=== PATIENT | female | born 1935 | race Caucasian/White ===

== ENCOUNTER 2019-02-05 02:23 | Inpatient (IN) | payer MEDICARE, OTHER ==
[~2019-02-05] VITALS: Ht 162.6 cm; Wt 68.2 kg
[2019-02-05] MEDS ORDERED: SOD CHLORIDE 0.9% 500 ML IV STA (02:27)
[2019-02-05 02:38] VITALS: Ht 162.6 cm; Wt 68.2 kg
[2019-02-05] MEDS: POTASSIUM CHLORIDE 100 ML IVPB SCH ×2 (04:06→06:02)
--- NOTE | 2019-02-05 04:07 | ERD ---
ER Documentation Chief Complaint Chief Complaint BIBRA fr home,vomit dark liquid,abd pain,black tarry stool,hematur X1 month HPI This is an 84-year-old female brought in from home with complaints of vomiting coffee-ground along with abdominal pain and black tarry stools on and off for the past month or tonight. She is had 2 episodes of black tarry vomiting along with 2 episodes of black tarry stool. No other current complaints. ROS All systems reviewed and are negative except as per history of present illness. Allergies Allergies: Coded Allergies: No Known Allergy (Unverified , 02/05/19) PMhx/Soc History of Surgery: Yes (lithotripsy,total cholecystectomy) Anesthesia Reaction: No Hx Neurological Disorder: No Hx Respiratory Disorders: No Hx Cardiac Disorders: Yes (HTN) Hx Psychiatric Problems: No Hx Miscellaneous Medical Probl: No Hx Alcohol Use: No Hx Substance Use: No Hx Tobacco Use: No Smoking Status: Never smoker Physical Exam Vitals Vital Signs Date Temp Pulse Resp B/P (MAP) Pulse Ox O2 O2 Flow FiO2 Time Delivery Rate 02/05/19 80 21 148/63 94 Room Air 03:30 (91) 02/05/19 78 17 144/66 98 Room Air 03:00 (92) 02/05/19 98.4 88 18 150/68 97 02:38 (95) Physical Exam Const: No acute distress Head: Atraumatic Eyes: Normal Conjunctiva ENT: Normal External Ears, Nose and Mouth. Neck: Full range of motion. No meningismus. Resp: Clear to auscultation bilaterally Cardio: Regular rate and rhythm, no murmurs Abd: Soft, non tender, non distended. Normal bowel sounds Skin: No petechiae or rashes Back: No midline or flank tenderness Ext: No cyanosis, or edema Neur: Awake and alert Psych: Normal Mood and Affect Result Diagram: 02/05/19 0244 02/05/19 0244 Results 24 hrs Laboratory Tests Test 02/05/19 02:44 White Blood Count 8.8 10^3/ul Red Blood Count 4.27 10^6/ul Hemoglobin 12.3 g/dl Hematocrit 37.8 % Mean Corpuscular Volume 88.5 fl Mean Corpuscular Hemoglobin 28.8 pg Mean Corpuscular Hemoglobin Concent 32.5 g/dl Red Cell Distribution Width 16.6 % Platelet Count 251 10^3/UL Mean Platelet Volume 10.2 fl Immature Granulocytes % 0.700 % Neutrophils % 72.7 % Lymphocytes % 18.1 % Monocytes % 8.2 % Eosinophils % 0.0 % Basophils % 0.3 % Nucleated Red Blood Cells % 0.0 /100WBC Immature Granulocytes # 0.060 10^3/ul Neutrophils # 6.4 10^3/ul Lymphocytes # 1.6 10^3/ul Monocytes # 0.7 10^3/ul Eosinophils # 0.0 10^3/ul Basophils # 0.0 10^3/ul Nucleated Red Blood Cells # 0.0 10^3/ul Prothrombin Time 13.2 Sec Prothrombin Time Ratio 1.0 INR International Normalized Ratio 0.99 Activated Partial Thromboplast Time 30.9 Sec Sodium Level 147 mmol/L Potassium Level 2.9 mmol/L Chloride Level 103 mmol/L Carbon Dioxide Level 32 mmol/L Anion Gap 12 Blood Urea Nitrogen 10 mg/dl Creatinine 0.62 mg/dl Est Glomerular Filtrat Rate mL/min mL/min Glucose Level 144 mg/dl Calcium Level 9.5 mg/dl Total Bilirubin 1.7 mg/dl Direct Bilirubin 0.70 mg/dl Indirect Bilirubin 1.0 mg/dl Aspartate Amino Transf (AST/SGOT) 117 IU/L Alanine Aminotransferase (ALT/SGPT) 75 IU/L Alkaline Phosphatase 322 IU/L Troponin I < 0.012 ng/ml Total Protein 7.1 g/dl Albumin 3.5 g/dl Globulin 3.60 g/dl Albumin/Globulin Ratio 0.97 Lipase 43 U/L Current Medications Medications Dose Sig/Gabriela Start Time Status Last (Trade) Ordered Route PRN Stop Time Admin Dose Reason Admin Sodium 500 ml @ Q1H STAT 02/05/19 DC 02/05/19 Chloride 500 mls/hr IV 02:27 02:51 02/05/19 03:26 Potassium 100 ml @ Q2H IVPB 02/05/19 Chloride 50 mls/hr 04:00 02/05/19 07:59 Procedures/MDM EKG: Rate/Rhythm: [Normal Sinus Rhythm] QRS, ST, T-waves: [No changes consistent w/ acute ischemia] Impression: [No evidence of ischemia or arrhythmia] Chest X-ray 1V Interpreted by me: Soft Tissue: No acute abnormalities Bones: No acute abnormalities Mediastinum/Cardiac Silhouette/Lungs: [No acute abnormalities] Medical decision makin-year-old female as well as space hematochezia along with hematemesis. Also found to be hypokalemic which was repleted. Patient will be admitted for further evaluation and management. Departure Diagnosis: Primary Impression: Rectal hemorrhage Condition: Stable CON MICHAUD Feb 05, 2019 04:07
[2019-02-05] MEDS ORDERED: ACETAMINOPHEN 325 MG TAB PO PRN (05:30)
[2019-02-05] MEDS ORDERED: ONDANSETRON 4 MG INJ IV PRN (05:30)
[2019-02-05] MEDS ORDERED: SOD CHLORIDE 0.9% 1,000 ML IV SCH (05:31)
[2019-02-05] MEDS ORDERED: ONDANSETRON 4 MG INJ IV STA (05:47)
[2019-02-05] MEDS ORDERED: morphine 4 MG/ML VIAL IV STA (05:47)
[2019-02-05] MEDS ORDERED: ONDANSETRON 4 MG INJ ONE (06:00)
[2019-02-05] MEDS ORDERED: NACL 0.9% 3 ML SYG IV SCH (06:00)
[2019-02-05] MEDS ORDERED: morphine 4 MG/ML VIAL ONE (06:00)
[2019-02-05] MEDS ORDERED: PIPER-TAZO 3.375 GM IV (PMX) 100 ML ONE (06:16)
[2019-02-05] MEDS: PIPER-TAZO 3.375 GM IV (PMX) 100 ML IVPB SCH ×3 (06:19→18:28)
[2019-02-05] MEDS ORDERED: BENA20TA4 PO (07:43)
[2019-02-05] MEDS ORDERED: METO-336 PO (07:43)
[2019-02-05] MEDS ORDERED: ATOR10TA65 PO (07:44)
[2019-02-05] MEDS ORDERED: AMLO-147 PO (07:44)
[2019-02-05] MEDS ORDERED: ASPI81TA52 PO (07:44)
[2019-02-05] MEDS ORDERED: POTA10TA37 PO (07:45)
[2019-02-05] MEDS ORDERED: DOCU250C68 PO (07:45)
[2019-02-05] MEDS ORDERED: ESOM40CA PO (07:45)
[2019-02-05] MEDS ORDERED: TAMS-14 PO (07:46)
[2019-02-05 08:00] VITALS: BP 119/78; PULSE 86; RESP 18
[2019-02-05] MEDS: ONDANSETRON 4 MG INJ IV PRN (08:53)
[2019-02-05] MEDS ORDERED: FAMOTIDINE 20 MG INJ IV SCH (09:00)
--- NOTE | 2019-02-05 09:09 | PN ---
Date/Time of Note Date/Time of Note DATE: 02/05/19 TIME: 09:09 Assessment/Plan Lines/Catheters IV C[facility]ter Type (from [facility]): Saline Lock Assessment/Plan Result Diagram: 02/05/19 0803 02/05/19 0800 Results 24hrs Laboratory Tests Test 02/05/19 02:43 02/05/19 02:44 02/05/19 03:50 02/05/19 08:00 Hemoglobin A1c 5.5 Magnesium Level 1.6 L Triglycerides Level 223 H Cholesterol Level 198 LDL Cholesterol, 116 Calculated HDL Cholesterol 37 Cholesterol/HDL 5.3 Ratio Thyroid Stimulating Pending Hormone (TSH) White Blood Count 8.8 Red Blood Count 4.27 Hemoglobin 12.3 Hematocrit 37.8 Mean Corpuscular 88.5 Volume Mean Corpuscular 28.8 L Hemoglobin Mean Corpuscular 32.5 Hemoglobin Concent Red Cell 16.6 H Distribution Width Platelet Count 251 Mean Platelet Volume 10.2 Immature 0.700 H Granulocytes % Neutrophils % 72.7 Lymphocytes % 18.1 Monocytes % 8.2 Eosinophils % 0.0 Basophils % 0.3 Nucleated Red Blood 0.0 Cells % Immature 0.060 H Granulocytes # Neutrophils # 6.4 Lymphocytes # 1.6 Monocytes # 0.7 Eosinophils # 0.0 Basophils # 0.0 Nucleated Red Blood 0.0 Cells # Prothrombin Time 13.2 Prothrombin Time 1.0 Ratio INR International 0.99 Normalized Ratio Activated 30.9 Partial Thromboplast Time Sodium Level 147 H 147 H Potassium Level 2.9 *L 3.5 Chloride Level 103 106 Carbon Dioxide Level 32 H 31 Anion Gap 12 10 Blood Urea Nitrogen 10 8 Creatinine 0.62 0.63 Est Glomerular Filtrat Rate mL/min Glucose Level 144 106 Calcium Level 9.5 9.0 Total Bilirubin 1.7 H Direct Bilirubin 0.70 H Indirect Bilirubin 1.0 Aspartate Amino 117 H Transf (AST/SGOT) Alanine 75 H Aminotransferase (AL T/SGPT) Alkaline Phosphatase 322 H Troponin I < 0.012 Total Protein 7.1 Albumin 3.5 Globulin 3.60 H Albumin/Globulin 0.97 Ratio Lipase 43 Urine Color YELLOW Urine Clarity CLEAR Urine pH 9.0 Urine Specific 1.010 [place] Urine Ketones TRACE A Urine Nitrite NEGATIVE Urine Bilirubin NEGATIVE Urine Urobilinogen 2+ H Urine Leukocyte NEGATIVE Esterase Urine Hemoglobin NEGATIVE Urine Glucose NEGATIVE Urine Total Protein NEGATIVE Test 02/05/19 08:03 White Blood Count 8.7 Red Blood Count 3.84 L Hemoglobin 11.3 L Hematocrit 34.8 L Mean Corpuscular 90.6 Volume Mean Corpuscular 29.4 Hemoglobin Mean Corpuscular 32.5 Hemoglobin Concent Red Cell 16.7 H Distribution Width Platelet Count 242 Mean Platelet Volume 10.4 Immature 0.600 H Granulocytes % Neutrophils % 70.7 Lymphocytes % 21.4 Monocytes % 7.0 Eosinophils % 0.0 Basophils % 0.3 Nucleated Red Blood 0.0 Cells % Immature 0.050 H Granulocytes # Neutrophils # 6.2 Lymphocytes # 1.9 Monocytes # 0.6 Eosinophils # 0.0 Basophils # 0.0 Nucleated Red Blood 0.0 Cells # Exam/Review of Systems Exam Vitals Vital Signs Date Temp Pulse Resp B/P (MAP) Pulse Ox O2 O2 Flow FiO2 Time Delivery Rate 02/05/19 75 22 110/66 100 Room Air 08:22 (81) 02/05/19 98.5 08:00 Intake and Output 02/04/19 02/04/19 02/05/19 1515:00 23:00 07:00 IntakeIntake Total 600 ml BalanceBalance 600 ml Results Results 24hrs Laboratory Tests Test 02/05/19 02:43 02/05/19 02:44 02/05/19 03:50 02/05/19 08:00 Hemoglobin A1c 5.5 Magnesium Level 1.6 L Triglycerides Level 223 H Cholesterol Level 198 LDL Cholesterol, 116 Calculated HDL Cholesterol 37 Cholesterol/HDL 5.3 Ratio Thyroid Stimulating Pending Hormone (TSH) White Blood Count 8.8 Red Blood Count 4.27 Hemoglobin 12.3 Hematocrit 37.8 Mean Corpuscular 88.5 Volume Mean Corpuscular 28.8 L Hemoglobin Mean Corpuscular 32.5 Hemoglobin Concent Red Cell 16.6 H Distribution Width Platelet Count 251 Mean Platelet Volume 10.2 Immature 0.700 H Granulocytes % Neutrophils % 72.7 Lymphocytes % 18.1 Monocytes % 8.2 Eosinophils % 0.0 Basophils % 0.3 Nucleated Red Blood 0.0 Cells % Immature 0.060 H Granulocytes # Neutrophils # 6.4 Lymphocytes # 1.6 Monocytes # 0.7 Eosinophils # 0.0 Basophils # 0.0 Nucleated Red Blood 0.0 Cells # Prothrombin Time 13.2 Prothrombin Time 1.0 Ratio INR International 0.99 Normalized Ratio Activated 30.9 Partial Thromboplast Time Sodium Level 147 H 147 H Potassium Level 2.9 *L 3.5 Chloride Level 103 106 Carbon Dioxide Level 32 H 31 Anion Gap 12 10 Blood Urea Nitrogen 10 8 Creatinine 0.62 0.63 Est Glomerular Filtrat Rate mL/min Glucose Level 144 106 Calcium Level 9.5 9.0 Total Bilirubin 1.7 H Direct Bilirubin 0.70 H Indirect Bilirubin 1.0 Aspartate Amino 117 H Transf (AST/SGOT) Alanine 75 H Aminotransferase (AL T/SGPT) Alkaline Phosphatase 322 H Troponin I < 0.012 Total Protein 7.1 Albumin 3.5 Globulin 3.60 H Albumin/Globulin 0.97 Ratio Lipase 43 Urine Color YELLOW Urine Clarity CLEAR Urine pH 9.0 Urine Specific 1.010 [place] Urine Ketones TRACE A Urine Nitrite NEGATIVE Urine Bilirubin NEGATIVE Urine Urobilinogen 2+ H Urine Leukocyte NEGATIVE Esterase Urine Hemoglobin NEGATIVE Urine Glucose NEGATIVE Urine Total Protein NEGATIVE Test 02/05/19 08:03 White Blood Count 8.7 Red Blood Count 3.84 L Hemoglobin 11.3 L Hematocrit 34.8 L Mean Corpuscular 90.6 Volume Mean Corpuscular 29.4 Hemoglobin Mean Corpuscular 32.5 Hemoglobin Concent Red Cell 16.7 H Distribution Width Platelet Count 242 Mean Platelet Volume 10.4 Immature 0.600 H Granulocytes % Neutrophils % 70.7 Lymphocytes % 21.4 Monocytes % 7.0 Eosinophils % 0.0 Basophils % 0.3 Nucleated Red Blood 0.0 Cells % Immature 0.050 H Granulocytes # Neutrophils # 6.2 Lymphocytes # 1.9 Monocytes # 0.6 Eosinophils # 0.0 Basophils # 0.0 Nucleated Red Blood 0.0 Cells # Medications Medication Current Medications Piperacillin Sod/ Tazobactam Sod 100 ml @ 200 mls/hr Q6 IVPB Last administered on 02/05/19at 06:19; Admin Dose 200 MLS/HR; Start 02/05/19 at 06:00 Sodium Chloride 1,000 ml @ 75 mls/hr [id number] IV Last administered on 02/05/19at 06:02; Admin Dose 75 MLS/HR; Start 02/05/19 at 05:31 IV Flush (NS 3 ml) 3 ml PER PROTOCOL IV ; Start 02/05/19 at 06:00 Ondansetron HCl (Zofran Inj) 4 mg Q6H PRN IV NAUSEA/VOMITING Last administered on 02/05/19at 08:53; Admin Dose 4 MG; Start 02/05/19 at 06:00 Acetaminophen (Tylenol Tab) 650 mg Q6H PRN PO .PAIN 1-3 OR TEMP; Start 02/05/19 at 06:00 Morphine Sulfate (morphine) 2 mg Q4H PRN IV .SEVERE PAIN 7-10; Start 02/05/19 at 06:00 Famotidine (Pepcid Iv) 20 mg Q12 IV Last administered on 02/05/19at 08:51; Admin Dose 20 MG; Start 02/05/19 at 09:00 Amlodipine Besylate (Norvasc) 10 mg BID PO ; Start 02/05/19 at 21:00; Status UNV Atorvastatin Calcium (Lipitor) 10 mg QHS PO ; Start 02/05/19 at 21:00; Status UNV Benazepril HCl (Lotensin) 20 mg BID PO ; Start 02/05/19 at 21:00; Status UNV Docusate Sodium (Colace) 250 mg DAILY PO ; Start 02/06/19 at 09:00; Status UNV Metoprolol Succinate (Toprol Xl) 100 mg DAILY PO ; Start 02/06/19 at 09:00; Status UNV Tamsulosin HCl (Flomax) 0.4 mg DAILY PO ; Start 02/06/19 at 09:00; Status UNV JENNIE JEAN BAPTISTE NP Feb 05, 2019 09:09
--- NOTE | 2019-02-05 09:13 | HP ---
Date/Time of Note Date/Time of Note DATE: 02/05/19 TIME: 09:13 Assessment/Plan VTE Prophylaxis SCD applied (from Nsg): Yes Pharmacological prophylaxis: NA/contraindicated Pharm contraindication: bleeding Lines/Catheters IV Catheter Type (from Nrsg): Saline Lock Assessment/Plan Hospital Course SUBJECTIVE: Lying in bed, having nausea. Also having right-sided and epigastric abdominal pain OBJECTIVE: Vital signs-see below PHYSICAL EXAM: Constitutional: Elderly Sudanese female,not in acute distress. HEENT: Head atraumatic and normocephalic. Eyes: Extraocular muscles intact. Anicteric sclerae. Pupils equal bilaterally, reactive to light. NECK: Supple without lymph node. CHEST: Clear and good breath sounds equally. No wheezing. No rhonchi. HEART: S1, S2. Regular rate and rhythm. ABDOMEN:Epigastric/RUL/RLL tenderness. Soft with no rebound tenderness. Bowel sounds hypoactive. EXTREMITIES: No cyanosis, clubbing or edema. NEUROLOGIC: Alert and oriented x3. No focal deficit. No sensory deficit. PSYCHOSOCIAL: No signs of depression. INTEGUMENTARY: No open wounds. ASSESSMENT AND PLAN:84 yo F w/htn,dlp,cholecystectomy,renal stones, lithotripsy here w/ coffee-ground emesis, epigastric/right-sided abdominal pain, and black tarry stoolx 1mos duration got worse this morning with subjective fevers... Abdominal pain with ?coffee-ground emesis/tarry stool -Obtain stool OB -Protonix drip -N.p.o in anticipation for EGD -IV fluids -GI consult Transaminase elevation with hyperbilirubinemia -Abdominal exam shows tenderness to epigastric/RUQ -Proceed with MRCP to rule out choledocholithiasis -Follow-up GI recommendations Mild diverticulitis -Could be attributing to abdominal pain although location of pain is right- sided.. -We will give empiric antimicrobials -Bowel rest, IV fluids Anemia, rule out GI bleed -Monitor H&H closely and transfuse as needed. Currently H&H stable. Electronic derangement with hypernatremia/hypokalemia likely secondary to GI loss/volume contraction -IV fluids. Monitor lites level closely. Hypertension -Currently stable. Resume antihypertensives once stable for p.o. Dyslipidemia -Resume statin once stable for p.o. Urinary retention -Resume Flomax when stable for p.o. DVT prophylaxis: SCDs PUD prophylaxis: Protonix CODE STATUS: Full code Diet: N.p.o. Rest of the management depend on hospital course. Approximately 60 m spent on this history and physical. Patient was seen in collaboration with Dr. Cruz. Result Diagram: 02/05/19 0803 02/05/19 0800 Results 24hrs Laboratory Tests Test 02/05/19 02:43 02/05/19 02:44 02/05/19 03:50 02/05/19 08:00 Hemoglobin A1c 5.5 Magnesium Level 1.6 L Triglycerides Level 223 H Cholesterol Level 198 LDL Cholesterol, 116 Calculated HDL Cholesterol 37 Cholesterol/HDL 5.3 Ratio Thyroid Stimulating Pending Hormone (TSH) White Blood Count 8.8 Red Blood Count 4.27 Hemoglobin 12.3 Hematocrit 37.8 Mean Corpuscular 88.5 Volume Mean Corpuscular 28.8 L Hemoglobin Mean Corpuscular 32.5 Hemoglobin Concent Red Cell 16.6 H Distribution Width Platelet Count 251 Mean Platelet Volume 10.2 Immature 0.700 H Granulocytes % Neutrophils % 72.7 Lymphocytes % 18.1 Monocytes % 8.2 Eosinophils % 0.0 Basophils % 0.3 Nucleated Red Blood 0.0 Cells % Immature 0.060 H Granulocytes # Neutrophils # 6.4 Lymphocytes # 1.6 Monocytes # 0.7 Eosinophils # 0.0 Basophils # 0.0 Nucleated Red Blood 0.0 Cells # Prothrombin Time 13.2 Prothrombin Time 1.0 Ratio INR International 0.99 Normalized Ratio Activated 30.9 Partial Thromboplast Time Sodium Level 147 H 147 H Potassium Level 2.9 *L 3.5 Chloride Level 103 106 Carbon Dioxide Level 32 H 31 Anion Gap 12 10 Blood Urea Nitrogen 10 8 Creatinine 0.62 0.63 Est Glomerular Filtrat Rate mL/min Glucose Level 144 106 Calcium Level 9.5 9.0 Total Bilirubin 1.7 H Direct Bilirubin 0.70 H Indirect Bilirubin 1.0 Aspartate Amino 117 H Transf (AST/SGOT) Alanine 75 H Aminotransferase (AL T/SGPT) Alkaline Phosphatase 322 H Troponin I < 0.012 Total Protein 7.1 Albumin 3.5 Globulin 3.60 H Albumin/Globulin 0.97 Ratio Lipase 43 Urine Color YELLOW Urine Clarity CLEAR Urine pH 9.0 Urine Specific 1.010 [place] Urine Ketones TRACE A Urine Nitrite NEGATIVE Urine Bilirubin NEGATIVE Urine Urobilinogen 2+ H Urine Leukocyte NEGATIVE Esterase Urine Hemoglobin NEGATIVE Urine Glucose NEGATIVE Urine Total Protein NEGATIVE Test 02/05/19 08:03 White Blood Count 8.7 Red Blood Count 3.84 L Hemoglobin 11.3 L Hematocrit 34.8 L Mean Corpuscular 90.6 Volume Mean Corpuscular 29.4 Hemoglobin Mean Corpuscular 32.5 Hemoglobin Concent Red Cell 16.7 H Distribution Width Platelet Count 242 Mean Platelet Volume 10.4 Immature 0.600 H Granulocytes % Neutrophils % 70.7 Lymphocytes % 21.4 Monocytes % 7.0 Eosinophils % 0.0 Basophils % 0.3 Nucleated Red Blood 0.0 Cells % Immature 0.050 H Granulocytes # Neutrophils # 6.2 Lymphocytes # 1.9 Monocytes # 0.6 Eosinophils # 0.0 Basophils # 0.0 Nucleated Red Blood 0.0 Cells # HPI/ROS Admit Date/Time Admit Date/Time Feb 05, 2019 at 05:27 Hx of Present Illness This is a 84-year-old Sudanese speaking female with a past medical history of hypertension, dyslipidemia, urinary retention, kidney stones, status post lithotripsies in the past, open cholecystectomy 20 years ago, presented to the emergency room with worsening nausea with coffee-ground emesis, right-sided and epigastric abdominal pain with subjective fevers started this morning at 5:00. 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 Ashton tomorrow. She was also having loss of appetite secondary to nausea and vomiting and had also lost 10 pounds of weight in the last month. Patient denies shortness of breath, palpitation, chest pain, dizziness, headache, loss of consciousness, numbness, tingling, diarrhea, constipation, or other constitutional symptoms. In the emergency room, patient's initial hemoglobin 12.3/hematocrit 37.8 which then dropped to 11.3/34.8. Patient also had a sodium level of 147, potassium 2.9, magnesium 1.6, total bilirubin 1.7, direct bilirubin 0.70, AST 117, ALT 75, alkaline phosphatase 322. Patient UA also showed 2+ urobilinogen. Coag studies negative. Abdominal CT showed mild acute diverticulitis of the mild to proximal sigmoid colon without abscess or free air. There was also numerous bilateral nonobstructing renal calcified calculi. There is also evidence of hepatomegaly with old granulomatous disease. There also showed a central intra-and extrahepatic biliary ductal dilatation to the level of pancreatic head without obstruction. ROS A 12 point review of system was assessed and is negative other than what is mentioned in the HPI. PMH/Family/Social Past Medical History See HPI Medications Current Medications Piperacillin Sod/ Tazobactam Sod 100 ml @ 200 mls/hr Q6 IVPB Last administered on 02/05/19at 06:19; Admin Dose 200 MLS/HR; Start 02/05/19 at 06:00 Sodium Chloride 1,000 ml @ 75 mls/hr [id number] IV Last administered on 02/05/19at 06:02; Admin Dose 75 MLS/HR; Start 02/05/19 at 05:31 IV Flush (NS 3 ml) 3 ml PER PROTOCOL IV ; Start 02/05/19 at 06:00 Ondansetron HCl (Zofran Inj) 4 mg Q6H PRN IV NAUSEA/VOMITING Last administered on 02/05/19at 08:53; Admin Dose 4 MG; Start 02/05/19 at 06:00 Acetaminophen (Tylenol Tab) 650 mg Q6H PRN PO .PAIN 1-3 OR TEMP; Start 02/05/19 at 06:00 Morphine Sulfate (morphine) 2 mg Q4H PRN IV .SEVERE PAIN 7-10; Start 02/05/19 at 06:00 Famotidine (Pepcid Iv) 20 mg Q12 IV Last administered on 02/05/19at 08:51; Admin Dose 20 MG; Start 02/05/19 at 09:00 Amlodipine Besylate (Norvasc) 10 mg BID PO ; Start 02/05/19 at 21:00; Status UNV Atorvastatin Calcium (Lipitor) 10 mg QHS PO ; Start 02/05/19 at 21:00; Status UNV Benazepril HCl (Lotensin) 20 mg BID PO ; Start 02/05/19 at 21:00; Status UNV Docusate Sodium (Colace) 250 mg DAILY PO ; Start 02/06/19 at 09:00; Status UNV Metoprolol Succinate (Toprol Xl) 100 mg DAILY PO ; Start 02/06/19 at 09:00; Status UNV Tamsulosin HCl (Flomax) 0.4 mg DAILY PO ; Start 02/06/19 at 09:00; Status UNV Coded Allergies: No Known Allergy (Unverified , 02/05/19) Past Surgical History See HPI Social History No history of alcohol, smoking or illicit drug use Smoking Status: Never smoker Exam/Review of Systems Vital Signs Vitals Vital Signs Date Temp Pulse Resp B/P (MAP) Pulse Ox O2 O2 Flow FiO2 Time Delivery Rate 02/05/19 75 22 110/66 100 Room Air 08:22 (81) 02/05/19 98.5 08:00 Intake and Output 02/04/19 02/04/19 02/05/19 1515:00 23:00 07:00 IntakeIntake Total 600 ml BalanceBalance 600 ml JENNIE JEAN BAPTISTE NP Feb 05, 2019 09:13
[2019-02-05] MEDS ORDERED: METOCLOPRAMIDE 10 MG INJ IV ONE (09:30)
[2019-02-05] MEDS ORDERED: hydrALAzine 20 MG INJ IV PRN (09:30)
[2019-02-05] MEDS ORDERED: METOCLOPRAMIDE 10 MG INJ IV PRN (09:30)
[2019-02-05] MEDS: DOCUSATE SODIUM 250 MG CAP PO SCH (10:00)
[2019-02-05] MEDS: METOPROLOL (XL) 100 MG TAB PO SCH (10:00)
[2019-02-05] MEDS: TAMSULOSIN (SR) 0.4 MG CAP PO SCH (10:00)
[2019-02-05] MEDS: FISH OIL 1,000 MG CAP PO SCH ×2 (11:00→20:37)
[2019-02-05] MEDS ORDERED: MAGNESIUM SULFATE 2 GM/50 ML 50 ML IVPB ONE (11:00)
[2019-02-05] MEDS: PANTOPRAZOLE IV 80 MG in SOD CHLORIDE 0.9% 100 ML IV SCH ×3 (11:37→20:39)
[2019-02-05] MEDS: SOD CHLORIDE 0.45% 1,000 ML IV SCH ×2 (11:41→23:00)
[2019-02-05] MEDS: ACETAMINOPHEN 650 MG SUPP PR PRN ×2 (12:28→18:28)
--- NOTE | 2019-02-05 13:29 | CONS ---
Assessment/Plan Assessment/Plan Hospital Course (Demo Recall) Summary Assessment and Plan: Assessment: Reported coffee-ground emesis/melena Normocytic anemia Transaminitis with direct hyperbilirubinemia Fevers Sigmoid diverticulitis, mild Hypokalemia-replaced History of cholecystectomy History of Renal stone -S/p lithotripsy Hypertension Dyslipidemia Urinary retention Plan: MRCP- pending-if positive will proceed with ERCP. if negative patient will need EGD to further assess coffee-ground emesis and melena. Continue PPI drip Patient currently on Zosyn Keep NPO for now. Continue to trend LFTs Patient seen in collaboration with Dr. Nieves CC: RAYNA NIEVES MD ; Consultation Date/Type/Reason Admit Date/Time Feb 05, 2019 at 05:27 Date of Consultation: Feb 05, 2019 Type of Consult GI Reason for Consultation Sigmoid diverticulitis. mild Coffee-ground emesis Transaminitis with direct bilirubin rule out choledocholithiasis Date/Time of Note DATE: 02/05/19 TIME: 13:16 Hx of Present Illness This is an 84-year-old Italian female vwho is been admitted for a multitude of issues including mild sigmoid diverticulitis, transaminitis with direct hyperbilirubinemia, normocytic anemia reports of coffee-ground emesis with right-sided, epigastric pain, and fevers. Today hemoglobin is stable at 11.3, INR 0.99 direct bilirubin has increased from this morning at 244 it was noted to be at that time 0.7 with a total bilirubin of 1.7. At 8:00 this morning bilirubin was rechecked showing a total of 2.1 and a direct of 1.1 additionally she has an elevated alkaline phosphatase in the 300s and AST/ALT.the past medical history of hypertension, dyslipidemia, urinary retention, kidney stones status post lithotripsy in the past and a cholecystectomy over 20 years ago. At time evaluation patient complains of epigastric and right upper quadrant pain family is at bedside who states patient has been taking ibuprofen at least once or twice a day for the past 20 days. However 2 days ago she was unable to tolerate ibuprofen any further had episodes of emesis after taking medication therefore medication was switched to Tylenol per family member patient only took one low-dose Tylenol per day x3 days. Discussed results of imaging and lab tests thus far discussed plan for MRCP if positive will proceed with ERCP if negative patient will still require EGD to further assess coffee-ground emesis especially with recent NSAID use. Understanding was verbalized and agreed upon. Review of Systems: A 12 system, review was conducted and is negative except as noted in the HPI or here. Past Medical History Home Meds Reported Medications Tamsulosin Hcl* (Flomax*) 0.4 Mg Cap.er.24h, 0.4 MG PO DAILY, CAP 02/05/19 Docusate Sodium* (Dok*) 250 Mg Capsule, 250 MG PO DAILY, #30 CAP 02/05/19 Esomeprazole Mag Trihydrate (Nexium) 40 Mg Capsule.dr, 40 MG PO DAILY, #30 CAP 02/05/19 Potassium Chloride* (K-Dur*) 10 Meq Tab.prt.sr, 10 MEQ PO TID, TAB 02/05/19 Atorvastatin Calcium (Atorvastatin Calcium) 10 Mg Tablet, 10 MG PO QHS, #30 TAB 02/05/19 Aspirin (Low Dose Aspirin) 81 Mg Tablet.dr, 81 MG PO DAILY, #30 TAB 02/05/19 Amlodipine Besylate* (Amlodipine Besylate*) 10 Mg Tablet, 10 MG PO BID, #30 TAB 02/05/19 Metoprolol Succinate* (Toprol XL*) 100 Mg Tab.sr.24h, 100 MG PO DAILY, #30 TAB 02/05/19 Benazepril Hcl* (Benazepril Hcl*) 20 Mg Tablet, 20 MG PO BID, #60 TAB 02/05/19 Medications Current Medications Piperacillin Sod/ Tazobactam Sod 100 ml @ 200 mls/hr Q6 IVPB Last administered on 02/05/19at 12:28; Admin Dose 200 MLS/HR; Start 02/05/19 at 06:00 IV Flush (NS 3 ml) 3 ml PER PROTOCOL IV ; Start 02/05/19 at 06:00 Ondansetron HCl (Zofran Inj) 4 mg Q6H PRN IV NAUSEA/VOMITING Last administered on 02/05/19at 08:53; Admin Dose 4 MG; Start 02/05/19 at 06:00 Acetaminophen (Tylenol Tab) 650 mg Q6H PRN PO .PAIN 1-3 OR TEMP; Start 02/05/19 at 06:00 Morphine Sulfate (morphine) 2 mg Q4H PRN IV .SEVERE PAIN 7-10; Start 02/05/19 at 06:00 Amlodipine Besylate (Norvasc) 10 mg BID PO ; Start 02/05/19 at 21:00 Atorvastatin Calcium (Lipitor) 10 mg QHS PO ; Start 02/05/19 at 21:00 Benazepril HCl (Lotensin) 20 mg BID PO ; Start 02/05/19 at 21:00 Docusate Sodium (Colace) 250 mg DAILY PO ; Start 02/05/19 at 10:00 Metoprolol Succinate (Toprol Xl) 100 mg DAILY PO ; Start 02/05/19 at 10:00 Tamsulosin HCl (Flomax) 0.4 mg DAILY PO ; Start 02/05/19 at 10:00 Pantoprazole 80 mg/Sodium Chloride 100 ml @ 10 mls/hr Q10H IV Last administered on 02/05/19at 11:37; Admin Dose 10 MLS/HR; Start 02/05/19 at 09:30 Metoclopramide HCl (Reglan) 5 mg Q6H PRN IV nausea/vomiting; Start 02/05/19 at 09:30 Hydralazine HCl (Apresoline) 10 mg Q6H PRN IV sbp>160; Start 02/05/19 at 09:30 Fish Oil (Fish Oil) 1,000 mg BID PO ; Start 02/05/19 at 11:00 Sodium Chloride 1,000 ml @ 80 mls/hr [id number] IV Last administered on 02/05/19at 11:41; Admin Dose 80 MLS/HR; Start 02/05/19 at 10:30 Acetaminophen (Tylenol Supp) 650 mg Q6H PRN [place] FEVER Last administered on 02/05/19at 12:28; Admin Dose 650 MG; Start 02/05/19 at 12:30 Allergies: Coded Allergies: No Known Allergy (Unverified , 02/05/19) Social History Smoking Status: Never smoker Exam/Review of Systems Exam Vitals Vital Signs Date Temp Pulse Resp B/P (MAP) Pulse Ox O2 O2 Flow FiO2 Time Delivery Rate 02/05/19 101.0 12:28 02/05/19 Nasal 2.0 08:55 Cannula 02/05/19 75 22 110/66 100 08:22 (81) Intake and Output 02/04/19 02/04/19 02/05/19 1515:00 23:00 07:00 IntakeIntake Total 600 ml BalanceBalance 600 ml Exam PHYSICAL EXAMINATION: GENERAL: Well developed, well nourished, alert & oriented x 3, in no acute distr ess SKIN: No lesions. HEAD: Normocephalic, atraumatic, no tenderness. EYES: Pupils equal reactive to light and accommodation, no discharge. EARS/NOSE AND THROAT: Ears normal, nose normal. NECK: Supple, no masses. CHEST: Inspection within normal limits. CARDIOVASCULAR: Heart: Regular rate and rhythm RESPIRATORY: Lungs clear to auscultation GASTROINTESTINAL AND LIVER: Abdomen: Soft, epigastric and right-sided pain, non- distended, no hernias, no masses, no organomegaly, no ascites, no guarding, no rebound tenderness, normoactive bowel sounds. Rectal: Deferred. EXTREMITIES: No cyanosis, clubbing or edema. Results Result Diagram: 02/05/19 0803 02/05/19 0800 Results 24hrs Laboratory Tests Test 02/05/19 02:43 02/05/19 02:44 02/05/19 03:50 02/05/19 08:00 Hemoglobin A1c 5.5 Magnesium Level 1.6 L Triglycerides Level 223 H Cholesterol Level 198 LDL Cholesterol, 116 Calculated HDL Cholesterol 37 Cholesterol/HDL 5.3 Ratio Thyroid Stimulating 2.200 Hormone (TSH) White Blood Count 8.8 Red Blood Count 4.27 Hemoglobin 12.3 Hematocrit 37.8 Mean Corpuscular 88.5 Volume Mean Corpuscular 28.8 L Hemoglobin Mean Corpuscular 32.5 Hemoglobin Concent Red Cell 16.6 H Distribution Width Platelet Count 251 Mean Platelet Volume 10.2 Immature 0.700 H Granulocytes % Neutrophils % 72.7 Lymphocytes % 18.1 Monocytes % 8.2 Eosinophils % 0.0 Basophils % 0.3 Nucleated Red Blood 0.0 Cells % Immature 0.060 H Granulocytes # Neutrophils # 6.4 Lymphocytes # 1.6 Monocytes # 0.7 Eosinophils # 0.0 Basophils # 0.0 Nucleated Red Blood 0.0 Cells # Prothrombin Time 13.2 Prothrombin Time 1.0 Ratio INR International 0.99 Normalized Ratio Activated 30.9 Partial Thromboplast Time Sodium Level 147 H 147 H Potassium Level 2.9 *L 3.5 Chloride Level 103 106 Carbon Dioxide Level 32 H 31 Anion Gap 12 10 Blood Urea Nitrogen 10 8 Creatinine 0.62 0.63 Est Glomerular Filtrat Rate mL/min Glucose Level 144 106 Calcium Level 9.5 9.0 Total Bilirubin 1.7 H 2.1 H Direct Bilirubin 0.70 H 1.10 H Indirect Bilirubin 1.0 1.0 Aspartate Amino 117 H 104 H Transf (AST/SGOT) Alanine 75 H 70 H Aminotransferase (AL T/SGPT) Alkaline Phosphatase 322 H 304 H Troponin I < 0.012 Total Protein 7.1 6.8 Albumin 3.5 3.3 Globulin 3.60 H Albumin/Globulin 0.97 Ratio Lipase 43 58 Urine Color YELLOW Urine Clarity CLEAR Urine pH 9.0 Urine Specific 1.010 [place] Urine Ketones TRACE A Urine Nitrite NEGATIVE Urine Bilirubin NEGATIVE Urine Urobilinogen 2+ H Urine Leukocyte NEGATIVE Esterase Urine Hemoglobin NEGATIVE Urine Glucose NEGATIVE Urine Total Protein NEGATIVE Amylase Level 49 Test 02/05/19 08:03 White Blood Count 8.7 Red Blood Count 3.84 L Hemoglobin 11.3 L Hematocrit 34.8 L Mean Corpuscular 90.6 Volume Mean Corpuscular 29.4 Hemoglobin Mean Corpuscular 32.5 Hemoglobin Concent Red Cell 16.7 H Distribution Width Platelet Count 242 Mean Platelet Volume 10.4 Immature 0.600 H Granulocytes % Neutrophils % 70.7 Lymphocytes % 21.4 Monocytes % 7.0 Eosinophils % 0.0 Basophils % 0.3 Nucleated Red Blood 0.0 Cells % Immature 0.050 H Granulocytes # Neutrophils # 6.2 Lymphocytes # 1.9 Monocytes # 0.6 Eosinophils # 0.0 Basophils # 0.0 Nucleated Red Blood 0.0 Cells # Medications Medication Current Medications Piperacillin Sod/ Tazobactam Sod 100 ml @ 200 mls/hr Q6 IVPB Last administered on 02/05/19at 12:28; Admin Dose 200 MLS/HR; Start 02/05/19 at 06:00 IV Flush (NS 3 ml) 3 ml PER PROTOCOL IV ; Start 02/05/19 at 06:00 Ondansetron HCl (Zofran Inj) 4 mg Q6H PRN IV NAUSEA/VOMITING Last administered on 02/05/19at 08:53; Admin Dose 4 MG; Start 02/05/19 at 06:00 Acetaminophen (Tylenol Tab) 650 mg Q6H PRN PO .PAIN 1-3 OR TEMP; Start 02/05/19 at 06:00 Morphine Sulfate (morphine) 2 mg Q4H PRN IV .SEVERE PAIN 7-10; Start 02/05/19 at 06:00 Amlodipine Besylate (Norvasc) 10 mg BID PO ; Start 02/05/19 at 21:00 Atorvastatin Calcium (Lipitor) 10 mg QHS PO ; Start 02/05/19 at 21:00 Benazepril HCl (Lotensin) 20 mg BID PO ; Start 02/05/19 at 21:00 Docusate Sodium (Colace) 250 mg DAILY PO ; Start 02/05/19 at 10:00 Metoprolol Succinate (Toprol Xl) 100 mg DAILY PO ; Start 02/05/19 at 10:00 Tamsulosin HCl (Flomax) 0.4 mg DAILY PO ; Start 02/05/19 at 10:00 Pantoprazole 80 mg/Sodium Chloride 100 ml @ 10 mls/hr Q10H IV Last administered on 02/05/19 11:37; Admin Dose 10 MLS/HR; Start 02/05/19 at 09:30 Metoclopramide HCl (Reglan) 5 mg Q6H PRN IV nausea/vomiting; Start 02/05/19 at 09:30 Hydralazine HCl (Apresoline) 10 mg Q6H PRN IV sbp>160; Start 02/05/19 at 09:30 Fish Oil (Fish Oil) 1,000 mg BID PO ; Start 02/05/19 at 11:00 Sodium Chloride 1,000 ml @ 80 mls/hr [id number] IV Last administered on 02/05/19 11:41; Admin Dose 80 MLS/HR; Start 02/05/19 at 10:30 Acetaminophen (Tylenol Supp) 650 mg Q6H PRN [place] FEVER Last administered on 12:28; Admin Dose 650 MG; Start 02/05/19 at 12:30 MENDY WONG Feb 05, 2019 13:26
[2019-02-05 14:00] VITALS: BP 112/57; PULSE 85; RESP 18
[2019-02-05] MEDS ORDERED: INDOMETHACIN 50 MG SUPP PR ONE (17:00)
--- NOTE | 2019-02-05 17:14 | QN ---
Documentation Comment MRCP reviewed will postpone ERCP and obtain contrast MRI as definition of possible neoplasm critical to therapeutic options endoscopic and otherwise RAYNA JASON MD Feb 05, 2019 17:14
[2019-02-05 20:00] VITALS: BP 126/60; PULSE 75; RESP 17
[2019-02-05] MEDS: BENAZEPRIL 20 MG TAB PO SCH (20:37)
[2019-02-05] MEDS: ATORVASTATIN 10 MG TAB PO SCH (20:37)
[2019-02-05] MEDS: AMLODIPINE 10 MG TAB PO SCH (20:40)
[2019-02-06] VITALS (14 sets, daily range): BP systolic 107–162; BP diastolic 56–100; PULSE 63–73; RESP 13–24
[2019-02-06] MEDS: PIPER-TAZO 3.375 GM IV (PMX) 100 ML IVPB SCH ×4 (01:05→17:16)
[2019-02-06] MEDS: PANTOPRAZOLE IV 80 MG in SOD CHLORIDE 0.9% 100 ML IV SCH ×2 (05:30→16:37)
[2019-02-06] MEDS: FISH OIL 1,000 MG CAP PO SCH ×2 (09:00→20:32)
[2019-02-06] MEDS: AMLODIPINE 10 MG TAB PO SCH ×2 (09:00→20:32)
[2019-02-06] MEDS: BENAZEPRIL 20 MG TAB PO SCH ×2 (09:00→20:32)
[2019-02-06] MEDS: METOPROLOL (XL) 100 MG TAB PO SCH (09:00)
[2019-02-06] MEDS: TAMSULOSIN (SR) 0.4 MG CAP PO SCH (09:00)
[2019-02-06] MEDS: DOCUSATE SODIUM 250 MG CAP PO SCH (09:00)
[2019-02-06] MEDS: morphine 2 MG INJ IV PRN (09:28)
--- NOTE | 2019-02-06 09:33 | PN ---
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 Reported coffee-ground emesis/melena Normocytic anemia Transaminitis with direct hyperbilirubinemia Epigastric/RUQ pain Fevers- resolved Sigmoid diverticulitis, mild Hypokalemia-replaced History of cholecystectomy History of Renal stone -S/p lithotripsy Hypertension Dyslipidemia Urinary retention Plan: Continue PPI drip- continue for now- if HGB stable will change to BID in am MRI abd with/without contrast reviewed with Dr. Nieves Will order CT abd/pelvis with contrast as previous Ct was a noncontrast exam Will order tumor markers Pending results- we may proceed with ERCP later today Please keep patient NPO for now Patient seen in collaboration with Dr. Nieves Subjective: Course reviewed with nursing staff Patient interviewed and examined All labs, imaging and other results reviewed The patient resting in bed, with daughter at bedside to help translate Pt continues to c/o epigastric/RUQ pain- currently on morphine with appropriate relief Discussed results of MRi- and discussed current for today. understanding was verbalized No over signs of GI bleed noted. PHYSICAL EXAMINATION: GENERAL: Alert & oriented x 3, jaundice SKIN: No lesions. HEAD: Normocephalic, atraumatic, no tenderness. EYES: Pupils equal reactive to light and accommodation, icteric sclera no discharge. EARS/NOSE AND THROAT: Ears normal, nose normal. NECK: Supple, no masses. CHEST: Inspection within normal limits. CARDIOVASCULAR: Heart: Regular rate and rhythm RESPIRATORY: Lungs clear to auscultation GASTROINTESTINAL AND LIVER: Abdomen: Soft, epigastric and right-sided pain, non- distended, no hernias, no ascites, no guarding, no rebound tenderness, normoactive bowel sounds. Rectal: Deferred. EXTREMITIES: No cyanosis, clubbing or edema. Result Diagram: 02/06/19 0610 02/06/19 0610 Results 24hrs Laboratory Tests Test 02/05/19 14:09 02/05/19 16:14 02/06/19 06:10 White Blood Count 13.3 #H 8.4 # Red Blood Count 3.95 L 3.83 L Hemoglobin 11.5 L 11.3 L Hematocrit 35.4 L 34.6 L Mean Corpuscular Volume 89.6 90.3 Mean Corpuscular Hemoglobin 29.1 29.5 Mean Corpuscular Hemoglobin Concent 32.5 32.7 Red Cell Distribution Width 16.6 H 17.0 H Platelet Count 234 234 Mean Platelet Volume 10.7 H 10.7 H Immature Granulocytes % 0.600 H 0.500 H Neutrophils % 91.7 H 75.7 Lymphocytes % 4.4 L 16.5 Monocytes % 3.0 6.9 Eosinophils % 0.0 0.0 Basophils % 0.3 0.4 Nucleated Red Blood Cells % 0.0 0.0 Immature Granulocytes # 0.080 H 0.040 H Neutrophils # 12.2 H 6.4 Lymphocytes # 0.6 L 1.4 Monocytes # 0.4 0.6 Eosinophils # 0.0 0.0 Basophils # 0.0 0.0 Nucleated Red Blood Cells # 0.0 0.0 Lactic Acid Level 1.1 Sodium Level 147 H Potassium Level 3.1 L Chloride Level 112 H Carbon Dioxide Level 30 Anion Gap 5 Blood Urea Nitrogen 8 Creatinine 0.63 Est Glomerular Filtrat Rate mL/min Glucose Level 92 Calcium Level 9.4 Total Bilirubin 1.9 H Direct Bilirubin 1.00 H Indirect Bilirubin 0.9 Aspartate Amino Transf (AST/SGOT) 87 H Alanine Aminotransferase (ALT/SGPT) 58 Alkaline Phosphatase 267 H Total Protein 6.5 Albumin 3.1 L Globulin 3.40 H Albumin/Globulin Ratio 0.91 Exam/Review of Systems Exam Vitals Vital Signs Date Temp Pulse Resp B/P (MAP) Pulse Ox O2 O2 Flow FiO2 Time Delivery Rate 02/06/19 98.5 70 18 122/56 98 07:52 (78) 02/06/19 2.0 03:00 02/05/19 Nasal 20:45 Cannula Intake and Output 02/05/19 02/05/19 02/06/19 1515:00 23:00 07:00 IntakeIntake Total 150 ml 370 ml BalanceBalance 150 ml 370 ml Results Results 24hrs Laboratory Tests Test 02/05/19 14:09 02/05/19 16:14 02/06/19 06:10 White Blood Count 13.3 #H 8.4 # Red Blood Count 3.95 L 3.83 L Hemoglobin 11.5 L 11.3 L Hematocrit 35.4 L 34.6 L Mean Corpuscular Volume 89.6 90.3 Mean Corpuscular Hemoglobin 29.1 29.5 Mean Corpuscular Hemoglobin Concent 32.5 32.7 Red Cell Distribution Width 16.6 H 17.0 H Platelet Count 234 234 Mean Platelet Volume 10.7 H 10.7 H Immature Granulocytes % 0.600 H 0.500 H Neutrophils % 91.7 H 75.7 Lymphocytes % 4.4 L 16.5 Monocytes % 3.0 6.9 Eosinophils % 0.0 0.0 Basophils % 0.3 0.4 Nucleated Red Blood Cells % 0.0 0.0 Immature Granulocytes # 0.080 H 0.040 H Neutrophils # 12.2 H 6.4 Lymphocytes # 0.6 L 1.4 Monocytes # 0.4 0.6 Eosinophils # 0.0 0.0 Basophils # 0.0 0.0 Nucleated Red Blood Cells # 0.0 0.0 Lactic Acid Level 1.1 Sodium Level 147 H Potassium Level 3.1 L Chloride Level 112 H Carbon Dioxide Level 30 Anion Gap 5 Blood Urea Nitrogen 8 Creatinine 0.63 Est Glomerular Filtrat Rate mL/min Glucose Level 92 Calcium Level 9.4 Total Bilirubin 1.9 H Direct Bilirubin 1.00 H Indirect Bilirubin 0.9 Aspartate Amino Transf (AST/SGOT) 87 H Alanine Aminotransferase (ALT/SGPT) 58 Alkaline Phosphatase 267 H Total Protein 6.5 Albumin 3.1 L Globulin 3.40 H Albumin/Globulin Ratio 0.91 Medications Medication Current Medications Piperacillin Sod/ Tazobactam Sod 100 ml @ 200 mls/hr Q6 IVPB Last administered on 02/06/19at 05:43; Admin Dose 200 MLS/HR; Start 02/05/19 at 06:00 IV Flush (NS 3 ml) 3 ml PER PROTOCOL IV ; Start 02/05/19 at 06:00 Ondansetron HCl (Zofran Inj) 4 mg Q6H PRN IV NAUSEA/VOMITING Last administered on 02/05/19at 08:53; Admin Dose 4 MG; Start 02/05/19 at 06:00 Acetaminophen (Tylenol Tab) 650 mg Q6H PRN PO .PAIN 1-3 OR TEMP; Start 02/05/19 at 06:00 Morphine Sulfate (morphine) 2 mg Q4H PRN IV .SEVERE PAIN 7-10 Last administered on 02/06/19 09:28; Admin Dose 2 MG; Start 02/05/19 at 06:00 Amlodipine Besylate (Norvasc) 10 mg BID PO ; Start 02/05/19 at 21:00 Atorvastatin Calcium (Lipitor) 10 mg QHS PO ; Start 02/05/19 at 21:00 Benazepril HCl (Lotensin) 20 mg BID PO ; Start 02/05/19 at 21:00 Docusate Sodium (Colace) 250 mg DAILY PO ; Start 02/05/19 at 10:00 Metoprolol Succinate (Toprol Xl) 100 mg DAILY PO ; Start 02/05/19 at 10:00 Tamsulosin HCl (Flomax) 0.4 mg DAILY PO ; Start 02/05/19 at 10:00 Pantoprazole 80 mg/Sodium Chloride 100 ml @ 10 mls/hr Q10H IV Last administered on 02/05/19 11:37; Admin Dose 10 MLS/HR; Start 02/05/19 at 09:30 Metoclopramide HCl (Reglan) 5 mg Q6H PRN IV nausea/vomiting; Start 02/05/19 at 09:30 Hydralazine HCl (Apresoline) 10 mg Q6H PRN IV sbp>160; Start 02/05/19 at 09:30 Fish Oil (Fish Oil) 1,000 mg BID PO ; Start 02/05/19 at 11:00 Sodium Chloride 1,000 ml @ 80 mls/hr [id number] IV Last administered on 02/05/19 11:41; Admin Dose 80 MLS/HR; Start 02/05/19 at 10:30 Acetaminophen (Tylenol Supp) 650 mg Q6H PRN [place] FEVER Last administered on 18:28; Admin Dose 650 MG; Start 02/05/19 at 12:30 MENDY WONG Feb 06, 2019 09:33
[2019-02-06] MEDS ORDERED: BARIUM SULF 2% 450 ML BTL (BERRY SMOOTHIE) PO ONE (10:00)
[2019-02-06] MEDS ORDERED: SOD CHLORIDE 0.9% 100 ML ONE (11:01)
[2019-02-06] MEDS ORDERED: IOHEXOL 100 ML ONE (11:01)
[2019-02-06] MEDS: SOD CHLORIDE 0.45% 1,000 ML IV SCH (11:30)
--- NOTE | 2019-02-06 13:53 | PN ---
Date/Time of Note Date/Time of Note DATE: 02/06/19 TIME: 13:40 Assessment/Plan VTE Prophylaxis Risk score (from Ns)>0 risk: 4 SCD applied (from Ns): Yes Pharmacological prophylaxis: NA/contraindicated Pharm contraindication: liver dx Lines/Catheters IV Catheter Type (from [facility]): Peripheral IV Assessment/Plan Hospital Course SUBJECTIVE: Lying in bed, having nausea. Also having right-sided and epigastric abdominal pain OBJECTIVE: Vital signs-see below PHYSICAL EXAM: Constitutional: Elderly [place] female,not in acute distress. HEENT: Head atraumatic and normocephalic. Eyes: Extraocular muscles intact. Anicteric sclerae. Pupils equal bilaterally, reactive to light. NECK: Supple without lymph node. CHEST: Clear and good breath sounds equally. No wheezing. No rhonchi. HEART: S1, S2. Regular rate and rhythm. ABDOMEN:Epigastric/RUL/RLL tenderness. Soft with no rebound tenderness. Bowel sounds hypoactive. EXTREMITIES: No cyanosis, clubbing or edema. NEUROLOGIC: Alert and oriented x3. No focal deficit. No sensory deficit. PSYCHOSOCIAL: No signs of depression. INTEGUMENTARY: No open wounds. ASSESSMENT AND PLAN:84 yo F w/htn,dlp,cholecystectomy,renal stones, lithotripsy here w/ coffee-ground emesis, epigastric/right-sided abdominal pain, and black tarry stoolx 1mos duration, known to have hepatic mass... Hepatic mass -CT also noted for hepatic ductal obstruction with intrahepatic duct dilatation bilaterally, concerning for cholangiocarcinoma -US guided needle biopsy -Left message to hepatobiliary surgeon Dr. Davila and from oncology for case review. -Tumor markers noted. Transaminase elevation with hyperbilirubinemia secondary to above -Follow-up GI recommendations -Per note, there is plan for ERCP with possible stent placement... Abdominal pain with /coffee-ground emesis/tarry stool -Symptoms improving. Mild sigmoid diverticulitis -stable -Bowel rest, IV fluids Anemia -HH stable Hypertension -stable -resume antihypertensives Dyslipidemia -Resume statin Urinary retention -Resume Flomax DVT prophylaxis: SCDs PUD prophylaxis: Protonix CODE STATUS: Full code Diet: N.p.o.except meds Disposition: Follow-up GI/oncology recommendations. Patient was seen in collaboration with Dr. Cruz. Result Diagram: 02/06/19 0610 02/06/19 0610 Results 24hrs Laboratory Tests Test 02/05/19 14:09 02/05/19 16:14 02/06/19 06:10 White Blood Count 13.3 #H 8.4 # Red Blood Count 3.95 L 3.83 L Hemoglobin 11.5 L 11.3 L Hematocrit 35.4 L 34.6 L Mean Corpuscular Volume 89.6 90.3 Mean Corpuscular Hemoglobin 29.1 29.5 Mean Corpuscular Hemoglobin Concent 32.5 32.7 Red Cell Distribution Width 16.6 H 17.0 H Platelet Count 234 234 Mean Platelet Volume 10.7 H 10.7 H Immature Granulocytes % 0.600 H 0.500 H Neutrophils % 91.7 H 75.7 Lymphocytes % 4.4 L 16.5 Monocytes % 3.0 6.9 Eosinophils % 0.0 0.0 Basophils % 0.3 0.4 Nucleated Red Blood Cells % 0.0 0.0 Immature Granulocytes # 0.080 H 0.040 H Neutrophils # 12.2 H 6.4 Lymphocytes # 0.6 L 1.4 Monocytes # 0.4 0.6 Eosinophils # 0.0 0.0 Basophils # 0.0 0.0 Nucleated Red Blood Cells # 0.0 0.0 Lactic Acid Level 1.1 Sodium Level 147 H Potassium Level 3.1 L Chloride Level 112 H Carbon Dioxide Level 30 Anion Gap 5 Blood Urea Nitrogen 8 Creatinine 0.63 Est Glomerular Filtrat Rate mL/min Glucose Level 92 Calcium Level 9.4 Total Bilirubin 1.9 H Direct Bilirubin 1.00 H Indirect Bilirubin 0.9 Aspartate Amino Transf (AST/SGOT) 87 H Alanine Aminotransferase (ALT/SGPT) 58 Alkaline Phosphatase 267 H Total Protein 6.5 Albumin 3.1 L Globulin 3.40 H Albumin/Globulin Ratio 0.91 Alpha Fetoprotein 3.60 Carcinoembryonic Antigen 5.3 H CA 19-9 Antigen > 1000.0 H CA 125 Antigen 31.1 Exam/Review of Systems Exam Vitals Vital Signs Date Temp Pulse Resp B/P (MAP) Pulse Ox O2 O2 Flow FiO2 Time Delivery Rate 02/06/19 Nasal 2.0 08:45 Cannula 02/06/19 98.5 70 18 122/56 98 07:52 (78) Intake and Output 602/05/19 02/06/19 1515:00 23:00 07:00 IntakeIntake Total 150 ml 370 ml BalanceBalance 150 ml 370 ml Results Results 24hrs Laboratory Tests Test 02/05/19 14:09 02/05/19 16:14 02/06/19 06:10 White Blood Count 13.3 #H 8.4 # Red Blood Count 3.95 L 3.83 L Hemoglobin 11.5 L 11.3 L Hematocrit 35.4 L 34.6 L Mean Corpuscular Volume 89.6 90.3 Mean Corpuscular Hemoglobin 29.1 29.5 Mean Corpuscular Hemoglobin Concent 32.5 32.7 Red Cell Distribution Width 16.6 H 17.0 H Platelet Count 234 234 Mean Platelet Volume 10.7 H 10.7 H Immature Granulocytes % 0.600 H 0.500 H Neutrophils % 91.7 H 75.7 Lymphocytes % 4.4 L 16.5 Monocytes % 3.0 6.9 Eosinophils % 0.0 0.0 Basophils % 0.3 0.4 Nucleated Red Blood Cells % 0.0 0.0 Immature Granulocytes # 0.080 H 0.040 H Neutrophils # 12.2 H 6.4 Lymphocytes # 0.6 L 1.4 Monocytes # 0.4 0.6 Eosinophils # 0.0 0.0 Basophils # 0.0 0.0 Nucleated Red Blood Cells # 0.0 0.0 Lactic Acid Level 1.1 Sodium Level 147 H Potassium Level 3.1 L Chloride Level 112 H Carbon Dioxide Level 30 Anion Gap 5 Blood Urea Nitrogen 8 Creatinine 0.63 Est Glomerular Filtrat Rate mL/min Glucose Level 92 Calcium Level 9.4 Total Bilirubin 1.9 H Direct Bilirubin 1.00 H Indirect Bilirubin 0.9 Aspartate Amino Transf (AST/SGOT) 87 H Alanine Aminotransferase (ALT/SGPT) 58 Alkaline Phosphatase 267 H Total Protein 6.5 Albumin 3.1 L Globulin 3.40 H Albumin/Globulin Ratio 0.91 Alpha Fetoprotein 3.60 Carcinoembryonic Antigen 5.3 H CA 19-9 Antigen > 1000.0 H CA 125 Antigen 31.1 Medications Medication Current Medications Piperacillin Sod/ Tazobactam Sod 100 ml @ 200 mls/hr Q6 IVPB Last administered on 02/06/19at 11:58; Admin Dose 200 MLS/HR; Start 02/05/19 at 06:00 IV Flush (NS 3 ml) 3 ml PER PROTOCOL IV ; Start 02/05/19 at 06:00 Ondansetron HCl (Zofran Inj) 4 mg Q6H PRN IV NAUSEA/VOMITING Last administered on 02/05/19at 08:53; Admin Dose 4 MG; Start 02/05/19 at 06:00 Acetaminophen (Tylenol Tab) 650 mg Q6H PRN PO .PAIN 1-3 OR TEMP; Start 02/05/19 at 06:00 Morphine Sulfate (morphine) 2 mg Q4H PRN IV .SEVERE PAIN 7-10 Last administered on 02/06/19at 09:28; Admin Dose 2 MG; Start 02/05/19 at 06:00 Amlodipine Besylate (Norvasc) 10 mg BID PO ; Start 02/05/19 at 21:00 Atorvastatin Calcium (Lipitor) 10 mg QHS PO ; Start 02/05/19 at 21:00 Benazepril HCl (Lotensin) 20 mg BID PO ; Start 02/05/19 at 21:00 Docusate Sodium (Colace) 250 mg DAILY PO ; Start 02/05/19 at 10:00 Metoprolol Succinate (Toprol Xl) 100 mg DAILY PO ; Start 02/05/19 at 10:00 Tamsulosin HCl (Flomax) 0.4 mg DAILY PO ; Start 02/05/19 at 10:00 Pantoprazole 80 mg/Sodium Chloride 100 ml @ 10 mls/hr Q10H IV Last administered on 02/05/19at 11:37; Admin Dose 10 MLS/HR; Start 02/05/19 at 09:30 Metoclopramide HCl (Reglan) 5 mg Q6H PRN IV nausea/vomiting; Start 02/05/19 at 09:30 Hydralazine HCl (Apresoline) 10 mg Q6H PRN IV sbp>160; Start 02/05/19 at 09:30 Fish Oil (Fish Oil) 1,000 mg BID PO ; Start 02/05/19 at 11:00 Sodium Chloride 1,000 ml @ 80 mls/hr [id number] IV Last administered on 02/05/19at 11:41; Admin Dose 80 MLS/HR; Start 02/05/19 at 10:30 Acetaminophen (Tylenol Supp) 650 mg Q6H PRN [place] FEVER Last administered on 02/05/19at 18:28; Admin Dose 650 MG; Start 02/05/19 at 12:30 JENNIE JEAN [facility] Feb 06, 2019 13:50
[2019-02-06] MEDS ORDERED: IOHEXOL 300MG/ML 30 ML BTL ONE (16:12)
--- NOTE | 2019-02-06 17:31 | PREAC ---
Date/Time of Note Date/Time of Note DATE: 02/06/19 TIME: 17:29 Anesthesia Eval and Record Evaluation Time Pre-Procedure Interview DATE: 02/06/19 TIME: 17:29 Age 84 Sex female NPO: 8 hrs Preoperative diagnosis Abdominal Pain and Vomiting and Rectal bleeding Planned procedure ERCP Past Medical History Past Medical History: Includes Cardio: HTN, Dyslipidemia Endo: Other (Hypokalemia) Neuro: Other Renal: Other (Renal Stomes) GI: Other (s/p Cholecystectomy 25 yrs ago) Heme: Anemia Surgery & Anesthesia Issues No known issue Meds Anticoagulation: No Beta Mohinder within 24 hr: No Reason Beta Mohinder not given: Pt. not on B-Mohinder Reported Medications Tamsulosin Hcl* (Flomax*) 0.4 Mg Cap.er.24h, 0.4 MG PO DAILY, CAP 02/05/19 Docusate Sodium* (Dok*) 250 Mg Capsule, 250 MG PO DAILY, #30 CAP 02/05/19 Esomeprazole Mag Trihydrate (Nexium) 40 Mg Capsule.dr, 40 MG PO DAILY, #30 CAP 02/05/19 Potassium Chloride* (K-Dur*) 10 Meq Tab.prt.sr, 10 MEQ PO TID, TAB 02/05/19 Atorvastatin Calcium (Atorvastatin Calcium) 10 Mg Tablet, 10 MG PO QHS, #30 TAB 02/05/19 Aspirin (Low Dose Aspirin) 81 Mg Tablet.dr, 81 MG PO DAILY, #30 TAB 02/05/19 Amlodipine Besylate* (Amlodipine Besylate*) 10 Mg Tablet, 10 MG PO BID, #30 TAB 02/05/19 Metoprolol Succinate* (Toprol XL*) 100 Mg Tab.sr.24h, 100 MG PO DAILY, #30 TAB 02/05/19 Benazepril Hcl* (Benazepril Hcl*) 20 Mg Tablet, 20 MG PO BID, #60 TAB 02/05/19 Current Medications Piperacillin Sod/ Tazobactam Sod 100 ml @ 200 mls/hr Q6 IVPB Last administered on 02/06/19at 11:58; Admin Dose 200 MLS/HR; Start 02/05/19 at 06:00 IV Flush (NS 3 ml) 3 ml PER PROTOCOL IV ; Start 02/05/19 at 06:00 Ondansetron HCl (Zofran Inj) 4 mg Q6H PRN IV NAUSEA/VOMITING Last administered on 02/05/19 08:53; Admin Dose 4 MG; Start 02/05/19 at 06:00 Acetaminophen (Tylenol Tab) 650 mg Q6H PRN PO .PAIN 1-3 OR TEMP; Start 02/05/19 at 06:00 Morphine Sulfate (morphine) 2 mg Q4H PRN IV .SEVERE PAIN 7-10 Last administered on 02/06/19 09:28; Admin Dose 2 MG; Start 02/05/19 at 06:00 Amlodipine Besylate (Norvasc) 10 mg BID PO ; Start 02/05/19 at 21:00 Atorvastatin Calcium (Lipitor) 10 mg QHS PO ; Start 02/05/19 at 21:00 Benazepril HCl (Lotensin) 20 mg BID PO ; Start 02/05/19 at 21:00 Docusate Sodium (Colace) 250 mg DAILY PO ; Start 02/05/19 at 10:00 Metoprolol Succinate (Toprol Xl) 100 mg DAILY PO ; Start 02/05/19 at 10:00 Tamsulosin HCl (Flomax) 0.4 mg DAILY PO ; Start 02/05/19 at 10:00 Pantoprazole 80 mg/Sodium Chloride 100 ml @ 10 mls/hr Q10H IV Last administered on 02/05/19 11:37; Admin Dose 10 MLS/HR; Start 02/05/19 at 09:30 Metoclopramide HCl (Reglan) 5 mg Q6H PRN IV nausea/vomiting; Start 02/05/19 at 09:30 Hydralazine HCl (Apresoline) 10 mg Q6H PRN IV sbp>160; Start 02/05/19 at 09:30 Fish Oil (Fish Oil) 1,000 mg BID PO ; Start 02/05/19 at 11:00 Sodium Chloride 1,000 ml @ 80 mls/hr [id number] IV Last administered on 02/05/19 11:41; Admin Dose 80 MLS/HR; Start 02/05/19 at 10:30 Acetaminophen (Tylenol Supp) 650 mg Q6H PRN [place] FEVER Last administered on 02/05/19 18:28; Admin Dose 650 MG; Start 02/05/19 at 12:30 Meds reviewed: Yes Allergies Coded Allergies: No Known Allergy (Unverified , 02/05/19) Allergies Reviewed: Yes Labs/Studies Labs Reviewed: Reviewed by anesthesiologist Result Diagram: 02/06/19 0610 02/06/19 0610 Laboratory Tests 02/06/19 06:10 test: N/A Studies: ECG (NSR), CXR (No acute abnormality is appreciated. ) Pre-procedure Exam Last vitals Vital Signs Date Temp Pulse Resp B/P (MAP) Pulse Ox O2 O2 Flow FiO2 Time Delivery Rate 02/06/19 98.3 68 18 123/74 96 14:00 (90) 02/06/19 Nasal 2.0 08:45 Cannula Airway: Adequate mouth opening, Adequate thyromental dist Mallampati: Mallampati II Teeth: Normal Lung: Normal Heart: Normal ASA Physical Status ASA physical status: 3 Emergency: None Planned Anesthetic General/MAC: ETT Planned Pain Management Parenteral pain med Pre-operative Attestations Prior to commencing anesthesia and surgery, the patient was re-evaluated, there was verification of: *The patient's identity *The results of appropriate recent lab work and preoperative vital signs *The above evaluation not changing prior to induction *Anesthetic plan, risk benefits, alternative and complications discussed with patient/family; questions answered; patient/family understands, accepts and wishes to proceed. NGOZI CORONA MD Feb 06, 2019 17:31
[2019-02-06] MEDS ORDERED: PROPOFOL 20 ML ONE (17:34)
[2019-02-06] MEDS ORDERED: ROCURONIUM 50 MG INJ ONE (17:34)
[2019-02-06] MEDS ORDERED: FENTAnyl 50 MCG/ML VIAL ONE (17:34)
[2019-02-06] MEDS ORDERED: ONDANSETRON 4 MG INJ IV PRN (18:00)
[2019-02-06] MEDS ORDERED: DIPHENHYDRAMINE 50 MG INJ IV PRN (18:00)
[2019-02-06] MEDS ORDERED: hydrALAzine 20 MG INJ IV PRN (18:00)
[2019-02-06] MEDS ORDERED: METOCLOPRAMIDE 10 MG INJ IV PRN (18:00)
[2019-02-06] MEDS ORDERED: MEPERIDINE 25 MG INJ IV PRN (18:00)
[2019-02-06] MEDS ORDERED: HYDROmorphONE 1 MG/5 ML IV SYRINGE IV PRN ×2 (18:00)
[2019-02-06] MEDS ORDERED: LABETALOL HCL 20MG INJ IV PRN (18:00)
[2019-02-06] MEDS ORDERED: EPHEDrine 25 MG/5 ML SYG IV PRN (18:00)
[2019-02-06] MEDS ORDERED: FENTAnyl 50 MCG/ML VIAL IV PRN ×2 (18:00)
[2019-02-06] MEDS ORDERED: ALBUTEROL 0.083% (NEB) 2.5 MG/3 ML AMP HHN PRN (18:00)
[2019-02-06] MEDS ORDERED: ONDANSETRON 4 MG INJ ONE (18:29)
[2019-02-06] MEDS ORDERED: CEFAZOLIN 1 GM INJ ONE (18:29)
[2019-02-06] MEDS ORDERED: DEXAMETHASONE 4 MG/ML 5 ML INJ ONE (18:30)
[2019-02-06] MEDS ORDERED: METOCLOPRAMIDE 10 MG INJ ONE (18:30)
[2019-02-06] MEDS ORDERED: GLUCAGON 1 MG INJ ONE ×2 (18:31→18:33)
[2019-02-06] MEDS ORDERED: SUGAMMADEX SODIUM 200 MG/2 ML VIAL IV ONE (18:44)
--- NOTE | 2019-02-06 18:57 | PAC ---
Date/Time of Note Date/Time of Note DATE: 02/06/19 TIME: 18:56 Post-Anesthesia Notes Post-Anesthesia Note Last documented vital signs Vital Signs Date Temp Pulse Resp B/P (MAP) Pulse Ox O2 O2 Flow FiO2 Time Delivery Rate 02/06/19 97.9 68 18 123/74 100 face mask 8L 19:00 (90) 02/06/19 Nasal 2.0 08:45 Cannula Activity: WNL Respiratory function: WNL Cardiovascular function: WNL Mental status: Baseline Pain reasonably controlled: Yes Hydration appropriate: Yes Nausea/Vomiting absent: Yes NGOZI CORONA MD Feb 06, 2019 18:57
--- NOTE | 2019-02-06 18:58 | OPPN ---
Date/Time of Note Date/Time of Note DATE: 02/06/19 TIME: 18:53 Proc Note GI Procedure Date 02/06/19 Indication: diagnostic, treatment Pre-procedure Diagnosis Biliary obstruction Post-procedure Diagnosis Impression: High-grade papillary stricture with proximal dilatation. Unsuccessful cannulation. Attempted precut access sphincterotomy resulted in tracking adjacent to the bili tushar tree. Plan: Percutaneous biliary drainage. Percutaneous guided liver biopsy. May consider rendezvous procedure at a later date. Maintain n.p.o until tomorrow and continue antibiotics. Procedure Performed: ERCP (Sphincterotomy) Surgeon RAYNA JASON MD See signature line Piece Dyer none Anesthesia Type: general Anesthesiologist: NGOZI CORONA MD Tourniquet Time none EBL none Transfusion required none Biopsy 1: None Grafts/Implants none Tubes/Drains none Complication(s) none Disposition: PACU Procedure Description After informed consent, with the patient/relatives understanding the procedure, its indications, potential risks and complications, including but not limited to: allergic reaction, bleeding, perforation or infection, and after all pertinent questions were answered to the patients satisfaction, the patient/relatives signed witnessed informed consent. Following this, premedication was administered slowly IV push under careful cardiovascular and respiratory monitoring with pulse oximetry, automatic blood pressure, and switch foreman. Once the sedative effect was achieved the patient was place in the prone position in the radiology special procedures suite; the side viewing panendoscope was introduced and advanced under visual control. Careful examination of the upper gastrointestinal tract, both on insertion as well as withdrawal of the instrument disclosed the following findings: Esophagus: The mucosa of the entire appears within normal limits. There is no evidence of esophagitis, varices, neoplasm or stricture. No Hiatal Hernia identified. Stomach: Upon entrance to the stomach air was insufflated, the gastric cloud distended normally, the mucosa of the fundus, body and antrum of the stomach was carefully examined both head-on and on retroflexion, and shows no abnormalities. There is no evidence of gastritis, ulcers, or neoplasm. Pylorus: The pylorus appears patent and within normal limits, with no evidence of gastric outlet obstruction. Duodenum: The duodenal mucosa was carefully examined in the duodenal bulb as well as the second portion of the duodenum and appears unremarkable with no evidence of duodenitis, ulcer or neoplasm. Ampulla of vater: The ampulla of Vater was identified and carefully examined appearing within normal limits. Cannulation: At this point cannulation was attempted with faint visualization of the distal portion of the common bile duct and an area of high-grade narrowing at the ampullary area. Guidewire assisted cannulation was attempted multiple locations without success. A needle-knife precut access sphincterotomy was also performed but as we advanced the guidewire we found ourselves tracking adjacent but outside of the common bile duct and at this point the procedure was terminated. Pancreatogram: Not obtained Cholangiogram: Incomplete filling. High-grade narrowing at the ampullary area. Unable to obtain deep cannulation despite precut access sphincterotomy The instrument was then withdrawn the patient tolerated the procedure well and was transfer out of the endoscopy suite awake, and in good condition to continue to recover under observation. Copies To: CC: RAYNA JASON MD ; RAYNA JASON MD Feb 06, 2019 18:58
[2019-02-06] MEDS: ATORVASTATIN 10 MG TAB PO SCH (20:32)
[2019-02-07] MEDS: PIPER-TAZO 3.375 GM IV (PMX) 100 ML IVPB SCH ×4 (00:11→19:04)
[2019-02-07] MEDS: morphine 2 MG INJ IV PRN ×4 (01:28→22:08)
[2019-02-07] MEDS: PANTOPRAZOLE IV 80 MG in SOD CHLORIDE 0.9% 100 ML IV SCH ×3 (01:28→21:30)
[2019-02-07 01:40] VITALS: BP 138/61; PULSE 67; RESP 16
[2019-02-07 07:48] VITALS: BP 101/44; PULSE 75; RESP 18
[2019-02-07] MEDS: FISH OIL 1,000 MG CAP PO SCH ×2 (08:35→21:26)
[2019-02-07] MEDS: DOCUSATE SODIUM 250 MG CAP PO SCH (08:35)
[2019-02-07] MEDS: TAMSULOSIN (SR) 0.4 MG CAP PO SCH (08:36)
[2019-02-07] MEDS: AMLODIPINE 10 MG TAB PO SCH ×2 (08:36→21:26)
[2019-02-07] MEDS: METOPROLOL (XL) 100 MG TAB PO SCH (08:36)
[2019-02-07] MEDS: BENAZEPRIL 20 MG TAB PO SCH ×2 (08:36→21:26)
--- NOTE | 2019-02-07 10:30 | PN ---
Date/Time of Note Date/Time of Note DATE: 02/07/19 TIME: 10:26 Assessment/Plan VTE Prophylaxis Risk score (from Ns)>0 risk: 4 SCD applied (from [facility] [place]): Yes Pharmacological prophylaxis: NA/contraindicated Pharm contraindication: low risk/ambulating, liver dx Lines/Catheters [facility] Peripheral IV Assessment/Plan Hospital Course SUBJECTIVE: No acute overnight episodes. OBJECTIVE: Vital signs-see below PHYSICAL EXAM: Constitutional: Elderly [place] female,not in acute distress. HEENT: Head atraumatic and normocephalic. Eyes: Extraocular muscles intact. Anicteric sclerae. Pupils equal bilaterally, reactive to light. NECK: Supple without lymph node. CHEST: Clear and good breath sounds equally. No wheezing. No rhonchi. HEART: S1, S2. Regular rate and rhythm. ABDOMEN:Epigastric/RUL/RLL tenderness. Soft with no rebound tenderness. Bowel sounds hypoactive. EXTREMITIES: No cyanosis, clubbing or edema. NEUROLOGIC: Alert and oriented x3. No focal deficit. No sensory deficit. PSYCHOSOCIAL: No signs of depression. INTEGUMENTARY: No open wounds. ASSESSMENT AND PLAN:84 yo F w/htn,dlp,cholecystectomy,renal stones, lithotripsy here w/ coffee-ground emesis, epigastric/right-sided abdominal pain, and black tarry stoolx 1mos duration, known to have hepatic mass... Hepatic mass W/Biliary obstruction -CT also noted for hepatic ductal obstruction with intrahepatic duct dilatation bilaterally, concerning for cholangiocarcinoma -Plan for Percutaneous guided liver biopsy today -Left message to hepatobiliary surgeon Dr. Davila (available to review case tomorrow, Sunday) and from oncology for case review. -Tumor markers noted. Transaminase elevation with hyperbilirubinemia secondary to above -Attempted ERCP 02/06/2019, unsuccessful. Plan is Percutaneous biliary drainage. Abdominal pain with /coffee-ground emesis/tarry stool -Symptoms improving. Mild sigmoid diverticulitis -stable -Bowel rest, IV fluids Anemia -HH stable Hypertension -stable -resume antihypertensives Dyslipidemia -on statin Urinary retention -on Flomax DVT prophylaxis: SCDs PUD prophylaxis: Protonix CODE STATUS: Full code Diet: N.p.o.except meds Disposition: Follow-up GI/oncology/HBS recommendations. Patient was seen in collaboration with Dr. Cruz. Result Diagram: 02/07/19 0734 02/07/19 0734 Results 24hrs Laboratory Tests Test 02/07/19 07:34 White Blood Count 7.9 Red Blood Count 3.93 L Hemoglobin 11.5 L Hematocrit 35.9 L Mean Corpuscular Volume 91.3 Mean Corpuscular Hemoglobin 29.3 Mean Corpuscular Hemoglobin Concent 32.0 Red Cell Distribution Width 16.8 H Platelet Count 273 Mean Platelet Volume 10.8 H Immature Granulocytes % 0.800 H Neutrophils % 87.9 H Lymphocytes % 8.4 L Monocytes % 2.8 Eosinophils % 0.0 Basophils % 0.1 Nucleated Red Blood Cells % 0.0 Immature Granulocytes # 0.060 H Neutrophils # 7.0 Lymphocytes # 0.7 L Monocytes # 0.2 L Eosinophils # 0.0 Basophils # 0.0 Nucleated Red Blood Cells # 0.0 Sodium Level 152 H Potassium Level 3.2 L Chloride Level 113 H Carbon Dioxide Level 23 Anion Gap 16 #H Blood Urea Nitrogen 15 Creatinine 0.77 Est Glomerular Filtrat Rate mL/min Glucose Level 137 # Calcium Level 10.2 Total Bilirubin 3.4 H Direct Bilirubin 2.80 #H Indirect Bilirubin 0.6 Aspartate Amino Transf (AST/SGOT) 139 H Alanine Aminotransferase (ALT/SGPT) 64 Alkaline Phosphatase 364 H Total Protein 6.5 Albumin 3.3 Globulin 3.20 Albumin/Globulin Ratio 1.03 Exam/Review of Systems Exam Vitals Vital Signs Date Temp Pulse Resp B/P (MAP) Pulse Ox O2 O2 Flow FiO2 Time Delivery Rate 02/07/19 98.1 75 18 101/44 95 Nasal 07:48 (63) Cannula 02/07/19 2.0 05:40 Intake and Output 02/06/19 02/06/19 02/07/19 1515:00 23:00 07:00 IntakeIntake Total 1040 ml BalanceBalance 1040 ml Results Results 24hrs Laboratory Tests Test 02/07/19 07:34 White Blood Count 7.9 Red Blood Count 3.93 L Hemoglobin 11.5 L Hematocrit 35.9 L Mean Corpuscular Volume 91.3 Mean Corpuscular Hemoglobin 29.3 Mean Corpuscular Hemoglobin Concent 32.0 Red Cell Distribution Width 16.8 H Platelet Count 273 Mean Platelet Volume 10.8 H Immature Granulocytes % 0.800 H Neutrophils % 87.9 H Lymphocytes % 8.4 L Monocytes % 2.8 Eosinophils % 0.0 Basophils % 0.1 Nucleated Red Blood Cells % 0.0 Immature Granulocytes # 0.060 H Neutrophils # 7.0 Lymphocytes # 0.7 L Monocytes # 0.2 L Eosinophils # 0.0 Basophils # 0.0 Nucleated Red Blood Cells # 0.0 Sodium Level 152 H Potassium Level 3.2 L Chloride Level 113 H Carbon Dioxide Level 23 Anion Gap 16 #H Blood Urea Nitrogen 15 Creatinine 0.77 Est Glomerular Filtrat Rate mL/min Glucose Level 137 # Calcium Level 10.2 Total Bilirubin 3.4 H Direct Bilirubin 2.80 #H Indirect Bilirubin 0.6 Aspartate Amino Transf (AST/SGOT) 139 H Alanine Aminotransferase (ALT/SGPT) 64 Alkaline Phosphatase 364 H Total Protein 6.5 Albumin 3.3 Globulin 3.20 Albumin/Globulin Ratio 1.03 Medications Medication Current Medications Piperacillin Sod/ Tazobactam Sod 100 ml @ 200 mls/hr Q6 IVPB Last administered on 02/07/19at 05:33; Admin Dose 200 MLS/HR; Start 02/05/19 at 06:00 IV Flush (NS 3 ml) 3 ml PER PROTOCOL IV ; Start 02/05/19 at 06:00 Ondansetron HCl (Zofran Inj) 4 mg Q6H PRN IV NAUSEA/VOMITING Last administered on 02/05/19at 08:53; Admin Dose 4 MG; Start 02/05/19 at 06:00 Acetaminophen (Tylenol Tab) 650 mg Q6H PRN PO .PAIN 1-3 OR TEMP; Start 02/05/19 at 06:00 Morphine Sulfate (morphine) 2 mg Q4H PRN IV .SEVERE PAIN 7-10 Last administered on 02/07/19at 08:37; Admin Dose 2 MG; Start 02/05/19 at 06:00 Amlodipine Besylate (Norvasc) 10 mg BID PO ; Start 02/05/19 at 21:00 Atorvastatin Calcium (Lipitor) 10 mg QHS PO ; Start 02/05/19 at 21:00 Benazepril HCl (Lotensin) 20 mg BID PO ; Start 02/05/19 at 21:00 Docusate Sodium (Colace) 250 mg DAILY PO ; Start 02/05/19 at 10:00 Metoprolol Succinate (Toprol Xl) 100 mg DAILY PO ; Start 02/05/19 at 10:00 Tamsulosin HCl (Flomax) 0.4 mg DAILY PO ; Start 02/05/19 at 10:00 Pantoprazole 80 mg/Sodium Chloride 100 ml @ 10 mls/hr Q10H IV Last administered on 02/07/19at 01:28; Admin Dose 10 MLS/HR; Start 02/05/19 at 09:30 Metoclopramide HCl (Reglan) 5 mg Q6H PRN IV nausea/vomiting; Start 02/05/19 at 09:30 Hydralazine HCl (Apresoline) 10 mg Q6H PRN IV sbp>160; Start 02/05/19 at 09:30 Fish Oil (Fish Oil) 1,000 mg BID PO ; Start 02/05/19 at 11:00 Sodium Chloride 1,000 ml @ 80 mls/hr [id number] IV Last administered on 02/05/19at 11:41; Admin Dose 80 MLS/HR; Start 02/05/19 at 10:30 Acetaminophen (Tylenol Supp) 650 mg Q6H PRN [place] FEVER Last administered on 02/05/19at 18:28; Admin Dose 650 MG; Start 02/05/19 at 12:30 JENNIE JEAN BAPTISTE NP Feb 07, 2019 10:30
--- NOTE | 2019-02-07 11:04 | CONS ---
Assessment/Plan Assessment/Plan Hospital Course (Demo Recall) #Liver mass #Biliary obstruction - s/p unsuccessful cannulation attempt #HTN #Hyperlipidemia -follow up liver biopsy. There is a very high chance of malignancy especially given the elevated CA 19-9>1000 -agree with percutaneous biliary drainage. bili currently at 2.8 -f/u Dr. Davila consul to see if patient is a surgical candidate. If not we would consider neoadjuvant chemotherapy based on the biopsy results -continue current management of HTN, and HL per the primary team Thank you for the opportunity to participate in this patients care A total of 40 minutes of face to face time was spent speaking with the patient, of which greater than 50% was spent in counseling and coordination of care and the detailed question and answer session. Consultation Date/Type/Reason Admit Date/Time Feb 05, 2019 at 05:27 Date of Consultation: Feb 07, 2019 Type of Consult oncology Reason for Consultation liver mass Requesting Provider: JENNIE JEAN BAPTISTE NP Date/Time of Note DATE: 02/07/19 TIME: 10:46 Hx of Present Illness 84 yo female with multiple medical problems including HTN, Hyperlipidemia, kidney stones s/p lithotripsy, urinary retention, who presents to ER on February 05 with coffee ground emesis and abdominal pain. Pt also endorsed 10 lb weight loss in addition to nausea and vomiting. PT was noted to have anemia with a HG drop to 11.3 as well as hypokalemia with a K 2.9. 02/05 MRI with contrast revealed a cystic versus centrally necrotic 4.2 cm lesion is seen centrally within the liver, as described above, concerning for neoplasm. Lesion causes biliary obstruction centrally, with severe dilatation of intrahepatic biliary ducts in the left lobe. 02/06/19 CT A/P reveals a 4.6 x 3.9 x 3.5 cm necrotic mass central liver with peripheral enhancement extending into the subhash hepatis with obstruction of the central right and left hepatic ducts and resultant moderate left intrahepatic ductal dilatation and mild to moderate right intrahepatic ductal dilatation. Obstruction left portal vein. A tiny cystic mass in pancreatic head is also noted. 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 Unsuccessful cannulation 02/06/19 CA 19-9> 1000 Pt is scheduled for a liver biopsy today Constitutional: poor po Eyes: no complaints ENT: no complaints Respiratory: pain Cardiovascular: lightheadedness Gastrointestinal: pain, decreased appetite, nausea, passing stool Genitourinary: no complaints Musculoskeletal: bone/joint pain Skin: no complaints Neurologic: no complaints Past Medical History HTN Hyperlipidemia kidney stones s/p lithotripsy urinary retention, Home Meds Reported Medications Tamsulosin Hcl* (Flomax*) 0.4 Mg Cap.er.24h, 0.4 MG PO DAILY, CAP 02/05/19 Docusate Sodium* (Dok*) 250 Mg Capsule, 250 MG PO DAILY, #30 CAP 02/05/19 Esomeprazole Mag Trihydrate (Nexium) 40 Mg Capsule.dr, 40 MG PO DAILY, #30 CAP 02/05/19 Potassium Chloride* (K-Dur*) 10 Meq Tab.prt.sr, 10 MEQ PO TID, TAB 02/05/19 Atorvastatin Calcium (Atorvastatin Calcium) 10 Mg Tablet, 10 MG PO QHS, #30 TAB 02/05/19 Aspirin (Low Dose Aspirin) 81 Mg Tablet.dr, 81 MG PO DAILY, #30 TAB 02/05/19 Amlodipine Besylate* (Amlodipine Besylate*) 10 Mg Tablet, 10 MG PO BID, #30 TAB 02/05/19 Metoprolol Succinate* (Toprol XL*) 100 Mg Tab.sr.24h, 100 MG PO DAILY, #30 TAB 02/05/19 Benazepril Hcl* (Benazepril Hcl*) 20 Mg Tablet, 20 MG PO BID, #60 TAB 02/05/19 Medications Current Medications Piperacillin Sod/ Tazobactam Sod 100 ml @ 200 mls/hr Q6 IVPB Last administered on 02/07/19at 05:33; Admin Dose 200 MLS/HR; Start 02/05/19 at 06:00 IV Flush (NS 3 ml) 3 ml PER PROTOCOL IV ; Start 02/05/19 at 06:00 Ondansetron HCl (Zofran Inj) 4 mg Q6H PRN IV NAUSEA/VOMITING Last administered on 02/05/19at 08:53; Admin Dose 4 MG; Start 02/05/19 at 06:00 Acetaminophen (Tylenol Tab) 650 mg Q6H PRN PO .PAIN 1-3 OR TEMP; Start 02/05/19 at 06:00 Morphine Sulfate (morphine) 2 mg Q4H PRN IV .SEVERE PAIN 7-10 Last administered on 02/07/19at 08:37; Admin Dose 2 MG; Start 02/05/19 at 06:00 Amlodipine Besylate (Norvasc) 10 mg BID PO ; Start 02/05/19 at 21:00 Atorvastatin Calcium (Lipitor) 10 mg QHS PO ; Start 02/05/19 at 21:00 Benazepril HCl (Lotensin) 20 mg BID PO ; Start 02/05/19 at 21:00 Docusate Sodium (Colace) 250 mg DAILY PO ; Start 02/05/19 at 10:00 Metoprolol Succinate (Toprol Xl) 100 mg DAILY PO ; Start 02/05/19 at 10:00 Tamsulosin HCl (Flomax) 0.4 mg DAILY PO ; Start 02/05/19 at 10:00 Pantoprazole 80 mg/Sodium Chloride 100 ml @ 10 mls/hr Q10H IV Last administered on 02/07/19at 01:28; Admin Dose 10 MLS/HR; Start 02/05/19 at 09:30 Metoclopramide HCl (Reglan) 5 mg Q6H PRN IV nausea/vomiting; Start 02/05/19 at 09:30 Hydralazine HCl (Apresoline) 10 mg Q6H PRN IV sbp>160; Start 02/05/19 at 09:30 Fish Oil (Fish Oil) 1,000 mg BID PO ; Start 02/05/19 at 11:00 Sodium Chloride 1,000 ml @ 80 mls/hr [id number] IV Last administered on 02/05/19at 11:41; Admin Dose 80 MLS/HR; Start 02/05/19 at 10:30 Acetaminophen (Tylenol Supp) 650 mg Q6H PRN [place] FEVER Last administered on 02/05/19at 18:28; Admin Dose 650 MG; Start 02/05/19 at 12:30 Allergies: Coded Allergies: No Known Allergy (Unverified , 02/05/19) Past Surgical History Past Surgical Hx: no surgical history Family History Significant Family History: no pertinent family hx Social History Alcohol Use: none Smoking Status: Never smoker Drug Use: none Exam/Review of Systems Exam Vitals Vital Signs Date Temp Pulse Resp B/P (MAP) Pulse Ox O2 O2 Flow FiO2 Time Delivery Rate 02/07/19 98.1 75 18 101/44 95 Nasal 07:48 (63) Cannula 02/07/19 2.0 05:40 Intake and Output 02/06/19 02/06/19 02/07/19 1515:00 23:00 07:00 IntakeIntake Total 1040 ml BalanceBalance 1040 ml Constitutional: alert, oriented Psych: no complaints Head: normocephalic Eyes: nl conjunctiva ENMT: nl external ears & nose Neck: supple Respiratory: clear to auscultation Cardiovascular: regular rate and rhythm Gastrointestinal: soft Musculoskeletal: nl extremities to inspection Results Result Diagram: 02/07/19 0734 02/07/19 0734 Results 24hrs Laboratory Tests Test 02/07/19 07:34 White Blood Count 7.9 Red Blood Count 3.93 L Hemoglobin 11.5 L Hematocrit 35.9 L Mean Corpuscular Volume 91.3 Mean Corpuscular Hemoglobin 29.3 Mean Corpuscular Hemoglobin Concent 32.0 Red Cell Distribution Width 16.8 H Platelet Count 273 Mean Platelet Volume 10.8 H Immature Granulocytes % 0.800 H Neutrophils % 87.9 H Lymphocytes % 8.4 L Monocytes % 2.8 Eosinophils % 0.0 Basophils % 0.1 Nucleated Red Blood Cells % 0.0 Immature Granulocytes # 0.060 H Neutrophils # 7.0 Lymphocytes # 0.7 L Monocytes # 0.2 L Eosinophils # 0.0 Basophils # 0.0 Nucleated Red Blood Cells # 0.0 Sodium Level 152 H Potassium Level 3.2 L Chloride Level 113 H Carbon Dioxide Level 23 Anion Gap 16 #H Blood Urea Nitrogen 15 Creatinine 0.77 Est Glomerular Filtrat Rate mL/min Glucose Level 137 # Calcium Level 10.2 Total Bilirubin 3.4 H Direct Bilirubin 2.80 #H Indirect Bilirubin 0.6 Aspartate Amino Transf (AST/SGOT) 139 H Alanine Aminotransferase (ALT/SGPT) 64 Alkaline Phosphatase 364 H Total Protein 6.5 Albumin 3.3 Globulin 3.20 Albumin/Globulin Ratio 1.03 Medications Medication Current Medications Piperacillin Sod/ Tazobactam Sod 100 ml @ 200 mls/hr Q6 IVPB Last administered on 02/07/19at 05:33; Admin Dose 200 MLS/HR; Start 02/05/19 at 06:00 IV Flush (NS 3 ml) 3 ml PER PROTOCOL IV ; Start 02/05/19 at 06:00 Ondansetron HCl (Zofran Inj) 4 mg Q6H PRN IV NAUSEA/VOMITING Last administered on 02/05/19 08:53; Admin Dose 4 MG; Start 02/05/19 at 06:00 Acetaminophen (Tylenol Tab) 650 mg Q6H PRN PO .PAIN 1-3 OR TEMP; Start 02/05/19 at 06:00 Morphine Sulfate (morphine) 2 mg Q4H PRN IV .SEVERE PAIN 7-10 Last administered on 02/07/19 08:37; Admin Dose 2 MG; Start 02/05/19 at 06:00 Amlodipine Besylate (Norvasc) 10 mg BID PO ; Start 02/05/19 at 21:00 Atorvastatin Calcium (Lipitor) 10 mg QHS PO ; Start 02/05/19 at 21:00 Benazepril HCl (Lotensin) 20 mg BID PO ; Start 02/05/19 at 21:00 Docusate Sodium (Colace) 250 mg DAILY PO ; Start 02/05/19 at 10:00 Metoprolol Succinate (Toprol Xl) 100 mg DAILY PO ; Start 02/05/19 at 10:00 Tamsulosin HCl (Flomax) 0.4 mg DAILY PO ; Start 02/05/19 at 10:00 Pantoprazole 80 mg/Sodium Chloride 100 ml @ 10 mls/hr Q10H IV Last administered on 02/07/19 01:28; Admin Dose 10 MLS/HR; Start 02/05/19 at 09:30 Metoclopramide HCl (Reglan) 5 mg Q6H PRN IV nausea/vomiting; Start 02/05/19 at 09:30 Hydralazine HCl (Apresoline) 10 mg Q6H PRN IV sbp>160; Start 02/05/19 at 09:30 Fish Oil (Fish Oil) 1,000 mg BID PO ; Start 02/05/19 at 11:00 Sodium Chloride 1,000 ml @ 80 mls/hr [id number] IV Last administered on 02/05/19 11:41; Admin Dose 80 MLS/HR; Start 02/05/19 at 10:30 Acetaminophen (Tylenol Supp) 650 mg Q6H PRN [place] FEVER Last administered on 02/05/19at 18:28; Admin Dose 650 MG; Start 02/05/19 at 12:30 MARK FORREST M.D. 21, 2019 11:00
[2019-02-07] MEDS: ONDANSETRON 4 MG INJ IV PRN (12:36)
[2019-02-07] MEDS: SOD CHLORIDE 0.45% 1,000 ML IV SCH ×2 (13:00)
[2019-02-07] MEDS ORDERED: IOHEXOL 0 ML ONE (14:04)
[2019-02-07] MEDS ORDERED: SOD CHLORIDE 0.9% 500 ML ONE (14:05)
[2019-02-07] MEDS ORDERED: LIDOCAINE 1% (MDV) 20 ML INJ ONE (14:05)
[2019-02-07] MEDS ORDERED: FENTAnyl 50 MCG/ML VIAL ONE (14:08)
[2019-02-07] MEDS ORDERED: MIDAZOLAM 1 MG/ML 2 ML INJ ONE (14:09)
[2019-02-07 16:06] VITALS: BP 140/64; PULSE 78; RESP 18
[2019-02-07] MEDS: METOCLOPRAMIDE 10 MG INJ IV SCH (18:30)
--- NOTE | 2019-02-07 18:32 | PN ---
Date/Time of Note Date/Time of Note DATE: 02/07/19 TIME: 17:55 Assessment/Plan VTE Prophylaxis Risk score (from Ns)>0 risk: 4 SCD applied (from Ns): Yes Pharmacological prophylaxis: NA/contraindicated Pharm contraindication: bleeding Lines/Catheters IV Catheter Type (from [facility]): Peripheral IV Assessment/Plan Assessment/Plan Assessment: Hepatic mass -MRI- Peripherally enhancing, cystic versus centrally necrotic 4.2 cm lesion is seen centrally within the liver, concerning for neoplasm. That is post ERCP 02/06/2019 High-grade papillary stricture with proximal dilatation. Unsuccessful cannulation. Attempted precut access sphincterotomy resulted in tracking adjacent to the biliary tree. Reported coffee-ground emesis/melena Normocytic anemia Transaminitis with direct hyperbilirubinemia Epigastric/RUQ pain Fevers- resolved Sigmoid diverticulitis, mild Hypokalemia-replaced History of cholecystectomy History of Renal stone -S/p lithotripsy Hypertension Dyslipidemia Urinary retention Plan: Continue Protonix drip. Clear liquid diet Start daily MiraLAX Start Reglan every 6 10 mg IV Percutaneous guided liver biopsy. May consider rendezvous procedure at a later date. Maintain n.p.o until tomorrow and continue antibiotics Continue PPI drip- continue for now- if HGB stable will change to BID in am Patient seen in collaboration with Dr. Nieves Subjective: Course reviewed with nursing staff Patient interviewed and examined All labs, imaging and other results reviewed The patient is complaining of right-sided pain at the site of biliary drain placement. Liver biopsy scheduled for tomorrow. Patient states she has been constipated for 10 days. Complaining of mild nausea. Asking to start the diet. Discussed results of ERCP. We will start on clear liquid diet. Patient is currently on Protonix drip. No evidence of overt GI bleeding. Hemoglobin is stable. We will switch to p.o. Protonix tomorrow. Continue present regimen. PHYSICAL EXAMINATION: GENERAL: Alert & oriented x 3, jaundice SKIN: No lesions. HEAD: Normocephalic, atraumatic, no tenderness. EYES: Pupils equal reactive to light and accommodation, icteric sclera no discharge. EARS/NOSE AND THROAT: Ears normal, nose normal. NECK: Supple, no masses. CHEST: Inspection within normal limits. CARDIOVASCULAR: Heart: Regular rate and rhythm RESPIRATORY: Lungs clear to auscultation GASTROINTESTINAL AND LIVER: Abdomen: Soft, epigastric and right-sided pain, non- distended, no hernias, no ascites, no guarding, no rebound tenderness, normoactive bowel sounds. Rectal: Deferred. EXTREMITIES: No cyanosis, clubbing or edema. Result Diagram: 02/07/19 0734 02/07/19 0734 Results 24hrs Laboratory Tests Test 02/07/19 07:34 White Blood Count 7.9 Red Blood Count 3.93 L Hemoglobin 11.5 L Hematocrit 35.9 L Mean Corpuscular Volume 91.3 Mean Corpuscular Hemoglobin 29.3 Mean Corpuscular Hemoglobin Concent 32.0 Red Cell Distribution Width 16.8 H Platelet Count 273 Mean Platelet Volume 10.8 H Immature Granulocytes % 0.800 H Neutrophils % 87.9 H Lymphocytes % 8.4 L Monocytes % 2.8 Eosinophils % 0.0 Basophils % 0.1 Nucleated Red Blood Cells % 0.0 Immature Granulocytes # 0.060 H Neutrophils # 7.0 Lymphocytes # 0.7 L Monocytes # 0.2 L Eosinophils # 0.0 Basophils # 0.0 Nucleated Red Blood Cells # 0.0 Sodium Level 152 H Potassium Level 3.2 L Chloride Level 113 H Carbon Dioxide Level 23 Anion Gap 16 #H Blood Urea Nitrogen 15 Creatinine 0.77 Est Glomerular Filtrat Rate mL/min Glucose Level 137 # Calcium Level 10.2 Total Bilirubin 3.4 H Direct Bilirubin 2.80 #H Indirect Bilirubin 0.6 Aspartate Amino Transf (AST/SGOT) 139 H Alanine Aminotransferase (ALT/SGPT) 64 Alkaline Phosphatase 364 H Total Protein 6.5 Albumin 3.3 Globulin 3.20 Albumin/Globulin Ratio 1.03 CC: RAYNA NIEVES MD ; Exam/Review of Systems Exam Vitals Vital Signs Date Temp Pulse Resp B/P (MAP) Pulse Ox O2 O2 Flow FiO2 Time Delivery Rate 02/07/19 97.7 78 18 140/64 94 Nasal 16:06 (89) Cannula 02/07/19 2.0 08:45 Intake and Output 02/06/19 02/06/19 02/07/19 1515:00 23:00 07:00 IntakeIntake Total 1040 ml BalanceBalance 1040 ml Results Results 24hrs Laboratory Tests Test 02/07/19 07:34 White Blood Count 7.9 Red Blood Count 3.93 L Hemoglobin 11.5 L Hematocrit 35.9 L Mean Corpuscular Volume 91.3 Mean Corpuscular Hemoglobin 29.3 Mean Corpuscular Hemoglobin Concent 32.0 Red Cell Distribution Width 16.8 H Platelet Count 273 Mean Platelet Volume 10.8 H Immature Granulocytes % 0.800 H Neutrophils % 87.9 H Lymphocytes % 8.4 L Monocytes % 2.8 Eosinophils % 0.0 Basophils % 0.1 Nucleated Red Blood Cells % 0.0 Immature Granulocytes # 0.060 H Neutrophils # 7.0 Lymphocytes # 0.7 L Monocytes # 0.2 L Eosinophils # 0.0 Basophils # 0.0 Nucleated Red Blood Cells # 0.0 Sodium Level 152 H Potassium Level 3.2 L Chloride Level 113 H Carbon Dioxide Level 23 Anion Gap 16 #H Blood Urea Nitrogen 15 Creatinine 0.77 Est Glomerular Filtrat Rate mL/min Glucose Level 137 # Calcium Level 10.2 Total Bilirubin 3.4 H Direct Bilirubin 2.80 #H Indirect Bilirubin 0.6 Aspartate Amino Transf (AST/SGOT) 139 H Alanine Aminotransferase (ALT/SGPT) 64 Alkaline Phosphatase 364 H Total Protein 6.5 Albumin 3.3 Globulin 3.20 Albumin/Globulin Ratio 1.03 Medications Medication Current Medications Piperacillin Sod/ Tazobactam Sod 100 ml @ 200 mls/hr Q6 IVPB Last administered on 02/07/19at 11:47; Admin Dose 200 MLS/HR; Start 02/05/19 at 06:00 IV Flush (NS 3 ml) 3 ml PER PROTOCOL IV ; Start 02/05/19 at 06:00 Ondansetron HCl (Zofran Inj) 4 mg Q6H PRN IV NAUSEA/VOMITING Last administered on 02/07/19at 12:36; Admin Dose 4 MG; Start 02/05/19 at 06:00 Acetaminophen (Tylenol Tab) 650 mg Q6H PRN PO .PAIN 1-3 OR TEMP; Start 02/05/19 at 06:00 Morphine Sulfate (morphine) 2 mg Q4H PRN IV .SEVERE PAIN 7-10 Last administered on 02/07/19at 17:51; Admin Dose 2 MG; Start 02/05/19 at 06:00 Amlodipine Besylate (Norvasc) 10 mg BID PO ; Start 02/05/19 at 21:00 Atorvastatin Calcium (Lipitor) 10 mg QHS PO ; Start 02/05/19 at 21:00 Benazepril HCl (Lotensin) 20 mg BID PO ; Start 02/05/19 at 21:00 Docusate Sodium (Colace) 250 mg DAILY PO ; Start 02/05/19 at 10:00 Metoprolol Succinate (Toprol Xl) 100 mg DAILY PO ; Start 02/05/19 at 10:00 Tamsulosin HCl (Flomax) 0.4 mg DAILY PO ; Start 02/05/19 at 10:00 Pantoprazole 80 mg/Sodium Chloride 100 ml @ 10 mls/hr Q10H IV Last administered on 02/07/19at 12:36; Admin Dose 10 MLS/HR; Start 02/05/19 at 09:30 Metoclopramide HCl (Reglan) 5 mg Q6H PRN IV nausea/vomiting; Start 02/05/19 at 09:30 Hydralazine HCl (Apresoline) 10 mg Q6H PRN IV sbp>160; Start 02/05/19 at 09:30 Fish Oil (Fish Oil) 1,000 mg BID PO ; Start 02/05/19 at 11:00 Sodium Chloride 1,000 ml @ 80 mls/hr [id number] IV Last administered on 02/07/19at 13:00; Admin Dose 80 MLS/HR; Start 02/05/19 at 10:30 Acetaminophen (Tylenol Supp) 650 mg Q6H PRN [place] FEVER Last administered on 02/05/19at 18:28; Admin Dose 650 MG; Start 02/05/19 at 12:30 WYATT SCHAFFER NP Feb 07, 2019 18:05
[2019-02-07 20:18] VITALS: BP 132/59; PULSE 77; RESP 18
[2019-02-07] MEDS: ATORVASTATIN 10 MG TAB PO SCH (21:26)
[2019-02-08] MEDS: SOD CHLORIDE 0.45% 1,000 ML IV SCH ×2 (01:00→06:55)
[2019-02-08] MEDS: PIPER-TAZO 3.375 GM IV (PMX) 100 ML IVPB SCH ×5 (01:03→23:49)
[2019-02-08] MEDS: METOCLOPRAMIDE 10 MG INJ IV SCH ×5 (01:04→23:47)
[2019-02-08 02:00] VITALS: BP 111/57; PULSE 93; RESP 18
[2019-02-08] MEDS: morphine 2 MG INJ IV PRN ×6 (02:35→23:48)
[2019-02-08] MEDS: PANTOPRAZOLE IV 80 MG in SOD CHLORIDE 0.9% 100 ML IV SCH (02:57)
[2019-02-08] MEDS: BENAZEPRIL 20 MG TAB PO SCH ×2 (09:00→21:02)
[2019-02-08] MEDS: AMLODIPINE 10 MG TAB PO SCH ×2 (09:00→21:03)
[2019-02-08] MEDS: METOPROLOL (XL) 100 MG TAB PO SCH (09:00)
[2019-02-08] MEDS ORDERED: POLYETHYLENE GLYCOL 17 GM PACKET PO SCH (09:00)
[2019-02-08] MEDS: TAMSULOSIN (SR) 0.4 MG CAP PO SCH (09:00)
[2019-02-08] MEDS: FISH OIL 1,000 MG CAP PO SCH ×2 (09:00→21:03)
[2019-02-08] MEDS: DOCUSATE SODIUM 250 MG CAP PO SCH (09:00)
[2019-02-08 09:02] VITALS: BP 116/58; PULSE 86; RESP 18
[2019-02-08] MEDS: ONDANSETRON 4 MG INJ IV PRN ×2 (10:55→15:36)
--- NOTE | 2019-02-08 12:17 | PN ---
Date/Time of Note Date/Time of Note DATE: 02/08/19 TIME: 11:58 Assessment/Plan VTE Prophylaxis Risk score (from Ns)>0 risk: 3 SCD applied (from Ns): Yes Pharmacological prophylaxis: other (scds) Lines/Catheters IV [facility] (from [facility]): Peripheral IV Assessment/Plan Hospital Course Assessment: Hepatic mass AFP: 3.60 CEA: 5.3 CA 199: >1000 Ca125: 31.1 MRI- Peripherally enhancing, cystic versus centrally necrotic 4.2 cm lesion is seen centrally within the liver, concerning for neoplasm. ERCP 02/06/2019 High-grade papillary stricture with proximal dilatation. Unsuccessful cannulation. Attempted precut access sphincterotomy resulted in tracking adjacent to the biliary tree. Reported coffee-ground emesis/melena- resolved Normocytic anemia Transaminitis - trending down Direct hyperbilirubinemia- resolved Epigastric/RUQ pain Fevers- resolved Sigmoid diverticulitis, mild Hypokalemia-replaced History of cholecystectomy History of Renal stone -S/p lithotripsy Hypertension Dyslipidemia Urinary retention Plan: F/u oncology recommendations F/u Dr. Davila consul to see if patient is a surgical candidate. Full liquid diet advance as tolerated Liver bx- pending May consider rendezvous procedure at a later date. Continue PPI drip- continue for now- if HGB stable will change to BID in am Patient seen in collaboration with Dr. Nieves Subjective: Course reviewed with nursing staff Patient interviewed and examined All labs, imaging and other results reviewed Patient resting in bed, drain to RUQ, Pt continues to c/o RUQ pain unchanged since admission. Family at bedside., No over night since. She is currently tolerating clear liquid diet well without nausea/vomiting PHYSICAL EXAMINATION: GENERAL: Alert & oriented x 3, jaundice SKIN: No lesions. HEAD: Normocephalic, atraumatic, no tenderness. EYES: Pupils equal reactive to light and accommodation, icteric sclera no discharge. EARS/NOSE AND THROAT: Ears normal, nose normal. NECK: Supple, no masses. CHEST: Inspection within normal limits. CARDIOVASCULAR: Heart: Regular rate and rhythm RESPIRATORY: Lungs clear to auscultation GASTROINTESTINAL AND LIVER: Abdomen: Soft, epigastric and right-sided pain, non- distended, no hernias, no ascites, no guarding, no rebound tenderness, normoactive bowel sounds. Rectal: Deferred. EXTREMITIES: No cyanosis, clubbing or edema. Result Diagram: 02/08/19 0633 02/08/19 0633 Results 24hrs Laboratory Tests Test 02/08/19 06:33 White Blood Count 14.5 #H Red Blood Count 3.87 L Hemoglobin 11.3 L Hematocrit 35.0 L Mean Corpuscular Volume 90.4 Mean Corpuscular Hemoglobin 29.2 Mean Corpuscular Hemoglobin Concent 32.3 Red Cell Distribution Width 17.6 H Platelet Count 275 Mean Platelet Volume 10.5 H Immature Granulocytes % 0.700 H Neutrophils % 84.5 H Lymphocytes % 7.9 L Monocytes % 6.8 Eosinophils % 0.0 Basophils % 0.1 Nucleated Red Blood Cells % 0.0 Immature Granulocytes # 0.100 H Neutrophils # 12.2 H Lymphocytes # 1.1 Monocytes # 1.0 H Eosinophils # 0.0 Basophils # 0.0 Nucleated Red Blood Cells # 0.0 Sodium Level 147 H Potassium Level 3.0 L Chloride Level 112 H Carbon Dioxide Level 28 Anion Gap 7 # Blood Urea Nitrogen 19 Creatinine 0.70 Est Glomerular Filtrat Rate mL/min Glucose Level 107 Calcium Level 9.6 Total Bilirubin 0.9 # Direct Bilirubin 0.10 # Indirect Bilirubin 0.8 Aspartate Amino Transf (AST/SGOT) 78 H Alanine Aminotransferase (ALT/SGPT) 52 Alkaline Phosphatase 297 H Total Protein 6.3 Albumin 3.1 L Globulin 3.20 Albumin/Globulin Ratio 0.96 Exam/Review of Systems Exam Vitals Vital Signs Date Temp Pulse Resp B/P (MAP) Pulse Ox O2 O2 Flow FiO2 Time Delivery Rate 02/08/19 98.0 86 18 116/58 96 Room Air 09:02 (77) 02/08/19 2.0 01:09 Intake and Output 02/07/19 02/07/19 02/08/19 1515:00 23:00 07:00 IntakeIntake Total 110 ml 280 ml 1460 ml OutputOutput Total 35 ml 460 ml BalanceBalance 110 ml 245 ml 1000 ml Results Results 24hrs Laboratory Tests Test 02/08/19 06:33 White Blood Count 14.5 #H Red Blood Count 3.87 L Hemoglobin 11.3 L Hematocrit 35.0 L Mean Corpuscular Volume 90.4 Mean Corpuscular Hemoglobin 29.2 Mean Corpuscular Hemoglobin Concent 32.3 Red Cell Distribution Width 17.6 H Platelet Count 275 Mean Platelet Volume 10.5 H Immature Granulocytes % 0.700 H Neutrophils % 84.5 H Lymphocytes % 7.9 L Monocytes % 6.8 Eosinophils % 0.0 Basophils % 0.1 Nucleated Red Blood Cells % 0.0 Immature Granulocytes # 0.100 H Neutrophils # 12.2 H Lymphocytes # 1.1 Monocytes # 1.0 H Eosinophils # 0.0 Basophils # 0.0 Nucleated Red Blood Cells # 0.0 Sodium Level 147 H Potassium Level 3.0 L Chloride Level 112 H Carbon Dioxide Level 28 Anion Gap 7 # Blood Urea Nitrogen 19 Creatinine 0.70 Est Glomerular Filtrat Rate mL/min Glucose Level 107 Calcium Level 9.6 Total Bilirubin 0.9 # Direct Bilirubin 0.10 # Indirect Bilirubin 0.8 Aspartate Amino Transf (AST/SGOT) 78 H Alanine Aminotransferase (ALT/SGPT) 52 Alkaline Phosphatase 297 H Total Protein 6.3 Albumin 3.1 L Globulin 3.20 Albumin/Globulin Ratio 0.96 Medications Medication Current Medications Piperacillin Sod/ Tazobactam Sod 100 ml @ 200 mls/hr Q6 IVPB Last administered on 02/08/19 06:55; Admin Dose 200 MLS/HR; Start 02/05/19 at 06:00 IV Flush (NS 3 ml) 3 ml PER PROTOCOL IV ; Start 02/05/19 at 06:00 Ondansetron HCl (Zofran Inj) 4 mg Q6H PRN IV NAUSEA/VOMITING Last administered on 02/08/19 10:55; Admin Dose 4 MG; Start 02/05/19 at 06:00 Acetaminophen (Tylenol Tab) 650 mg Q6H PRN PO .PAIN 1-3 OR TEMP; Start 02/05/19 at 06:00 Morphine Sulfate (morphine) 2 mg Q4H PRN IV .SEVERE PAIN 7-10 Last administered on 02/08/19 10:55; Admin Dose 2 MG; Start 02/05/19 at 06:00 Amlodipine Besylate (Norvasc) 10 mg BID PO Last administered on 02/07/19 2 1:26; Admin Dose 10 MG; Start 02/05/19 at 21:00 Atorvastatin Calcium (Lipitor) 10 mg QHS PO Last administered on 02/07/19 21:26; Admin Dose 10 MG; Start 02/05/19 at 21:00 Benazepril HCl (Lotensin) 20 mg BID PO Last administered on 02/07/19 21:26; Admin Dose 20 MG; Start 02/05/19 at 21:00 Docusate Sodium (Colace) 250 mg DAILY PO Last administered on 02/08/19 09:00; Admin Dose 250 MG; Start 02/05/19 at 10:00 Metoprolol Succinate (Toprol Xl) 100 mg DAILY PO ; Start 02/05/19 at 10:00 Tamsulosin HCl (Flomax) 0.4 mg DAILY PO Last administered on 02/08/19 09:00; Admin Dose 0.4 MG; Start 02/05/19 at 10:00 Pantoprazole 80 mg/Sodium Chloride 100 ml @ 10 mls/hr Q10H IV Last administered on 02/08/19 02:57; Admin Dose 10 MLS/HR; Start 02/05/19 at 09:30 Metoclopramide HCl (Reglan) 5 mg Q6H PRN IV nausea/vomiting; Start 02/05/19 at 09:30 Hydralazine HCl (Apresoline) 10 mg Q6H PRN IV sbp>160; Start 02/05/19 at 09:30 Fish Oil (Fish Oil) 1,000 mg BID PO Last administered on 02/08/19 09:00; Admin Dose 1,000 MG; Start 02/05/19 at 11:00 Acetaminophen (Tylenol Supp) 650 mg Q6H PRN [place] FEVER Last administered on 02/05/19 18:28; Admin Dose 650 MG; Start 02/05/19 at 12:30 Metoclopramide HCl (Reglan) 10 mg Q6 IV Last administered on 02/08/19 07:01; Admin Dose 10 MG; Start 02/07/19 at 18:30 Polyethylene Glycol (Miralax) 17 gm DAILY PO Last administered on 02/08/19 09:00; Admin Dose 17 GM; Start 02/08/19 at 09:00 MENDY WONG Feb 08, 2019 12:17
[2019-02-08 15:04] VITALS: BP 110/60; PULSE 88; RESP 19
--- NOTE | 2019-02-08 15:37 | CONS ---
Assessment/Plan Assessment/Plan Assessment/Plan (Daily) #Liver mass #Biliary obstruction - s/p unsuccessful cannulation attempt #HTN -continue current management of HTN per primary team. #Hyperlipidemia -continue current management HL per primary team. # Acute Hypokalemia - per PMD # Acute hypernatremia - per PMD -follow up liver biopsy. There is a very high chance of malignancy especially given the elevated CA 19-9>1000 -agree with percutaneous biliary drainage. bili currently at 0.1 -f/u Dr. Davila consult to see if patient is a surgical candidate. If not we would consider neoadjuvant chemotherapy based on the biopsy results Patient seen in collaboration with Dr Esquivel. Dw staff Consultation Date/Type/Reason Admit Date/Time Feb 05, 2019 at 05:27 Initial Consult Date 02/07/19 Type of Consult ONCOLOGY Reason for Consultation LIVER MASS Requesting Provider: JENNIE JEAN BAPTISTE NP Date/Time of Note DATE: 02/08/19 TIME: 15:37 24 HR Interval Summary Free Text/Dictation No events reported overnight Bilirubin 01. today Daughter at bed side- all Qs dw staff answered Constitutional: requiring IVF Detailed Summary Eyes: no complaints ENT: no complaints Respiratory: no complaints Cardiovascular: no complaints Gastrointestinal: pain, decreased appetite Genitourinary: no complaints Musculoskeletal: other (generelized weakness) Skin: no complaints Neurologic: no complaints Exam/Review of Systems Exam Vitals Vital Signs Date Temp Pulse Resp B/P (MAP) Pulse Ox O2 O2 Flow FiO2 Time Delivery Rate 02/08/19 97.8 88 19 110/60 95 Room Air 15:04 (77) 02/08/19 2.0 01:09 Intake and Output 02/07/19 02/07/19 02/08/19 1515:00 23:00 07:00 IntakeIntake Total 110 ml 280 ml 1460 ml OutputOutput Total 35 ml 460 ml BalanceBalance 110 ml 245 ml 1000 ml Constitutional: alert, well developed Psych: nl mood/affect Head: normocephalic Eyes: nl lids, nl sclera ENMT: nl external ears & nose Neck: non-tender Respiratory: diminished breath sounds (at bases bilaterally) Cardiovascular: nl pulses, other (s1s2) Gastrointestinal: soft, tender ( Epigastric and RUL-RLL tenderness. no rebound tenderness. Hypoactive Bowel sounds; biliary drain noted ) Musculoskeletal: nl extremities to inspection Extremities: normal pulses Neurological: nl speech, other (alert/responsive) Skin: nl turgor Lymph: nontender Results Result Diagram: 02/08/1963202/08/19632 Results 24hrs Laboratory Tests Test 02/08/19 06:33 White Blood Count 14.5 #H Red Blood Count 3.87 L Hemoglobin 11.3 L Hematocrit 35.0 L Mean Corpuscular Volume 90.4 Mean Corpuscular Hemoglobin 29.2 Mean Corpuscular Hemoglobin Concent 32.3 Red Cell Distribution Width 17.6 H Platelet Count 275 Mean Platelet Volume 10.5 H Immature Granulocytes % 0.700 H Neutrophils % 84.5 H Lymphocytes % 7.9 L Monocytes % 6.8 Eosinophils % 0.0 Basophils % 0.1 Nucleated Red Blood Cells % 0.0 Immature Granulocytes # 0.100 H Neutrophils # 12.2 H Lymphocytes # 1.1 Monocytes # 1.0 H Eosinophils # 0.0 Basophils # 0.0 Nucleated Red Blood Cells # 0.0 Sodium Level 147 H Potassium Level 3.0 L Chloride Level 112 H Carbon Dioxide Level 28 Anion Gap 7 # Blood Urea Nitrogen 19 Creatinine 0.70 Est Glomerular Filtrat Rate mL/min Glucose Level 107 Calcium Level 9.6 Total Bilirubin 0.9 # Direct Bilirubin 0.10 # Indirect Bilirubin 0.8 Aspartate Amino Transf (AST/SGOT) 78 H Alanine Aminotransferase (ALT/SGPT) 52 Alkaline Phosphatase 297 H Total Protein 6.3 Albumin 3.1 L Globulin 3.20 Albumin/Globulin Ratio 0.96 Medications Medication Current Medications Piperacillin Sod/ Tazobactam Sod 100 ml @ 200 mls/hr Q6 IVPB Last administered on 02/08/19at 12:56; Admin Dose 200 MLS/HR; Start 02/05/19 at 06:00 IV Flush (NS 3 ml) 3 ml PER PROTOCOL IV ; Start 02/05/19 at 06:00 Ondansetron HCl (Zofran Inj) 4 mg Q6H PRN IV NAUSEA/VOMITING Last administered on 02/08/19at 10:55; Admin Dose 4 MG; Start 02/05/19 at 06:00 Acetaminophen (Tylenol Tab) 650 mg Q6H PRN PO .PAIN 1-3 OR TEMP; Start 02/05/19 at 06:00 Morphine Sulfate (morphine) 2 mg Q4H PRN IV .SEVERE PAIN 7-10 Last administered on 02/08/19 15:32; Admin Dose 2 MG; Start 02/05/19 at 06:00 Amlodipine Besylate (Norvasc) 10 mg BID PO Last administered on 02/07/19 21:26; Admin Dose 10 MG; Start 02/05/19 at 21:00 Atorvastatin Calcium (Lipitor) 10 mg QHS PO Last administered on 02/07/19 21:26; Admin Dose 10 MG; Start 02/05/19 at 21:00 Benazepril HCl (Lotensin) 20 mg BID PO Last administered on 02/07/19 21:26; Admin Dose 20 MG; Start 02/05/19 at 21:00 Docusate Sodium (Colace) 250 mg DAILY PO Last administered on 02/08/19 09:00; Admin Dose 250 MG; Start 02/05/19 at 10:00 Metoprolol Succinate (Toprol Xl) 100 mg DAILY PO ; Start 02/05/19 at 10:00 Tamsulosin HCl (Flomax) 0.4 mg DAILY PO Last administered on 02/08/19 09:00; Admin Dose 0.4 MG; Start 02/05/19 at 10:00 Metoclopramide HCl (Reglan) 5 mg Q6H PRN IV nausea/vomiting; Start 02/05/19 at 09:30 Hydralazine HCl (Apresoline) 10 mg Q6H PRN IV sbp>160; Start 02/05/19 at 09:30 Fish Oil (Fish Oil) 1,000 mg BID PO Last administered on 02/08/19 09:00; Admin Dose 1,000 MG; Start 02/05/19 at 11:00 Acetaminophen (Tylenol Supp) 650 mg Q6H PRN [place] FEVER Last administered on 02/05/19 18:28; Admin Dose 650 MG; Start 02/05/19 at 12:30 Metoclopramide HCl (Reglan) 10 mg Q6 IV Last administered on 02/08/19 12:56; Admin Dose 10 MG; Start 02/07/19 at 18:30 Pantoprazole (Protonix Tab) 40 mg DAILY@06 PO ; Start 02/09/19 at 06:00 Polyethylene Glycol (Miralax) 17 gm BID PO ; Start 02/08/19 at 21:00 CHERELLE MERRITT Feb 08, 2019 15:37
--- NOTE | 2019-02-08 16:02 | PN ---
Date/Time of Note Date/Time of Note DATE: 02/08/19 TIME: 16:02 Assessment/Plan VTE Prophylaxis Risk score (from Nsg)>0 risk: 3 SCD applied (from Nsg): Yes Pharmacological prophylaxis: heparin Lines/Catheters IV Catheter Type (from Nrsg): Peripheral IV Assessment/Plan Hospital Course SUBJECTIVE: Having RUQ pain OBJECTIVE: Vital signs-see below PHYSICAL EXAM: Constitutional: Elderly [place]ian female,not in acute distress. HEENT: Head atraumatic and normocephalic. Eyes: Extraocular muscles intact. Anicteric sclerae. Pupils equal bilaterally, reactive to light. NECK: Supple without lymph node. CHEST: Clear and good breath sounds equally. No wheezing. No rhonchi. HEART: S1, S2. Regular rate and rhythm. ABDOMEN:Epigastric/RUL/RLL tenderness. Soft with no rebound tenderness. Bowel sounds hypoactive. EXTREMITIES: No cyanosis, clubbing or edema. NEUROLOGIC: Alert and oriented x3. No focal deficit. No sensory deficit. PSYCHOSOCIAL: No signs of depression. INTEGUMENTARY: No open wounds. ASSESSMENT AND PLAN:84 yo F w/htn,dlp,cholecystectomy,renal stones, lithotripsy here w/ coffee-ground emesis, epigastric/right-sided abdominal pain, and black tarry stoolx 1mos duration, known to have hepatic mass... Hepatic mass W/Biliary obstruction -CT also noted for hepatic ductal obstruction with intrahepatic duct dilatation bilaterally, concerning for cholangiocarcinoma -Plan for Percutaneous guided liver biopsy today -Left message to hepatobiliary surgeon Dr. Davila (available to review case tomorrow, Sunday) and from oncology for case review. -Tumor markers noted. Transaminase elevation with hyperbilirubinemia secondary to above -Attempted ERCP 02/06/2019, unsuccessful. Plan is Percutaneous biliary drainage. Abdominal pain with /coffee-ground emesis/tarry stool -Symptoms improving. Mild sigmoid diverticulitis -stable -Bowel rest, IV fluids Anemia -HH stable Hypertension -stable -resume antihypertensives Dyslipidemia -on statin Urinary retention -on Flomax DVT prophylaxis: SCDs PUD prophylaxis: Protonix CODE STATUS: Full code Diet: N.p.o.except meds Disposition: Follow-up GI/oncology/HBS recommendations. Result Diagram: 02/08/19 0633 02/08/19 0633 Results 24hrs Laboratory Tests Test 02/08/19 06:33 White Blood Count 14.5 #H Red Blood Count 3.87 L Hemoglobin 11.3 L Hematocrit 35.0 L Mean Corpuscular Volume 90.4 Mean Corpuscular Hemoglobin 29.2 Mean Corpuscular Hemoglobin Concent 32.3 Red Cell Distribution Width 17.6 H Platelet Count 275 Mean Platelet Volume 10.5 H Immature Granulocytes % 0.700 H Neutrophils % 84.5 H Lymphocytes % 7.9 L Monocytes % 6.8 Eosinophils % 0.0 Basophils % 0.1 Nucleated Red Blood Cells % 0.0 Immature Granulocytes # 0.100 H Neutrophils # 12.2 H Lymphocytes # 1.1 Monocytes # 1.0 H Eosinophils # 0.0 Basophils # 0.0 Nucleated Red Blood Cells # 0.0 Sodium Level 147 H Potassium Level 3.0 L Chloride Level 112 H Carbon Dioxide Level 28 Anion Gap 7 # Blood Urea Nitrogen 19 Creatinine 0.70 Est Glomerular Filtrat Rate mL/min Glucose Level 107 Calcium Level 9.6 Total Bilirubin 0.9 # Direct Bilirubin 0.10 # Indirect Bilirubin 0.8 Aspartate Amino Transf (AST/SGOT) 78 H Alanine Aminotransferase (ALT/SGPT) 52 Alkaline Phosphatase 297 H Total Protein 6.3 Albumin 3.1 L Globulin 3.20 Albumin/Globulin Ratio 0.96 Exam/Review of Systems Exam Vitals Vital Signs Date Temp Pulse Resp B/P (MAP) Pulse Ox O2 O2 Flow FiO2 Time Delivery Rate 02/08/19 97.8 88 19 110/60 95 Room Air 15:04 (77) 02/08/19 2.0 01:09 Intake and Output 02/07/19 02/07/19 02/08/19 1515:00 23:00 07:00 IntakeIntake Total 110 ml 280 ml 1460 ml OutputOutput Total 35 ml 460 ml BalanceBalance 110 ml 245 ml 1000 ml Results Results 24hrs Laboratory Tests Test 02/08/19 06:33 White Blood Count 14.5 #H Red Blood Count 3.87 L Hemoglobin 11.3 L Hematocrit 35.0 L Mean Corpuscular Volume 90.4 Mean Corpuscular Hemoglobin 29.2 Mean Corpuscular Hemoglobin Concent 32.3 Red Cell Distribution Width 17.6 H Platelet Count 275 Mean Platelet Volume 10.5 H Immature Granulocytes % 0.700 H Neutrophils % 84.5 H Lymphocytes % 7.9 L Monocytes % 6.8 Eosinophils % 0.0 Basophils % 0.1 Nucleated Red Blood Cells % 0.0 Immature Granulocytes # 0.100 H Neutrophils # 12.2 H Lymphocytes # 1.1 Monocytes # 1.0 H Eosinophils # 0.0 Basophils # 0.0 Nucleated Red Blood Cells # 0.0 Sodium Level 147 H Potassium Level 3.0 L Chloride Level 112 H Carbon Dioxide Level 28 Anion Gap 7 # Blood Urea Nitrogen 19 Creatinine 0.70 Est Glomerular Filtrat Rate mL/min Glucose Level 107 Calcium Level 9.6 Total Bilirubin 0.9 # Direct Bilirubin 0.10 # Indirect Bilirubin 0.8 Aspartate Amino Transf (AST/SGOT) 78 H Alanine Aminotransferase (ALT/SGPT) 52 Alkaline Phosphatase 297 H Total Protein 6.3 Albumin 3.1 L Globulin 3.20 Albumin/Globulin Ratio 0.96 Medications Medication Current Medications Piperacillin Sod/ Tazobactam Sod 100 ml @ 200 mls/hr Q6 IVPB Last administered on 02/08/19 12:56; Admin Dose 200 MLS/HR; Start 02/05/19 at 06:00 IV Flush (NS 3 ml) 3 ml PER PROTOCOL IV ; Start 02/05/19 at 06:00 Ondansetron HCl (Zofran Inj) 4 mg Q6H PRN IV NAUSEA/VOMITING Last administered on 02/08/19 15:36; Admin Dose 4 MG; Start 02/05/19 at 06:00 Acetaminophen (Tylenol Tab) 650 mg Q6H PRN PO .PAIN 1-3 OR TEMP; Start 02/05/19 at 06:00 Morphine Sulfate (morphine) 2 mg Q4H PRN IV .SEVERE PAIN 7-10 Last administered on 02/08/19 15:32; Admin Dose 2 MG; Start 02/05/19 at 06:00 Amlodipine Besylate (Norvasc) 10 mg BID PO Last administered on 02/07/19 21:26; Admin Dose 10 MG; Start 02/05/19 at 21:00 Atorvastatin Calcium (Lipitor) 10 mg QHS PO Last administered on 02/07/19 21:26; Admin Dose 10 MG; Start 02/05/19 at 21:00 Benazepril HCl (Lotensin) 20 mg BID PO Last administered on 02/07/19 21:26; Admin Dose 20 MG; Start 02/05/19 at 21:00 Docusate Sodium (Colace) 250 mg DAILY PO Last administered on 02/08/19 09:00; Admin Dose 250 MG; Start 02/05/19 at 10:00 Metoprolol Succinate (Toprol Xl) 100 mg DAILY PO ; Start 02/05/19 at 10:00 Tamsulosin HCl (Flomax) 0.4 mg DAILY PO Last administered on 02/08/19 09:00; Admin Dose 0.4 MG; Start 02/05/19 at 10:00 Metoclopramide HCl (Reglan) 5 mg Q6H PRN IV nausea/vomiting; Start 02/05/19 at 09:30 Hydralazine HCl (Apresoline) 10 mg Q6H PRN IV sbp>160; Start 02/05/19 at 09:30 Fish Oil (Fish Oil) 1,000 mg BID PO Last administered on 02/08/19 09:00; Admin Dose 1,000 MG; Start 02/05/19 at 11:00 Acetaminophen (Tylenol Supp) 650 mg Q6H PRN [place] FEVER Last administered on 02/05/19at 18:28; Admin Dose 650 MG; Start 02/05/19 at 12:30 Metoclopramide HCl (Reglan) 10 mg Q6 IV Last administered on 02/08/19at 12:56; Admin Dose 10 MG; Start 02/07/19 at 18:30 Pantoprazole (Protonix Tab) 40 mg DAILY@06 PO ; Start 02/09/19 at 06:00 Polyethylene Glycol (Miralax) 17 gm BID PO ; Start 02/08/19 at 21:00 BRONWYN FRAUSTO MD Feb 08, 2019 16:02
[2019-02-08 20:13] VITALS: BP 133/60; PULSE 92; RESP 18
[2019-02-08] MEDS: POLYETHYLENE GLYCOL 17 GM PACKET PO SCH (21:01)
[2019-02-08] MEDS: ATORVASTATIN 10 MG TAB PO SCH (21:02)
[2019-02-09 02:53] VITALS: BP 112/67; PULSE 101; RESP 18
[2019-02-09] MEDS: morphine 2 MG INJ IV PRN ×5 (03:37→23:26)
[2019-02-09] MEDS: ACETAMINOPHEN 325 MG TAB PO PRN ×3 (03:37→21:26)
[2019-02-09] MEDS: PIPER-TAZO 3.375 GM IV (PMX) 100 ML IVPB SCH ×4 (05:35→23:23)
[2019-02-09] MEDS: METOCLOPRAMIDE 10 MG INJ IV SCH (05:35)
[2019-02-09] MEDS: PANTOPRAZOLE (EC) 40 MG TAB PO SCH (05:44)
[2019-02-09 07:46] VITALS: BP 91/49; PULSE 85; RESP 17
[2019-02-09] MEDS: ONDANSETRON 4 MG INJ IV PRN ×2 (08:58→17:23)
[2019-02-09] MEDS: METOPROLOL (XL) 100 MG TAB PO SCH (09:00)
[2019-02-09] MEDS: POLYETHYLENE GLYCOL 17 GM PACKET PO SCH ×2 (09:00→09:08)
[2019-02-09] MEDS: AMLODIPINE 10 MG TAB PO SCH (09:00)
[2019-02-09] MEDS: BENAZEPRIL 20 MG TAB PO SCH (09:00)
[2019-02-09 09:07] VITALS: BP 105/51
[2019-02-09] MEDS: DOCUSATE SODIUM 250 MG CAP PO SCH (09:07)
[2019-02-09] MEDS: FISH OIL 1,000 MG CAP PO SCH (09:07)
[2019-02-09] MEDS: TAMSULOSIN (SR) 0.4 MG CAP PO SCH (09:08)
[2019-02-09] MEDS ORDERED: POTASSIUM CHLORIDE (SR) 20 MEQ TAB PO STA (10:31)
--- NOTE | 2019-02-09 11:04 | CONS ---
Assessment/Plan Assessment/Plan Assessment/Plan (Daily) #Liver mass #Biliary obstruction - s/p unsuccessful cannulation attempt #HTN -continue current management of HTN per primary team. #Hyperlipidemia -continue current management HL per primary team. # Acute severe Hypokalemia - per PMD # Acute hypernatremia - per PMD -follow up liver biopsy. There is a very high chance of malignancy especially given the elevated CA 19-9>1000 -agree with percutaneous biliary drainage. bili currently at 0.40 -f/u Dr. Davila consult to see if patient is a surgical candidate. If not we would consider neoadjuvant chemotherapy based on the biopsy results Patient seen in collaboration with Dr Esquviel. Dw staff Consultation Date/Type/Reason Admit Date/Time Feb 05, 2019 at 05:27 Initial Consult Date 02/07/19 Type of Consult oncology Reason for Consultation Liver Mass Requesting Provider: JENNIE JEAN BAPTISTE NP Date/Time of Note DATE: 02/09/19 TIME: 11:04 24 HR Interval Summary Free Text/Dictation No events reported overnight c/o abdominal pain Bilirubin 0.40 today Daughter at bed side- all Qs dw staff answered Detailed Summary Eyes: no complaints ENT: no complaints Respiratory: no complaints Cardiovascular: no complaints Gastrointestinal: pain, decreased appetite Exam/Review of Systems Exam Vitals Vital Signs Date Temp Pulse Resp B/P (MAP) Pulse Ox O2 O2 Flow FiO2 Time Delivery Rate 02/09/19 105/51 09:07 (69) 02/09/19 Nasal 2.0 08:00 Cannula 02/09/19 98.2 85 17 94 07:46 Intake and Output 02/08/19 02/08/19 02/09/19 1515:00 23:00 07:00 IntakeIntake Total 200 ml 100 ml 200 ml OutputOutput Total 90 ml 150 ml 200 ml BalanceBalance 110 ml -50 ml 0 ml Constitutional: alert, well developed Psych: nl mood/affect Eyes: nl lids, nl sclera ENMT: nl external ears & nose Neck: non-tender Respiratory: diminished breath sounds Cardiovascular: nl pulses, other (s1s2) Gastrointestinal: soft, tender (epigastric, RUQ/LUQ tenderness, hypoactive bowel sounds.) Musculoskeletal: nl extremities to inspection Extremities: normal pulses Neurological: nl mental status, nl speech Skin: nl turgor Lymph: nontender Results Result Diagram: 02/09/19 0649 02/09/19 0649 Results 24hrs Laboratory Tests Test 02/09/19 06:49 White Blood Count 15.9 H Red Blood Count 3.58 L Hemoglobin 10.7 L Hematocrit 32.9 L Mean Corpuscular Volume 91.9 Mean Corpuscular Hemoglobin 29.9 Mean Corpuscular Hemoglobin Concent 32.5 Red Cell Distribution Width 17.2 H Platelet Count 233 Mean Platelet Volume 10.6 H Immature Granulocytes % 1.600 H Neutrophils % 84.1 H Lymphocytes % 6.9 L Monocytes % 7.1 Eosinophils % 0.0 Basophils % 0.3 Nucleated Red Blood Cells % 0.0 Immature Granulocytes # 0.250 H Neutrophils # 13.4 H Lymphocytes # 1.1 Monocytes # 1.1 H Eosinophils # 0.0 Basophils # 0.1 Nucleated Red Blood Cells # 0.0 Sodium Level 143 Potassium Level 2.9 *L Chloride Level 110 Carbon Dioxide Level 26 Anion Gap 7 Blood Urea Nitrogen 13 Creatinine 0.61 Est Glomerular Filtrat Rate mL/min Glucose Level 76 Calcium Level 9.1 Total Bilirubin 1.3 Direct Bilirubin 0.40 #H Indirect Bilirubin 0.9 Aspartate Amino Transf (AST/SGOT) 34 Alanine Aminotransferase (ALT/SGPT) 36 Alkaline Phosphatase 205 H Total Protein 5.5 L Albumin 2.6 L Globulin 2.90 Albumin/Globulin Ratio 0.89 Medications Medication Current Medications Piperacillin Sod/ Tazobactam Sod 100 ml @ 200 mls/hr Q6 IVPB Last administered on 02/09/19at 05:35; Admin Dose 200 MLS/HR; Start 02/05/19 at 06:00 IV Flush (NS 3 ml) 3 ml PER PROTOCOL IV ; Start 02/05/19 at 06:00 Ondansetron HCl (Zofran Inj) 4 mg Q6H PRN IV NAUSEA/VOMITING Last administered on 02/09/19at 08:58; Admin Dose 4 MG; Start 02/05/19 at 06:00 Acetaminophen (Tylenol Tab) 650 mg Q6H PRN PO .PAIN 1-3 OR TEMP Last administered on 02/09/19at 03:37; Admin Dose 650 MG; Start 02/05/19 at 06:00 Morphine Sulfate (morphine) 2 mg Q4H PRN IV .SEVERE PAIN 7-10 Last administered on 02/09/19at 08:56; Admin Dose 2 MG; Start 02/05/19 at 06:00 Docusate Sodium (Colace) 250 mg DAILY PO Last administered on 02/09/19at 09:07; Admin Dose 250 MG; Start 02/05/19 at 10:00 Metoprolol Succinate (Toprol Xl) 100 mg DAILY PO ; Start 02/05/19 at 10:00 Metoclopramide HCl (Reglan) 5 mg Q6H PRN IV nausea/vomiting; Start 02/05/19 at 09:30 Hydralazine HCl (Apresoline) 10 mg Q6H PRN IV sbp>160; Start 02/05/19 at 09:30 Acetaminophen (Tylenol Supp) 650 mg Q6H PRN [place] FEVER Last administered on 02/05/19at 18:28; Admin Dose 650 MG; Start 02/05/19 at 12:30 Pantoprazole (Protonix Tab) 40 mg DAILY@06 PO Last administered on 02/09/19at 05:44; Admin Dose 40 MG; Start 02/09/19 at 06:00 Potassium Chloride 100 ml @ 50 mls/hr Q2H IVPB ; Start 02/09/19 at 11:00; Stop 02/09/19 at 14:59 CHERELLE MERRITT Feb 09, 2019 11:04
[2019-02-09] MEDS: DEXTROSE 5%-0.45% NACL 1,000 ML IV SCH ×2 (12:16→20:00)
[2019-02-09] MEDS: POTASSIUM CHLORIDE 100 ML IVPB SCH ×2 (12:18→14:27)
--- NOTE | 2019-02-09 14:42 | PN ---
Date/Time of Note Date/Time of Note DATE: 02/09/19 TIME: 14:40 Assessment/Plan VTE Prophylaxis Risk score (from Nsg)>0 risk: 5 SCD applied (from Nsg): Yes Pharmacological prophylaxis: heparin Lines/Catheters IV Catheter Type (from Nrsg): Saline Lock Assessment/Plan Hospital Course SUBJECTIVE: Having RUQ pain OBJECTIVE: Vital signs-see below PHYSICAL EXAM: Constitutional: Elderly Occitan female,not in acute distress. HEENT: Head atraumatic and normocephalic. Eyes: Extraocular muscles intact. Anicteric sclerae. Pupils equal bilaterally, reactive to light. NECK: Supple without lymph node. CHEST: Clear and good breath sounds equally. No wheezing. No rhonchi. HEART: S1, S2. Regular rate and rhythm. ABDOMEN:Epigastric/RUL/RLL tenderness. Soft with no rebound tenderness. Bowel sounds hypoactive. EXTREMITIES: No cyanosis, clubbing or edema. NEUROLOGIC: Alert and oriented x3. No focal deficit. No sensory deficit. PSYCHOSOCIAL: No signs of depression. INTEGUMENTARY: No open wounds. ASSESSMENT AND PLAN:84 yo F w/htn,dlp,cholecystectomy,renal stones, lithotripsy here w/ coffee-ground emesis, epigastric/right-sided abdominal pain, and black tarry stoolx 1mos duration, known to have hepatic mass... Hepatic mass W/Biliary obstruction -CT also noted for hepatic ductal obstruction with intrahepatic duct dilatation bilaterally, concerning for cholangiocarcinoma -Plan for Percutaneous guided liver biopsy Sunday Transaminase elevation with hyperbilirubinemia secondary to above -Attempted ERCP 02/06/2019, unsuccessful. Plan is Percutaneous biliary drainage. Abdominal pain with /coffee-ground emesis/tarry stool -Symptoms improving. Mild sigmoid diverticulitis -stable -Bowel rest, IV fluids Anemia -HH stable Hypertension - Hold BP meds, pressure getting low Dyslipidemia - stop statin for now DVT prophylaxis: SCDs PUD prophylaxis: Protonix CODE STATUS: Full code Diet: N.p.o.except meds Disposition: Follow-up GI/oncology/HBS recommendations. Result Diagram: 02/09/19 0649 02/09/19 0649 Results 24hrs Laboratory Tests Test 02/09/19 06:49 White Blood Count 15.9 H Red Blood Count 3.58 L Hemoglobin 10.7 L Hematocrit 32.9 L Mean Corpuscular Volume 91.9 Mean Corpuscular Hemoglobin 29.9 Mean Corpuscular Hemoglobin Concent 32.5 Red Cell Distribution Width 17.2 H Platelet Count 233 Mean Platelet Volume 10.6 H Immature Granulocytes % 1.600 H Neutrophils % 84.1 H Lymphocytes % 6.9 L Monocytes % 7.1 Eosinophils % 0.0 Basophils % 0.3 Nucleated Red Blood Cells % 0.0 Immature Granulocytes # 0.250 H Neutrophils # 13.4 H Lymphocytes # 1.1 Monocytes # 1.1 H Eosinophils # 0.0 Basophils # 0.1 Nucleated Red Blood Cells # 0.0 Sodium Level 143 Potassium Level 2.9 *L Chloride Level 110 Carbon Dioxide Level 26 Anion Gap 7 Blood Urea Nitrogen 13 Creatinine 0.61 Est Glomerular Filtrat Rate mL/min Glucose Level 76 Calcium Level 9.1 Total Bilirubin 1.3 Direct Bilirubin 0.40 #H Indirect Bilirubin 0.9 Aspartate Amino Transf (AST/SGOT) 34 Alanine Aminotransferase (ALT/SGPT) 36 Alkaline Phosphatase 205 H Total Protein 5.5 L Albumin 2.6 L Globulin 2.90 Albumin/Globulin Ratio 0.89 Subjective 24 Hr Interval Summary Free Text/Dictation Still with pain in abdominal Nauseous, not eating at all Exam/Review of Systems Exam Vitals Vital Signs Date Temp Pulse Resp B/P (MAP) Pulse Ox O2 O2 Flow FiO2 Time Delivery Rate 02/09/19 105/51 09:07 (69) 02/09/19 Nasal 2.0 08:00 Cannula 02/09/19 98.2 85 17 94 07:46 Intake and Output 02/08/19 02/08/19 02/09/19 1515:00 23:00 07:00 IntakeIntake Total 200 ml 100 ml 200 ml OutputOutput Total 90 ml 150 ml 200 ml BalanceBalance 110 ml -50 ml 0 ml Results Results 24hrs Laboratory Tests Test 02/09/19 06:49 White Blood Count 15.9 H Red Blood Count 3.58 L Hemoglobin 10.7 L Hematocrit 32.9 L Mean Corpuscular Volume 91.9 Mean Corpuscular Hemoglobin 29.9 Mean Corpuscular Hemoglobin Concent 32.5 Red Cell Distribution Width 17.2 H Platelet Count 233 Mean Platelet Volume 10.6 H Immature Granulocytes % 1.600 H Neutrophils % 84.1 H Lymphocytes % 6.9 L Monocytes % 7.1 Eosinophils % 0.0 Basophils % 0.3 Nucleated Red Blood Cells % 0.0 Immature Granulocytes # 0.250 H Neutrophils # 13.4 H Lymphocytes # 1.1 Monocytes # 1.1 H Eosinophils # 0.0 Basophils # 0.1 Nucleated Red Blood Cells # 0.0 Sodium Level 143 Potassium Level 2.9 *L Chloride Level 110 Carbon Dioxide Level 26 Anion Gap 7 Blood Urea Nitrogen 13 Creatinine 0.61 Est Glomerular Filtrat Rate mL/min Glucose Level 76 Calcium Level 9.1 Total Bilirubin 1.3 Direct Bilirubin 0.40 #H Indirect Bilirubin 0.9 Aspartate Amino Transf (AST/SGOT) 34 Alanine Aminotransferase (ALT/SGPT) 36 Alkaline Phosphatase 205 H Total Protein 5.5 L Albumin 2.6 L Globulin 2.90 Albumin/Globulin Ratio 0.89 Medications Medication Current Medications Piperacillin Sod/ Tazobactam Sod 100 ml @ 200 mls/hr Q6 IVPB Last administered on 02/09/19 11:27; Admin Dose 200 MLS/HR; Start 02/05/19 at 06:00 IV Flush (NS 3 ml) 3 ml PER PROTOCOL IV ; Start 02/05/19 at 06:00 Ondansetron HCl (Zofran Inj) 4 mg Q6H PRN IV NAUSEA/VOMITING Last administered on 02/09/19 08:58; Admin Dose 4 MG; Start 02/05/19 at 06:00 Acetaminophen (Tylenol Tab) 650 mg Q6H PRN PO .PAIN 1-3 OR TEMP Last admi nistered on 02/09/19 11:25; Admin Dose 650 MG; Start 02/05/19 at 06:00 Morphine Sulfate (morphine) 2 mg Q4H PRN IV .SEVERE PAIN 7-10 Last administered on 02/09/19 13:15; Admin Dose 2 MG; Start 02/05/19 at 06:00 Docusate Sodium (Colace) 250 mg DAILY PO Last administered on 02/09/19 09:07; Admin Dose 250 MG; Start 02/05/19 at 10:00 Metoprolol Succinate (Toprol Xl) 100 mg DAILY PO ; Start 02/05/19 at 10:00 Metoclopramide HCl (Reglan) 5 mg Q6H PRN IV nausea/vomiting; Start 02/05/19 at 09:30 Hydralazine HCl (Apresoline) 10 mg Q6H PRN IV sbp>160; Start 02/05/19 at 09:30 Acetaminophen (Tylenol Supp) 650 mg Q6H PRN [place] FEVER Last administered on 02/05/19at 18:28; Admin Dose 650 MG; Start 02/05/19 at 12:30 Pantoprazole (Protonix Tab) 40 mg DAILY@06 PO Last administered on 02/09/19at 05:44; Admin Dose 40 MG; Start 02/09/19 at 06:00 Potassium Chloride 100 ml @ 50 mls/hr Q2H IVPB Last administered on 02/09/19at 14:27; Admin Dose 50 MLS/HR; Start 02/09/19 at 11:00; Stop 02/09/19 at 14:59 Dextrose/Sodium Chloride 1,000 ml @ 125 mls/hr Q8H IV Last administered on 02/09/19at 12:16; Admin Dose 125 MLS/HR; Start 02/09/19 at 12:00 BRONWYN FRAUSTO MD Feb 09, 2019 14:42
[2019-02-09 15:37] VITALS: BP 104/61; PULSE 84; RESP 17
[2019-02-09 20:15] VITALS: BP 96/48; PULSE 89; RESP 18
[2019-02-09 21:32] VITALS: BP 107/64; PULSE 93
[2019-02-10] VITALS (9 sets, daily range): BP systolic 98–135; BP diastolic 47–68; PULSE 74–97; RESP 18–19
[2019-02-10] MEDS: DEXTROSE 5%-0.45% NACL 1,000 ML IV SCH ×3 (03:18→20:00)
[2019-02-10] MEDS: ACETAMINOPHEN 325 MG TAB PO PRN (03:22)
[2019-02-10] MEDS: PANTOPRAZOLE (EC) 40 MG TAB PO SCH (06:30)
[2019-02-10] MEDS: PIPER-TAZO 3.375 GM IV (PMX) 100 ML IVPB SCH ×3 (06:30→20:11)
[2019-02-10] MEDS: morphine 2 MG INJ IV PRN ×4 (06:36→21:34)
[2019-02-10] MEDS: ONDANSETRON 4 MG INJ IV PRN (06:41)
[2019-02-10] MEDS: DOCUSATE SODIUM 250 MG CAP PO SCH (08:35)
[2019-02-10] MEDS: METOPROLOL (XL) 100 MG TAB PO SCH (08:35)
--- NOTE | 2019-02-10 10:28 | CONS ---
Assessment/Plan Assessment/Plan Hospital Course (Demo Recall) #Liver mass #Biliary obstruction - s/p unsuccessful cannulation attempt #Pancreatic Cyst #HTN #Hyperlipidemia -follow up liver biopsy to be done today. There is a very high chance of malignancy especially given the elevated CA 19-9>1000 -s/p percutaneous biliary drainage. T bili now wnl -f/u Dr. Davila consul to see if patient is a surgical candidate. If not we would consider neoadjuvant chemotherapy based on the biopsy results -continue to monitor pancreatic cyst with serial imaging -continue current management of HTN, and HL per the primary team Thank you for the opportunity to participate in this patients care A total of 40 minutes of face to face time was spent speaking with the patient, of which greater than 50% was spent in counseling and coordination of care and the detailed question and answer session. Consultation Date/Type/Reason Admit Date/Time Feb 05, 2019 at 05:27 Initial Consult Date 02/07/19 Type of Consult oncology Reason for Consultation liver mass Requesting Provider: JENNIE JEAN BAPTISTE NP Date/Time of Note DATE: 02/10/19 TIME: 10:25 24 HR Interval Summary Free Text/Dictation pt still requiring pain meds ATC. scheduled for liver bx today Exam/Review of Systems Exam Vitals Vital Signs Date Temp Pulse Resp B/P (MAP) Pulse Ox O2 O2 Flow FiO2 Time Delivery Rate 02/10/19 96.4 74 18 115/65 98 08:08 (82) 02/10/19 2.0 00:39 02/09/19 Nasal 20:26 Cannula Intake and Output 02/09/19 02/09/19 02/10/19 1515:00 23:00 07:00 IntakeIntake Total 320 ml 550 ml 1400 ml OutputOutput Total 170 ml 75 ml BalanceBalance 320 ml 380 ml 1325 ml Constitutional: alert, oriented Psych: anxiety, depression Head: normocephalic Eyes: nl conjunctiva ENMT: nl external ears & nose Neck: supple Respiratory: clear to auscultation Cardiovascular: regular rate and rhythm Gastrointestinal: tender Musculoskeletal: nl extremities to inspection Results Result Diagram: 02/10/19 0612 02/10/19 0612 Results 24hrs Laboratory Tests Test 02/10/19 06:12 White Blood Count 13.4 H Red Blood Count 3.39 L Hemoglobin 10.1 L Hematocrit 30.7 L Mean Corpuscular Volume 90.6 Mean Corpuscular Hemoglobin 29.8 Mean Corpuscular Hemoglobin Concent 32.9 Red Cell Distribution Width 17.2 H Platelet Count 208 Mean Platelet Volume 10.8 H Immature Granulocytes % 1.300 H Neutrophils % 85.1 H Lymphocytes % 7.1 L Monocytes % 6.2 Eosinophils % 0.0 Basophils % 0.3 Nucleated Red Blood Cells % 0.0 Immature Granulocytes # 0.170 H Neutrophils # 11.4 H Lymphocytes # 1.0 Monocytes # 0.8 Eosinophils # 0.0 Basophils # 0.0 Nucleated Red Blood Cells # 0.0 Sodium Level 141 Potassium Level 3.5 Chloride Level 110 Carbon Dioxide Level 26 Anion Gap 5 Blood Urea Nitrogen 11 Creatinine 0.57 Est Glomerular Filtrat Rate mL/min Glucose Level 143 # Calcium Level 9.6 Magnesium Level 1.9 Medications Medication Current Medications Piperacillin Sod/ Tazobactam Sod 100 ml @ 200 mls/hr Q6 IVPB Last administered on 02/10/19 06:30; Admin Dose 200 MLS/HR; Start 02/05/19 at 06:00 IV Flush (NS 3 ml) 3 ml PER PROTOCOL IV ; Start 02/05/19 at 06:00 Ondansetron HCl (Zofran Inj) 4 mg Q6H PRN IV NAUSEA/VOMITING Last administered on 02/10/19 06:41; Admin Dose 4 MG; Start 02/05/19 at 06:00 Acetaminophen (Tylenol Tab) 650 mg Q6H PRN PO .PAIN 1-3 OR TEMP Last administ ered on 02/10/19 03:22; Admin Dose 650 MG; Start 02/05/19 at 06:00 Morphine Sulfate (morphine) 2 mg Q4H PRN IV .SEVERE PAIN 7-10 Last administered on 02/10/19 06:36; Admin Dose 2 MG; Start 02/05/19 at 06:00 Docusate Sodium (Colace) 250 mg DAILY PO Last administered on 02/09/19 09:07; Admin Dose 250 MG; Start 02/05/19 at 10:00 Metoprolol Succinate (Toprol Xl) 100 mg DAILY PO ; Start 02/05/19 at 10:00 Metoclopramide HCl (Reglan) 5 mg Q6H PRN IV nausea/vomiting; Start 02/05/19 at 09:30 Hydralazine HCl (Apresoline) 10 mg Q6H PRN IV sbp>160; Start 02/05/19 at 09:30 Acetaminophen (Tylenol Supp) 650 mg Q6H PRN [place] FEVER Last administered on 02/05/19at 18:28; Admin Dose 650 MG; Start 02/05/19 at 12:30 Pantoprazole (Protonix Tab) 40 mg DAILY@06 PO Last administered on 02/10/19at 06:30; Admin Dose 40 MG; Start 02/09/19 at 06:00 Dextrose/Sodium Chloride 1,000 ml @ 125 mls/hr Q8H IV Last administered on 02/10/19at 03:18; Admin Dose 125 MLS/HR; Start 02/09/19 at 12:00 MARK FORREST M.D. Feb 10, 2019 10:28
[2019-02-10] MEDS ORDERED: LIDOCAINE 1% (MDV) 20 ML INJ ONE (13:06)
[2019-02-10] MEDS ORDERED: MIDAZOLAM 1 MG/ML 2 ML INJ ONE (13:51)
[2019-02-10] MEDS ORDERED: GELATIN 12MM X 7 MM SPONGE ONE (14:11)
[2019-02-10] MEDS ORDERED: GELATIN 12MM X 7 MM SPONGE TOP ONE (15:30)
--- NOTE | 2019-02-10 16:14 | PN ---
Date/Time of Note Date/Time of Note DATE: 02/10/19 TIME: 16:13 Assessment/Plan VTE Prophylaxis Risk score (from Nsg)>0 risk: 4 SCD applied (from Nsg): Yes Pharmacological prophylaxis: heparin Lines/Catheters IV Catheter Type (from Nrsg): Peripheral IV Assessment/Plan Hospital Course SUBJECTIVE: Having RUQ pain OBJECTIVE: Vital signs-see below PHYSICAL EXAM: Constitutional: Elderly [place] female,not in acute distress. HEENT: Head atraumatic and normocephalic. Eyes: Extraocular muscles intact. Anicteric sclerae. Pupils equal bilaterally, reactive to light. NECK: Supple without lymph node. CHEST: Clear and good breath sounds equally. No wheezing. No rhonchi. HEART: S1, S2. Regular rate and rhythm. ABDOMEN:Epigastric/RUL/RLL tenderness. Soft with no rebound tenderness. Bowel sounds hypoactive. EXTREMITIES: No cyanosis, clubbing or edema. NEUROLOGIC: Alert and oriented x3. No focal deficit. No sensory deficit. PSYCHOSOCIAL: No signs of depression. INTEGUMENTARY: No open wounds. ASSESSMENT AND PLAN:84 yo F w/htn,dlp,cholecystectomy,renal stones, lithotripsy here w/ coffee-ground emesis, epigastric/right-sided abdominal pain, and black tarry stoolx 1mos duration, known to have hepatic mass... Hepatic mass W/Biliary obstruction -CT also noted for hepatic ductal obstruction with intrahepatic duct dilatation bilaterally, concerning for cholangiocarcinoma -Plan for Percutaneous guided liver biopsy today Transaminase elevation with hyperbilirubinemia secondary to above -Attempted ERCP 02/06/2019, unsuccessful. s/p Percutaneous biliary drainage. Abdominal pain with /coffee-ground emesis/tarry stool -Symptoms improving. Mild sigmoid diverticulitis -stable -Bowel rest, IV fluids Anemia -HH stable Hypertension - Hold BP meds, pressure getting low Dyslipidemia - stop statin for now DVT prophylaxis: SCDs PUD prophylaxis: Protonix CODE STATUS: Full code Diet: N.p.o.except meds Disposition: Follow-up GI/oncology/HBS recommendations. Result Diagram: 02/10/19 0612 02/10/19 0612 Results 24hrs Laboratory Tests Test 02/10/19 06:12 White Blood Count 13.4 H Red Blood Count 3.39 L Hemoglobin 10.1 L Hematocrit 30.7 L Mean Corpuscular Volume 90.6 Mean Corpuscular Hemoglobin 29.8 Mean Corpuscular Hemoglobin Concent 32.9 Red Cell Distribution Width 17.2 H Platelet Count 208 Mean Platelet Volume 10.8 H Immature Granulocytes % 1.300 H Neutrophils % 85.1 H Lymphocytes % 7.1 L Monocytes % 6.2 Eosinophils % 0.0 Basophils % 0.3 Nucleated Red Blood Cells % 0.0 Immature Granulocytes # 0.170 H Neutrophils # 11.4 H Lymphocytes # 1.0 Monocytes # 0.8 Eosinophils # 0.0 Basophils # 0.0 Nucleated Red Blood Cells # 0.0 Sodium Level 141 Potassium Level 3.5 Chloride Level 110 Carbon Dioxide Level 26 Anion Gap 5 Blood Urea Nitrogen 11 Creatinine 0.57 Est Glomerular Filtrat Rate mL/min Glucose Level 143 # Calcium Level 9.6 Magnesium Level 1.9 Subjective 24 Hr Interval Summary Free Text/Dictation Liver biopsy today No change to clinical status Exam/Review of Systems Exam Vitals Vital Signs Date Temp Pulse Resp B/P (MAP) Pulse Ox O2 O2 Flow FiO2 Time Delivery Rate 02/10/19 98.7 85 18 126/68 93 15:35 (87) 02/10/19 Nasal 2.0 08:00 Cannula Intake and Output 02/09/19 02/09/19 02/10/19 1515:00 23:00 07:00 IntakeIntake Total 320 ml 550 ml 1400 ml OutputOutput Total 170 ml 75 ml BalanceBalance 320 ml 380 ml 1325 ml Results Results 24hrs Laboratory Tests Test 02/10/19 06:12 White Blood Count 13.4 H Red Blood Count 3.39 L Hemoglobin 10.1 L Hematocrit 30.7 L Mean Corpuscular Volume 90.6 Mean Corpuscular Hemoglobin 29.8 Mean Corpuscular Hemoglobin Concent 32.9 Red Cell Distribution Width 17.2 H Platelet Count 208 Mean Platelet Volume 10.8 H Immature Granulocytes % 1.300 H Neutrophils % 85.1 H Lymphocytes % 7.1 L Monocytes % 6.2 Eosinophils % 0.0 Basophils % 0.3 Nucleated Red Blood Cells % 0.0 Immature Granulocytes # 0.170 H Neutrophils # 11.4 H Lymphocytes # 1.0 Monocytes # 0.8 Eosinophils # 0.0 Basophils # 0.0 Nucleated Red Blood Cells # 0.0 Sodium Level 141 Potassium Level 3.5 Chloride Level 110 Carbon Dioxide Level 26 Anion Gap 5 Blood Urea Nitrogen 11 Creatinine 0.57 Est Glomerular Filtrat Rate mL/min Glucose Level 143 # Calcium Level 9.6 Magnesium Level 1.9 Medications Medication Current Medications Piperacillin Sod/ Tazobactam Sod 100 ml @ 200 mls/hr Q6 IVPB Last administered on 02/10/19 15:37; Admin Dose 200 MLS/HR; Start 02/05/19 at 06:00 IV Flush (NS 3 ml) 3 ml PER PROTOCOL IV ; Start 02/05/19 at 06:00 Ondansetron HCl (Zofran Inj) 4 mg Q6H PRN IV NAUSEA/VOMITING Last administered on 02/10/19 06:41; Admin Dose 4 MG; Start 02/05/19 at 06:00 Acetaminophen (Tylenol Tab) 650 mg Q6H PRN PO .PAIN 1-3 OR TEMP Last administered on 02/10/19 03:22; Admin Dose 650 MG; Start 02/05/19 at 06:00 Morphine Sulfate (morphine) 2 mg Q4H PRN IV .SEVERE PAIN 7-10 Last administered on 02/10/19 10:32; Admin Dose 2 MG; Start 02/05/19 at 06:00 Docusate Sodium (Colace) 250 mg DAILY PO Last administered on 02/09/19 09:07; Admin Dose 250 MG; Start 02/05/19 at 10:00 Metoprolol Succinate (Toprol Xl) 100 mg DAILY PO ; Start 02/05/19 at 10:00 Metoclopramide HCl (Reglan) 5 mg Q6H PRN IV nausea/vomiting; Start 02/05/19 at 09:30 Hydralazine HCl (Apresoline) 10 mg Q6H PRN IV sbp>160; Start 02/05/19 at 09:30 Acetaminophen (Tylenol Supp) 650 mg Q6H PRN [place] FEVER Last administered on 02/05/19 18:28; Admin Dose 650 MG; Start 02/05/19 at 12:30 Pantoprazole (Protonix Tab) 40 mg DAILY@06 PO Last administered on 02/10/19 06:30; Admin Dose 40 MG; Start 02/09/19 at 06:00 Dextrose/Sodium Chloride 1,000 ml @ 125 mls/hr Q8H IV Last administered on 02/10/19 15:36; Admin Dose 125 MLS/HR; Start 02/09/19 at 12:00 BRONWYN FRAUSTO MD Feb 10, 2019 16:14
--- NOTE | 2019-02-10 18:01 | PN ---
Date/Time of Note Date/Time of Note DATE: 02/10/19 TIME: 17:57 Assessment/Plan VTE Prophylaxis Risk score (from Ns)>0 risk: 4 SCD applied (from Ns): Yes Pharmacological prophylaxis: other (scds) Lines/Catheters IV [facility] Type (from [facility]): Peripheral IV Assessment/Plan Hospital Course Assessment: Hepatic mass AFP: 3.60 CEA: 5.3 CA 199: >1000 Ca125: 31.1 MRI- Peripherally enhancing, cystic versus centrally necrotic 4.2 cm lesion is seen centrally within the liver, concerning for neoplasm. ERCP 02/06/2019 High-grade papillary stricture with proximal dilatation. Unsuccessful cannulation. Attempted precut access sphincterotomy resulted in tracking adjacent to the biliary tree. Reported coffee-ground emesis/melena- resolved Normocytic anemia Transaminitis - trending down Direct hyperbilirubinemia- resolved Epigastric/RUQ pain Fevers- resolved Sigmoid diverticulitis, mild Hypokalemia-replaced History of cholecystectomy History of Renal stone -S/p lithotripsy Hypertension Dyslipidemia Urinary retention Plan: Dr. Davila consulted to see if patient is a surgical candidate. Advance diet as tolerated Liver bx-completed today- results pending May consider rendezvous procedure at a later date. PPI daily Patient seen in collaboration with Dr. Nieves Subjective: Course reviewed with nursing staff Patient interviewed and examined All labs, imaging and other results reviewed No apparent distress, pt with very poor appetite will add BOOST TID and PRN.No c/o n/v or abd pain PHYSICAL EXAMINATION: GENERAL: Alert & oriented x 3, SKIN: No lesions. HEAD: Normocephalic, atraumatic, no tenderness. EYES: Pupils equal reactive to light and accommodation, no discharge. EARS/NOSE AND THROAT: Ears normal, nose normal. NECK: Supple, no masses. CHEST: Inspection within normal limits. CARDIOVASCULAR: Heart: Regular rate and rhythm RESPIRATORY: Lungs clear to auscultation GASTROINTESTINAL AND LIVER: Abdomen: Soft, epigastric and right-sided pain- improved, non-distended, no hernias, normoactive bowel sounds. Rectal: Deferred. EXTREMITIES: No cyanosis, clubbing or edema. Result Diagram: 02/10/19 0612 02/10/19 0612 Results 24hrs Laboratory Tests Test 02/10/19 06:12 White Blood Count 13.4 H Red Blood Count 3.39 L Hemoglobin 10.1 L Hematocrit 30.7 L Mean Corpuscular Volume 90.6 Mean Corpuscular Hemoglobin 29.8 Mean Corpuscular Hemoglobin Concent 32.9 Red Cell Distribution Width 17.2 H Platelet Count 208 Mean Platelet Volume 10.8 H Immature Granulocytes % 1.300 H Neutrophils % 85.1 H Lymphocytes % 7.1 L Monocytes % 6.2 Eosinophils % 0.0 Basophils % 0.3 Nucleated Red Blood Cells % 0.0 Immature Granulocytes # 0.170 H Neutrophils # 11.4 H Lymphocytes # 1.0 Monocytes # 0.8 Eosinophils # 0.0 Basophils # 0.0 Nucleated Red Blood Cells # 0.0 Sodium Level 141 Potassium Level 3.5 Chloride Level 110 Carbon Dioxide Level 26 Anion Gap 5 Blood Urea Nitrogen 11 Creatinine 0.57 Est Glomerular Filtrat Rate mL/min Glucose Level 143 # Calcium Level 9.6 Magnesium Level 1.9 Exam/Review of Systems Exam Vitals Vital Signs Date Temp Pulse Resp B/P (MAP) Pulse Ox O2 O2 Flow FiO2 Time Delivery Rate 02/10/19 98.1 79 18 131/67 100 17:35 (88) 02/10/19 Nasal 2.0 08:00 Cannula Intake and Output 02/09/19 02/09/19 02/10/19 1515:00 23:00 07:00 IntakeIntake Total 320 ml 550 ml 1400 ml OutputOutput Total 170 ml 75 ml BalanceBalance 320 ml 380 ml 1325 ml Results Results 24hrs Laboratory Tests Test 02/10/19 06:12 White Blood Count 13.4 H Red Blood Count 3.39 L Hemoglobin 10.1 L Hematocrit 30.7 L Mean Corpuscular Volume 90.6 Mean Corpuscular Hemoglobin 29.8 Mean Corpuscular Hemoglobin Concent 32.9 Red Cell Distribution Width 17.2 H Platelet Count 208 Mean Platelet Volume 10.8 H Immature Granulocytes % 1.300 H Neutrophils % 85.1 H Lymphocytes % 7.1 L Monocytes % 6.2 Eosinophils % 0.0 Basophils % 0.3 Nucleated Red Blood Cells % 0.0 Immature Granulocytes # 0.170 H Neutrophils # 11.4 H Lymphocytes # 1.0 Monocytes # 0.8 Eosinophils # 0.0 Basophils # 0.0 Nucleated Red Blood Cells # 0.0 Sodium Level 141 Potassium Level 3.5 Chloride Level 110 Carbon Dioxide Level 26 Anion Gap 5 Blood Urea Nitrogen 11 Creatinine 0.57 Est Glomerular Filtrat Rate mL/min Glucose Level 143 # Calcium Level 9.6 Magnesium Level 1.9 Medications Medication Current Medications Piperacillin Sod/ Tazobactam Sod 100 ml @ 200 mls/hr Q6 IVPB Last administered on 02/10/19 15:37; Admin Dose 200 MLS/HR; Start 02/05/19 at 06:00 IV Flush (NS 3 ml) 3 ml PER PROTOCOL IV ; Start 02/05/19 at 06:00 Ondansetron HCl (Zofran Inj) 4 mg Q6H PRN IV NAUSEA/VOMITING Last administered on 02/10/19 06:41; Admin Dose 4 MG; Start 02/05/19 at 06:00 Acetaminophen (Tylenol Tab) 650 mg Q6H PRN PO .PAIN 1-3 OR TEMP Last administered on 02/10/19 03:22; Admin Dose 650 MG; Start 02/05/19 at 06:00 Morphine Sulfate (morphine) 2 mg Q4H PRN IV .SEVERE PAIN 7-10 Last administered on 02/10/19 17:04; Admin Dose 2 MG; Start 02/05/19 at 06:00 Docusate Sodium (Colace) 250 mg DAILY PO Last administered on 02/09/19 09:07; Admin Dose 250 MG; Start 02/05/19 at 10:00 Metoprolol Succinate (Toprol Xl) 100 mg DAILY PO ; Start 02/05/19 at 10:00 Metoclopramide HCl (Reglan) 5 mg Q6H PRN IV nausea/vomiting; Start 02/05/19 at 09:30 Hydralazine HCl (Apresoline) 10 mg Q6H PRN IV sbp>160; Start 02/05/19 at 09:30 Acetaminophen (Tylenol Supp) 650 mg Q6H PRN [place] FEVER Last administered on 02/05/19 18:28; Admin Dose 650 MG; Start 02/05/19 at 12:30 Pantoprazole (Protonix Tab) 40 mg DAILY@06 PO Last administered on 02/10/19 06:30; Admin Dose 40 MG; Start 02/09/19 at 06:00 Dextrose/Sodium Chloride 1,000 ml @ 125 mls/hr Q8H IV Last administered on 02/10/19 15:36; Admin Dose 125 MLS/HR; Start 02/09/19 at 12:00 MENDY WONG Feb 10, 2019 18:01
[2019-02-11] MEDS: PIPER-TAZO 3.375 GM IV (PMX) 100 ML IVPB SCH ×4 (01:13→18:53)
[2019-02-11] MEDS: morphine 2 MG INJ IV PRN ×2 (01:33→05:56)
[2019-02-11] MEDS: DEXTROSE 5%-0.45% NACL 1,000 ML IV SCH ×4 (01:40→20:00)
[2019-02-11] MEDS: PANTOPRAZOLE (EC) 40 MG TAB PO SCH (05:56)
[2019-02-11 07:29] VITALS: BP 128/59; PULSE 86; RESP 18
[2019-02-11] MEDS: DOCUSATE SODIUM 250 MG CAP PO SCH (09:00)
[2019-02-11] MEDS: METOPROLOL (XL) 100 MG TAB PO SCH (09:00)
[2019-02-11] MEDS: morphine LIQ (10 MG/5 ML) CUP PO PRN ×4 (10:49→22:12)
--- NOTE | 2019-02-11 11:24 | PN ---
Date/Time of Note Date/Time of Note DATE: 02/11/19 TIME: 11:18 Assessment/Plan VTE Prophylaxis Risk score (from Ns)>0 risk: 4 SCD applied (from Ns): Yes Pharmacological prophylaxis: other (scds) Lines/Catheters IV [facility] Type (from [facility]): Peripheral IV Assessment/Plan Hospital Course Assessment: Hepatic mass AFP: 3.60 CEA: 5.3 CA 199: >1000 Ca125: 31.1 MRI- Peripherally enhancing, cystic versus centrally necrotic 4.2 cm lesion is seen centrally within the liver, concerning for neoplasm. ERCP 02/06/2019 High-grade papillary stricture with proximal dilatation. Unsuccessful cannulation. Attempted precut access sphincterotomy resulted in tracking adjacent to the biliary tree. Reported coffee-ground emesis/melena- resolved Normocytic anemia Transaminitis - trending down Direct hyperbilirubinemia- resolved Epigastric/RUQ pain Fevers- resolved Sigmoid diverticulitis, mild Hypokalemia-replaced History of cholecystectomy History of Renal stone -S/p lithotripsy Hypertension Dyslipidemia Urinary retention Plan: Dr. Davila consulted to see if patient is a surgical candidate. Diet as tolerated Liver bx-completed today- results pending - called pathology will be ready later today or tomorrow May consider rendezvous procedure at a later date. PPI daily Patient seen in collaboration with Dr. Nieves Subjective: Course reviewed with nursing staff Patient interviewed and examined All labs, imaging and other results reviewed No ovr night events, pt/family awaiting bx results encourage PO intake. PHYSICAL EXAMINATION: GENERAL: Alert & oriented x 3, SKIN: No lesions. HEAD: Normocephalic, atraumatic, no tenderness. EYES: Pupils equal reactive to light and accommodation, no discharge. EARS/NOSE AND THROAT: Ears normal, nose normal. NECK: Supple, no masses. CHEST: Inspection within normal limits. CARDIOVASCULAR: Heart: Regular rate and rhythm RESPIRATORY: Lungs clear to auscultation GASTROINTESTINAL AND LIVER: Abdomen: Soft, epigastric and right-sided pain- improved, non-distended, no hernias, normoactive bowel sounds. Rectal: Deferred. EXTREMITIES: No cyanosis, clubbing or edema. Result Diagram: 02/10/1961102/10/19 0612 Exam/Review of Systems Exam Vitals Vital Signs Date Temp Pulse Resp B/P (MAP) Pulse Ox O2 O2 Flow FiO2 Time Delivery Rate 02/11/19 98.1 86 18 128/59 97 Nasal 07:29 (82) Cannula 02/11/19 2.0 02:12 Intake and Output 02/10/19 02/10/19 02/11/19 1515:00 23:00 07:00 IntakeIntake Total 200 ml 1240 ml OutputOutput Total 90 ml 130 ml 160 ml BalanceBalance -90 ml 70 ml 1080 ml Medications Medication Current Medications Piperacillin Sod/ Tazobactam Sod 100 ml @ 200 mls/hr Q6 IVPB Last administered on 02/11/19 05:56; Admin Dose 200 MLS/HR; Start 02/05/19 at 06:00 IV Flush (NS 3 ml) 3 ml PER PROTOCOL IV ; Start 02/05/19 at 06:00 Ondansetron HCl (Zofran Inj) 4 mg Q6H PRN IV NAUSEA/VOMITING Last administered on 02/10/19 06:41; Admin Dose 4 MG; Start 02/05/19 at 06:00 Acetaminophen (Tylenol Tab) 650 mg Q6H PRN PO .PAIN 1-3 OR TEMP Last administered on 02/10/19 03:22; Admin Dose 650 MG; Start 02/05/19 at 06:00 Morphine Sulfate (morphine) 2 mg Q4H PRN IV .SEVERE PAIN 7-10 Last administered on 02/11/19 05:56; Admin Dose 2 MG; Start 02/05/19 at 06:00 Docusate Sodium (Colace) 250 mg DAILY PO Last administered on 02/09/19 09:07; Admin Dose 250 MG; Start 02/05/19 at 10:00 Metoprolol Succinate (Toprol Xl) 100 mg DAILY PO ; Start 02/05/19 at 10:00 Metoclopramide HCl (Reglan) 5 mg Q6H PRN IV nausea/vomiting; Start 02/05/19 at 09:30 Hydralazine HCl (Apresoline) 10 mg Q6H PRN IV sbp>160; Start 02/05/19 at 09:30 Acetaminophen (Tylenol Supp) 650 mg Q6H PRN [place] FEVER Last administered on 02/05/19 18:28; Admin Dose 650 MG; Start 02/05/19 at 12:30 Pantoprazole (Protonix Tab) 40 mg DAILY@06 PO Last administered on 02/11/19at 05:56; Admin Dose 40 MG; Start 02/09/19 at 06:00 Dextrose/Sodium Chloride 1,000 ml @ 125 mls/hr Q8H IV Last administered on 02/11/19at 01:40; Admin Dose 125 MLS/HR; Start 02/09/19 at 12:00 Morphine Sulfate (morphine) 10 mg Q4H PRN PO SEVERE PAIN LEVEL 7-10 Last administered on 02/11/19at 10:49; Admin Dose 10 MG; Start 02/11/19 at 10:30 MENDY WONG Feb 11, 2019 11:24
--- NOTE | 2019-02-11 13:25 | CONS ---
Assessment/Plan Assessment/Plan Hospital Course (Demo Recall) #Liver mass #Biliary obstruction - s/p unsuccessful cannulation attempt #Pancreatic Cyst #HTN #Hyperlipidemia -follow up liver biopsy to be done today. There is a very high chance of malignancy especially given the elevated CA 19-9>1000 -s/p percutaneous biliary drainage. T bili now wnl -f/u Dr. Davila consul to see if patient is a surgical candidate. If not we would consider neoadjuvant chemotherapy based on the biopsy results -continue to monitor pancreatic cyst with serial imaging -continue current management of HTN, and HL per the primary team Thank you for the opportunity to participate in this patients care A total of 40 minutes of face to face time was spent speaking with the patient, of which greater than 50% was spent in counseling and coordination of care and the detailed question and answer session. Consultation Date/Type/Reason Admit Date/Time Feb 05, 2019 at 05:27 Initial Consult Date 02/07/19 Type of Consult oncology Reason for Consultation liver mass Requesting Provider: JENNIE JEAN BAPTISTE NP Date/Time of Note DATE: 02/11/19 TIME: 13:24 24 HR Interval Summary Free Text/Dictation no acute overnight events Exam/Review of Systems Exam Vitals Vital Signs Date Temp Pulse Resp B/P (MAP) Pulse Ox O2 O2 Flow FiO2 Time Delivery Rate 02/11/19 Nasal 2.0 08:00 Cannula 02/11/19 98.1 86 18 128/59 97 07:29 (82) Intake and Output 02/10/19 02/10/19 02/11/19 1515:00 23:00 07:00 IntakeIntake Total 200 ml 1240 ml OutputOutput Total 90 ml 130 ml 160 ml BalanceBalance -90 ml 70 ml 1080 ml Constitutional: alert, oriented Psych: depression Head: normocephalic Eyes: nl conjunctiva ENMT: nl external ears & nose Neck: supple Respiratory: clear to auscultation Cardiovascular: regular rate and rhythm Gastrointestinal: soft, other (percutaneous biliary drain in place) Musculoskeletal: nl extremities to inspection Results Result Diagram: 02/10/1961102/10/19611 Medications Medication Current Medications Piperacillin Sod/ Tazobactam Sod 100 ml @ 200 mls/hr Q6 IVPB Last administered on 02/11/19at 05:56; Admin Dose 200 MLS/HR; Start 02/05/19 at 06:00 IV Flush (NS 3 ml) 3 ml PER PROTOCOL IV ; Start 02/05/19 at 06:00 Ondansetron HCl (Zofran Inj) 4 mg Q6H PRN IV NAUSEA/VOMITING Last administered on 02/10/19 06:41; Admin Dose 4 MG; Start 02/05/19 at 06:00 Acetaminophen (Tylenol Tab) 650 mg Q6H PRN PO .PAIN 1-3 OR TEMP Last administered on 02/10/19 03:22; Admin Dose 650 MG; Start 02/05/19 at 06:00 Morphine Sulfate (morphine) 2 mg Q4H PRN IV .SEVERE PAIN 7-10 Last administered on 02/11/19 05:56; Admin Dose 2 MG; Start 02/05/19 at 06:00 Docusate Sodium (Colace) 250 mg DAILY PO Last administered on 02/09/19 09:07; Admin Dose 250 MG; Start 02/05/19 at 10:00 Metoprolol Succinate (Toprol Xl) 100 mg DAILY PO ; Start 02/05/19 at 10:00 Metoclopramide HCl (Reglan) 5 mg Q6H PRN IV nausea/vomiting; Start 02/05/19 at 09:30 Hydralazine HCl (Apresoline) 10 mg Q6H PRN IV sbp>160; Start 02/05/19 at 09:30 Acetaminophen (Tylenol Supp) 650 mg Q6H PRN [place] FEVER Last administered on 02/05/19 18:28; Admin Dose 650 MG; Start 02/05/19 at 12:30 Pantoprazole (Protonix Tab) 40 mg DAILY@06 PO Last administered on 02/11/19 05:56; Admin Dose 40 MG; Start 02/09/19 at 06:00 Dextrose/Sodium Chloride 1,000 ml @ 125 mls/hr Q8H IV Last administered on 02/11/19 01:40; Admin Dose 125 MLS/HR; Start 02/09/19 at 12:00 Morphine Sulfate (morphine) 10 mg Q4H PRN PO SEVERE PAIN LEVEL 7-10 Last administered on 02/11/19 10:49; Admin Dose 10 MG; Start 02/11/19 at 10:30 MARK FORREST M.D. Feb 11, 2019 13:25
[2019-02-11 14:00] VITALS: BP 141/74; PULSE 84; RESP 18
--- NOTE | 2019-02-11 14:29 | PN ---
Date/Time of Note Date/Time of Note DATE: 02/11/19 TIME: 14:27 Assessment/Plan VTE Prophylaxis Risk score (from Nsg)>0 risk: 4 SCD applied (from Nsg): Yes Pharmacological prophylaxis: heparin Lines/Catheters IV Catheter Type (from Nrsg): Peripheral IV Assessment/Plan Hospital Course Calm, comfortable No distress RRR CTAB RUQ biliary drain in place Abdomen soft nt nd Ext without edema ASSESSMENT AND PLAN:84 yo F w/htn,dlp,cholecystectomy,renal stones, lithotripsy here w/ coffee-ground emesis, epigastric/right-sided abdominal pain, and black tarry stoolx 1mos duration and found to have intrahepatic mass with biliary dilitation concerning for malignancy Hepatic mass W/Biliary obstruction -CT also noted for hepatic ductal obstruction with intrahepatic duct dilatation bilaterally, concerning for cholangiocarcinoma - s/p biopsy Transaminase elevation with hyperbilirubinemia secondary to above -Attempted ERCP 02/06/2019, unsuccessful. s/p Percutaneous biliary drainage. DVT prophylaxis: SCDs PUD prophylaxis: Protonix CODE STATUS: Full code Diet: N.p.o.except meds Disposition: Follow-up GI/oncology/HBS recommendations. Result Diagram: 02/10/19 0612 02/10/19 0612 Subjective 24 Hr Interval Summary Free Text/Dictation Biopsy was performed yesterday Contiues to have great deal of RUQ pain Didn't sleep all night Exam/Review of Systems Exam Vitals Vital Signs Date Temp Pulse Resp B/P (MAP) Pulse Ox O2 O2 Flow FiO2 Time Delivery Rate 02/11/19 98.5 84 18 141/74 96 Nasal 14:00 (96) Cannula 02/11/19 2.0 08:00 Intake and Output 02/10/19 02/10/19 02/11/19 1515:00 23:00 07:00 IntakeIntake Total 200 ml 1240 ml OutputOutput Total 90 ml 130 ml 160 ml BalanceBalance -90 ml 70 ml 1080 ml Medications Medication Current Medications Piperacillin Sod/ Tazobactam Sod 100 ml @ 200 mls/hr Q6 IVPB Last administered on 02/11/19at 14:02; Admin Dose 200 MLS/HR; Start 02/05/19 at 06:00 IV Flush (NS 3 ml) 3 ml PER PROTOCOL IV ; Start 02/05/19 at 06:00 Ondansetron HCl (Zofran Inj) 4 mg Q6H PRN IV NAUSEA/VOMITING Last administered on 02/10/19 06:41; Admin Dose 4 MG; Start 02/05/19 at 06:00 Acetaminophen (Tylenol Tab) 650 mg Q6H PRN PO .PAIN 1-3 OR TEMP Last administered on 02/10/19 03:22; Admin Dose 650 MG; Start 02/05/19 at 06:00 Morphine Sulfate (morphine) 2 mg Q4H PRN IV .SEVERE PAIN 7-10 Last administered on 02/11/19 05:56; Admin Dose 2 MG; Start 02/05/19 at 06:00 Docusate Sodium (Colace) 250 mg DAILY PO Last administered on 02/09/19 09:07; Admin Dose 250 MG; Start 02/05/19 at 10:00 Metoprolol Succinate (Toprol Xl) 100 mg DAILY PO ; Start 02/05/19 at 10:00 Metoclopramide HCl (Reglan) 5 mg Q6H PRN IV nausea/vomiting; Start 02/05/19 at 09:30 Hydralazine HCl (Apresoline) 10 mg Q6H PRN IV sbp>160; Start 02/05/19 at 09:30 Acetaminophen (Tylenol Supp) 650 mg Q6H PRN [place] FEVER Last administered on 02/05/19 18:28; Admin Dose 650 MG; Start 02/05/19 at 12:30 Pantoprazole (Protonix Tab) 40 mg DAILY@06 PO Last administered on 02/11/19 05:56; Admin Dose 40 MG; Start 02/09/19 at 06:00 Dextrose/Sodium Chloride 1,000 ml @ 125 mls/hr Q8H IV Last administered on 02/11/19 01:40; Admin Dose 125 MLS/HR; Start 02/09/19 at 12:00 Morphine Sulfate (morphine) 10 mg Q4H PRN PO SEVERE PAIN LEVEL 7-10 Last administered on 02/11/19 14:03; Admin Dose 10 MG; Start 02/11/19 at 10:30 BRONWYN FRAUSTO MD Feb 11, 2019 14:28
[2019-02-11 20:00] VITALS: BP 121/65; PULSE 82; RESP 17
[2019-02-12] MEDS: DEXTROSE 5%-0.45% NACL 1,000 ML IV SCH ×2 (00:21→04:00)
[2019-02-12] MEDS: PIPER-TAZO 3.375 GM IV (PMX) 100 ML IVPB SCH ×2 (00:21→06:23)
[2019-02-12 02:00] VITALS: BP 127/57; PULSE 87; RESP 18
[2019-02-12] MEDS: morphine LIQ (10 MG/5 ML) CUP PO PRN ×4 (02:02→14:39)
[2019-02-12] MEDS: PANTOPRAZOLE (EC) 40 MG TAB PO SCH (06:23)
[2019-02-12 07:43] VITALS: BP 109/53; PULSE 86; RESP 18
[2019-02-12] MEDS: DOCUSATE SODIUM 250 MG CAP PO SCH (08:37)
[2019-02-12] MEDS: METOPROLOL (XL) 100 MG TAB PO SCH (08:38)
[2019-02-12] MEDS ORDERED: POTASSIUM CHLORIDE (SR) 20 MEQ TAB PO STA (09:40)
[2019-02-12] MEDS ORDERED: IBUPROFEN 600 MG TAB PO PRN (10:30)
[2019-02-12] MEDS: POTASSIUM CHLORIDE 100 ML IVPB SCH ×2 (11:06→16:18)
--- NOTE | 2019-02-12 11:09 | PN ---
Date/Time of Note Date/Time of Note DATE: 02/12/19 TIME: 11:05 Assessment/Plan VTE Prophylaxis Risk score (from Ns)>0 risk: 4 SCD applied (from Ns): Yes Pharmacological prophylaxis: other (scds) Lines/Catheters IV Catheter Type (from [facility]): Peripheral IV Assessment/Plan Hospital Course Assessment: Hepatic mass AFP: 3.60 CEA: 5.3 CA 199: >1000 Ca125: 31.1 MRI- Peripherally enhancing, cystic versus centrally necrotic 4.2 cm lesion is seen centrally within the liver, concerning for neoplasm. ERCP 02/06/2019 High-grade papillary stricture with proximal dilatation. Unsuccessful cannulation. Attempted precut access sphincterotomy resulted in tracking adjacent to the biliary tree. Reported coffee-ground emesis/melena- resolved Normocytic anemia Transaminitis - trending down Direct hyperbilirubinemia- resolved Epigastric/RUQ pain Fevers- resolved Sigmoid diverticulitis, mild Hypokalemia-replaced History of cholecystectomy History of Renal stone -S/p lithotripsy Hypertension Dyslipidemia Urinary retention Plan: Preliminary liver bx- Adenocarcinoma, moderately-differentiated, with focal necrosis. F/u oncology recommendations GI will sign off at this time, but will be available upon reconsult as needed May consider rendezvous procedure at a later date. PPI daily Patient seen in collaboration with Dr. Nieves Subjective: Course reviewed with nursing staff Patient interviewed and examined All labs, imaging and other results reviewed Pt resting in bed, no c/o n/v poor appetite PHYSICAL EXAMINATION: GENERAL: Alert & oriented x 3, SKIN: No lesions. HEAD: Normocephalic, atraumatic, no tenderness. EYES: Pupils equal reactive to light and accommodation, no discharge. EARS/NOSE AND THROAT: Ears normal, nose normal. NECK: Supple, no masses. CHEST: Inspection within normal limits. CARDIOVASCULAR: Heart: Regular rate and rhythm RESPIRATORY: Lungs clear to auscultation GASTROINTESTINAL AND LIVER: Abdomen: Soft, epigastric and right-sided pain- improved, non-distended, no hernias, normoactive bowel sounds. Rectal: Deferred. EXTREMITIES: No cyanosis, clubbing or edema. Result Diagram: 02/10/19 0612 02/12/19 0708 Results 24hrs Laboratory Tests Test 02/12/19 07:08 Sodium Level 141 Potassium Level 2.7 *L Chloride Level 108 Carbon Dioxide Level 27 Anion Gap 6 Blood Urea Nitrogen 3 L Creatinine 0.48 Est Glomerular Filtrat Rate mL/min Glucose Level 121 Calcium Level 9.3 Total Bilirubin 0.6 Direct Bilirubin 0.00 Indirect Bilirubin 0.6 Aspartate Amino Transf (AST/SGOT) 42 Alanine Aminotransferase (ALT/SGPT) 27 Alkaline Phosphatase 188 H Total Protein 5.7 L Albumin 2.5 L Globulin 3.20 Albumin/Globulin Ratio 0.78 Exam/Review of Systems Exam Vitals Vital Signs Date Temp Pulse Resp B/P (MAP) Pulse Ox O2 O2 Flow FiO2 Time Delivery Rate 02/12/19 98.6 86 18 109/53 95 Room Air 07:43 (71) 02/12/19 2.0 01:16 Intake and Output 02/11/19 02/11/19 02/12/19 1515:00 23:00 07:00 IntakeIntake Total 340 ml 220 ml 1000 ml OutputOutput Total 130 ml 170 ml BalanceBalance 210 ml 220 ml 830 ml Results Results 24hrs Laboratory Tests Test 02/12/19 07:08 Sodium Level 141 Potassium Level 2.7 *L Chloride Level 108 Carbon Dioxide Level 27 Anion Gap 6 Blood Urea Nitrogen 3 L Creatinine 0.48 Est Glomerular Filtrat Rate mL/min Glucose Level 121 Calcium Level 9.3 Total Bilirubin 0.6 Direct Bilirubin 0.00 Indirect Bilirubin 0.6 Aspartate Amino Transf (AST/SGOT) 42 Alanine Aminotransferase (ALT/SGPT) 27 Alkaline Phosphatase 188 H Total Protein 5.7 L Albumin 2.5 L Globulin 3.20 Albumin/Globulin Ratio 0.78 Medications Medication Current Medications Piperacillin Sod/ Tazobactam Sod 100 ml @ 200 mls/hr Q6 IVPB Last administered on 02/12/19at 06:23; Admin Dose 200 MLS/HR; Start 02/05/19 at 06:00 IV Flush (NS 3 ml) 3 ml PER PROTOCOL IV ; Start 02/05/19 at 06:00 Ondansetron HCl (Zofran Inj) 4 mg Q6H PRN IV NAUSEA/VOMITING Last administered on 02/10/19 06:41; Admin Dose 4 MG; Start 02/05/19 at 06:00 Acetaminophen (Tylenol Tab) 650 mg Q6H PRN PO .PAIN 1-3 OR TEMP Last administered on 02/10/19 03:22; Admin Dose 650 MG; Start 02/05/19 at 06:00 Morphine Sulfate (morphine) 2 mg Q4H PRN IV .SEVERE PAIN 7-10 Last administered on 02/11/19 05:56; Admin Dose 2 MG; Start 02/05/19 at 06:00 Docusate Sodium (Colace) 250 mg DAILY PO Last administered on 02/12/19 08:37; Admin Dose 250 MG; Start 02/05/19 at 10:00 Metoprolol Succinate (Toprol Xl) 100 mg DAILY PO ; Start 02/05/19 at 10:00 Metoclopramide HCl (Reglan) 5 mg Q6H PRN IV nausea/vomiting; Start 02/05/19 at 09:30 Hydralazine HCl (Apresoline) 10 mg Q6H PRN IV sbp>160; Start 02/05/19 at 09:30 Acetaminophen (Tylenol Supp) 650 mg Q6H PRN [place] FEVER Last administered on 02/05/19 18:28; Admin Dose 650 MG; Start 02/05/19 at 12:30 Pantoprazole (Protonix Tab) 40 mg DAILY@06 PO Last administered on 02/12/19 06:23; Admin Dose 40 MG; Start 02/09/19 at 06:00 Dextrose/Sodium Chloride 1,000 ml @ 125 mls/hr Q8H IV Last administered on 02/12/19 00:21; Admin Dose 125 MLS/HR; Start 02/09/19 at 12:00 Morphine Sulfate (morphine) 10 mg Q4H PRN PO SEVERE PAIN LEVEL 7-10 Last administered on 02/12/19at 10:29; Admin Dose 10 MG; Start 02/11/19 at 10:30 Potassium Chloride 100 ml @ 25 mls/hr Q2H IVPB ; Start 02/12/19 at 10:30; Stop 02/12/19 at 14:29 Ibuprofen (Motrin) 600 mg Q6H PRN PO MILD PAIN LEVEL 1-3; Start 02/12/19 at 10:30 MENDY WONG Feb 12, 2019 11:09
--- NOTE | 2019-02-12 13:29 | CONS ---
Assessment/Plan Assessment/Plan Hospital Course (Demo Recall) #Liver mass #Biliary obstruction - s/p unsuccessful cannulation attempt #Pancreatic Cyst #HTN #Hyperlipidemia -fliver bx consistent with cholangiocarcinoma. There is a very high chance of malignancy especially given the elevated CA 19-9>1000 -s/p percutaneous biliary drainage. -f/u Dr. Davila has evaluated the scan and states this would be a very complicated and extensive surgery that would need evaluation at a tertiary care center. -continue to monitor pancreatic cyst with serial imaging -continue current management of HTN, and HL per the primary team Thank you for the opportunity to participate in this patients care A total of 40 minutes of face to face time was spent speaking with the patient, of which greater than 50% was spent in counseling and coordination of care and the detailed question and answer session. Consultation Date/Type/Reason Admit Date/Time Feb 05, 2019 at 05:27 Initial Consult Date 02/07/19 Type of Consult oncology Reason for Consultation cholangiocarcinoma Requesting Provider: JENNIE JEAN BAPTISTE NP Date/Time of Note DATE: 02/12/19 TIME: 13:26 24 HR Interval Summary Free Text/Dictation percutaneous biliary drain placed today Exam/Review of Systems Exam Vitals Vital Signs Date Temp Pulse Resp B/P (MAP) Pulse Ox O2 O2 Flow FiO2 Time Delivery Rate 02/12/19 Nasal 2.0 10:30 Cannula 02/12/19 98.6 86 18 109/53 95 07:43 (71) Intake and Output 02/11/19 02/11/19 02/12/19 1515:00 23:00 07:00 IntakeIntake Total 340 ml 220 ml 1000 ml OutputOutput Total 130 ml 170 ml BalanceBalance 210 ml 220 ml 830 ml Constitutional: alert, oriented, frail Psych: anxiety, depression Head: normocephalic Eyes: nl conjunctiva ENMT: nl external ears & nose Neck: supple Respiratory: clear to auscultation Cardiovascular: regular rate and rhythm Gastrointestinal: soft Musculoskeletal: nl extremities to inspection Results Result Diagram: 02/10/19 0612 02/12/19 0708 Results 24hrs Laboratory Tests Test 02/12/19 07:08 Sodium Level 141 Potassium Level 2.7 *L Chloride Level 108 Carbon Dioxide Level 27 Anion Gap 6 Blood Urea Nitrogen 3 L Creatinine 0.48 Est Glomerular Filtrat Rate mL/min Glucose Level 121 Calcium Level 9.3 Total Bilirubin 0.6 Direct Bilirubin 0.00 Indirect Bilirubin 0.6 Aspartate Amino Transf (AST/SGOT) 42 Alanine Aminotransferase (ALT/SGPT) 27 Alkaline Phosphatase 188 H Total Protein 5.7 L Albumin 2.5 L Globulin 3.20 Albumin/Globulin Ratio 0.78 Medications Medication Current Medications IV Flush (NS 3 ml) 3 ml PER PROTOCOL IV ; Start 02/05/19 at 06:00 Ondansetron HCl (Zofran Inj) 4 mg Q6H PRN IV NAUSEA/VOMITING Last administered on 02/10/19 06:41; Admin Dose 4 MG; Start 02/05/19 at 06:00 Acetaminophen (Tylenol Tab) 650 mg Q6H PRN PO .PAIN 1-3 OR TEMP Last administered on 02/10/19 03:22; Admin Dose 650 MG; Start 02/05/19 at 06:00 Morphine Sulfate (morphine) 2 mg Q4H PRN IV .SEVERE PAIN 7-10 Last administered on 02/11/19 05:56; Admin Dose 2 MG; Start 02/05/19 at 06:00 Docusate Sodium (Colace) 250 mg DAILY PO Last administered on 02/12/19 08:37; Admin Dose 250 MG; Start 02/05/19 at 10:00 Metoprolol Succinate (Toprol Xl) 100 mg DAILY PO ; Start 02/05/19 at 10:00 Metoclopramide HCl (Reglan) 5 mg Q6H PRN IV nausea/vomiting; Start 02/05/19 at 09:30 Hydralazine HCl (Apresoline) 10 mg Q6H PRN IV sbp>160; Start 02/05/19 at 09:30 Acetaminophen (Tylenol Supp) 650 mg Q6H PRN [place] FEVER Last administered on 02/05/19 18:28; Admin Dose 650 MG; Start 02/05/19 at 12:30 Pantoprazole (Protonix Tab) 40 mg DAILY@06 PO Last administered on 02/12/19 06:23; Admin Dose 40 MG; Start 02/09/19 at 06:00 Morphine Sulfate (morphine) 10 mg Q4H PRN PO SEVERE PAIN LEVEL 7-10 Last administered on 02/12/19 10:29; Admin Dose 10 MG; Start 02/11/19 at 10:30 Potassium Chloride 100 ml @ 25 mls/hr Q2H IVPB Last administered on 02/12/19at 11:06; Admin Dose 25 MLS/HR; Start 02/12/19 at 10:30; Stop 02/12/19 at 14:29 Ibuprofen (Motrin) 600 mg Q6H PRN PO MILD PAIN LEVEL 1-3; Start 02/12/19 at 10:30 MARK FORREST M.D. Feb 12, 2019 13:29
[2019-02-12 14:05] VITALS: BP 122/61; PULSE 83; RESP 18
--- NOTE | 2019-02-12 14:44 | PN ---
Date/Time of Note Date/Time of Note DATE: 02/12/19 TIME: 14:41 Assessment/Plan VTE Prophylaxis Risk score (from Nsg)>0 risk: 4 SCD applied (from Nsg): Yes Pharmacological prophylaxis: heparin Lines/Catheters IV Catheter Type (from Nrsg): Peripheral IV Assessment/Plan Hospital Course Calm, comfortable No distress RRR CTAB RUQ biliary drain in place Abdomen with severe pain in RLQ Ext without edema ASSESSMENT AND PLAN:84 yo F w/htn,dlp,cholecystectomy,renal stones, lithotripsy here w/ coffee-ground emesis, epigastric/right-sided abdominal pain, and black tarry stoolx 1mos duration and found to have intrahepatic mass with biliary dilitation concerning for malignancy Hepatic mass W/Biliary obstruction -CT also noted for hepatic ductal obstruction with intrahepatic duct dilatation bilaterally, concerning for cholangiocarcinoma - s/p biopsy showing adenocarcinoma - Surgical management will have to be performed at tertiary center RLQ pain: - Will repeat scan to assess for alternative cause. She says pain started after biopsy Transaminase elevation with hyperbilirubinemia secondary to above -Attempted ERCP 02/06/2019, unsuccessful. s/p Percutaneous biliary drainage. - Bilis now normalized DVT prophylaxis: SCDs PUD prophylaxis: Protonix CODE STATUS: Full code Disposition: Follow-up GI/oncology/HBS recommendations. Result Diagram: 02/10/19 0612 02/12/19 0708 Results 24hrs Laboratory Tests Test 02/12/19 07:08 Sodium Level 141 Potassium Level 2.7 *L Chloride Level 108 Carbon Dioxide Level 27 Anion Gap 6 Blood Urea Nitrogen 3 L Creatinine 0.48 Est Glomerular Filtrat Rate mL/min Glucose Level 121 Calcium Level 9.3 Total Bilirubin 0.6 Direct Bilirubin 0.00 Indirect Bilirubin 0.6 Aspartate Amino Transf (AST/SGOT) 42 Alanine Aminotransferase (ALT/SGPT) 27 Alkaline Phosphatase 188 H Total Protein 5.7 L Albumin 2.5 L Globulin 3.20 Albumin/Globulin Ratio 0.78 Subjective 24 Hr Interval Summary Free Text/Dictation Having severe pain in RLQ Can't eat anything Continue need for morhpine which she prefers PO Exam/Review of Systems Exam Vitals Vital Signs Date Temp Pulse Resp B/P (MAP) Pulse Ox O2 O2 Flow FiO2 Time Delivery Rate 02/12/19 98.8 83 18 122/61 95 Nasal 14:05 (81) Cannula 02/12/19 2.0 10:30 Intake and Output 02/11/19 02/11/19 02/12/19 1515:00 23:00 07:00 IntakeIntake Total 340 ml 220 ml 1000 ml OutputOutput Total 130 ml 170 ml BalanceBalance 210 ml 220 ml 830 ml Results Results 24hrs Laboratory Tests Test 02/12/19 07:08 Sodium Level 141 Potassium Level 2.7 *L Chloride Level 108 Carbon Dioxide Level 27 Anion Gap 6 Blood Urea Nitrogen 3 L Creatinine 0.48 Est Glomerular Filtrat Rate mL/min Glucose Level 121 Calcium Level 9.3 Total Bilirubin 0.6 Direct Bilirubin 0.00 Indirect Bilirubin 0.6 Aspartate Amino Transf (AST/SGOT) 42 Alanine Aminotransferase (ALT/SGPT) 27 Alkaline Phosphatase 188 H Total Protein 5.7 L Albumin 2.5 L Globulin 3.20 Albumin/Globulin Ratio 0.78 Medications Medication Current Medications IV Flush (NS 3 ml) 3 ml PER PROTOCOL IV ; Start 02/05/19 at 06:00 Ondansetron HCl (Zofran Inj) 4 mg Q6H PRN IV NAUSEA/VOMITING Last administered on 02/10/19at 06:41; Admin Dose 4 MG; Start 02/05/19 at 06:00 Acetaminophen (Tylenol Tab) 650 mg Q6H PRN PO .PAIN 1-3 OR TEMP Last admi nistered on 02/10/19at 03:22; Admin Dose 650 MG; Start 02/05/19 at 06:00 Morphine Sulfate (morphine) 2 mg Q4H PRN IV .SEVERE PAIN 7-10 Last administered on 02/11/19at 05:56; Admin Dose 2 MG; Start 02/05/19 at 06:00 Docusate Sodium (Colace) 250 mg DAILY PO Last administered on 02/12/19 08:37; Admin Dose 250 MG; Start 02/05/19 at 10:00 Metoprolol Succinate (Toprol Xl) 100 mg DAILY PO ; Start 02/05/19 at 10:00 Metoclopramide HCl (Reglan) 5 mg Q6H PRN IV nausea/vomiting; Start 02/05/19 at 09:30 Hydralazine HCl (Apresoline) 10 mg Q6H PRN IV sbp>160; Start 02/05/19 at 09:30 Acetaminophen (Tylenol Supp) 650 mg Q6H PRN [place] FEVER Last administered on 02/05/19at 18:28; Admin Dose 650 MG; Start 02/05/19 at 12:30 Pantoprazole (Protonix Tab) 40 mg DAILY@06 PO Last administered on 02/12/19at 06:23; Admin Dose 40 MG; Start 02/09/19 at 06:00 Morphine Sulfate (morphine) 10 mg Q4H PRN PO SEVERE PAIN LEVEL 7-10 Last administered on 02/12/19at 14:39; Admin Dose 10 MG; Start 02/11/19 at 10:30 Ibuprofen (Motrin) 600 mg Q6H PRN PO MILD PAIN LEVEL 1-3; Start 02/12/19 at 10:30 BRONWYN FRAUSTO MD Feb 12, 2019 14:44
[2019-02-12] MEDS ORDERED: IOHEXOL 14.3 MG(I)/ML (ADULT) BTL PO ONE (15:00)
[2019-02-12] MEDS ORDERED: morphine (ER) 15 MG TAB PO SCH (15:00)
[2019-02-12] MEDS ORDERED: IBUPROFEN 400 MG TAB PO PRN (16:30)
[2019-02-12] MEDS: HYDROCODONE/APAP (5/325) TAB PO PRN ×2 (18:46→22:47)
[2019-02-12 20:00] VITALS: BP 158/63; PULSE 89; RESP 19
[2019-02-12] MEDS ORDERED: IOHEXOL 300MG/ML 150 ML BTL ONE (21:19)
[2019-02-12] MEDS ORDERED: SOD CHLORIDE 0.9% 100 ML ONE (21:19)
[2019-02-13 02:00] VITALS: BP 115/68; PULSE 92; RESP 17
[2019-02-13 03:25] VITALS: PULSE 87
[2019-02-13] MEDS: HYDROCODONE/APAP (5/325) TAB PO PRN ×5 (03:27→21:28)
[2019-02-13] MEDS: PANTOPRAZOLE (EC) 40 MG TAB PO SCH (05:11)
[2019-02-13 07:40] VITALS: BP 133/62; PULSE 83; RESP 18
[2019-02-13] MEDS: METOPROLOL (XL) 100 MG TAB PO SCH (07:42)
[2019-02-13] MEDS: DOCUSATE SODIUM 250 MG CAP PO SCH (07:42)
[2019-02-13 14:00] VITALS: BP 125/60; PULSE 86; RESP 18
--- NOTE | 2019-02-13 14:39 | PN ---
Date/Time of Note Date/Time of Note DATE: 02/13/19 TIME: 14:37 Assessment/Plan VTE Prophylaxis Risk score (from Nsg)>0 risk: 5 SCD applied (from Nsg): Yes Pharmacological prophylaxis: heparin Lines/Catheters IV Catheter Type (from Nrsg): Saline Lock Assessment/Plan Hospital Course Calm, comfortable No distress RRR CTAB RUQ biliary drain in place Abdomen with severe pain in RLQ Ext without edema ASSESSMENT AND PLAN:84 yo F w/htn,dlp,cholecystectomy,renal stones, lithotripsy here w/ coffee-ground emesis, epigastric/right-sided abdominal pain, and black tarry stoolx 1mos duration and found to have intrahepatic mass with biliary dilitation concerning for malignancy, now s/p PTC drain and 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 Course complicated by abdominal pain and CT showing possible abscess with diverticulum perforation Abdominal fluid collection with likely perforated diverticulum: - Started on IV zoysn - Consult general surgeon Dr Dallas Hepatic mass W/Biliary obstruction -CT also noted for hepatic ductal obstruction with intrahepatic duct dilatation bilaterally - s/p biopsy showing carcinoma - Surgical management will have to be performed at tertiary center Transaminase elevation with hyperbilirubinemia secondary to above -Attempted ERCP 02/06/2019, unsuccessful. s/p Percutaneous biliary drainage. - Bilis now normalized DVT prophylaxis: SCDs PUD prophylaxis: Protonix CODE STATUS: Full code Disposition: Follow-up GI/oncology/HBS recommendations. Result Diagram: 02/10/19 0612 02/12/19 0708 Subjective 24 Hr Interval Summary Free Text/Dictation CT shows fluid collectoin and air with likely perforated diverticulum. Started on Zosyn Still with abdominal pain Exam/Review of Systems Exam Vitals Vital Signs Date Temp Pulse Resp B/P (MAP) Pulse Ox O2 O2 Flow FiO2 Time Delivery Rate 02/13/19 98.5 83 18 133/62 98 Nasal 07:40 (85) Cannula 02/13/19 2.0 02:26 Intake and Output 02/12/19 02/12/19 02/13/19 1515:00 23:00 07:00 IntakeIntake Total 100 ml OutputOutput Total 100 ml 180 ml BalanceBalance 0 ml -180 ml Medications Medication Current Medications IV Flush (NS 3 ml) 3 ml PER PROTOCOL IV ; Start 02/05/19 at 06:00 Ondansetron HCl (Zofran Inj) 4 mg Q6H PRN IV NAUSEA/VOMITING Last administered on 02/10/19 06:41; Admin Dose 4 MG; Start 02/05/19 at 06:00 Acetaminophen (Tylenol Tab) 650 mg Q6H PRN PO .PAIN 1-3 OR TEMP Last administered on 02/10/19 03:22; Admin Dose 650 MG; Start 02/05/19 at 06:00 Docusate Sodium (Colace) 250 mg DAILY PO Last administered on 02/13/19 07:42; Admin Dose 250 MG; Start 02/05/19 at 10:00 Metoprolol Succinate (Toprol Xl) 100 mg DAILY PO ; Start 02/05/19 at 10:00 Metoclopramide HCl (Reglan) 5 mg Q6H PRN IV nausea/vomiting; Start 02/05/19 at 09:30 Hydralazine HCl (Apresoline) 10 mg Q6H PRN IV sbp>160; Start 02/05/19 at 09:30 Acetaminophen (Tylenol Supp) 650 mg Q6H PRN [place] FEVER Last administered on 02/05/19 18:28; Admin Dose 650 MG; Start 02/05/19 at 12:30 Pantoprazole (Protonix Tab) 40 mg DAILY@06 PO Last administered on 02/13/19 05:11; Admin Dose 40 MG; Start 02/09/19 at 06:00 Ibuprofen (Motrin) 600 mg Q6H PRN PO MILD PAIN LEVEL 1-3; Start 02/12/19 at 10:30 Acetaminophen/ Hydrocodone Bitart (Perkins (5/325)) 1 tab Q4H PRN PO MODERATE PAIN LEVEL 4-6 Last administered on 02/13/19 11:49; Admin Dose 1 TAB; Start 02/12/19 at 16:30 Ibuprofen (Motrin) 400 mg Q6H PRN PO MILD PAIN(1-3) OR TEMP>38C; Start 02/12/19 at 16:30 Polyethylene Glycol (Miralax) 17 gm BID PO ; Start 02/13/19 at 21:00 Piperacillin Sod/ Tazobactam Sod 100 ml @ 25 mls/hr TID@02,10,18 IVPB ; Start 02/13/19 at 14:00; Stop 02/20/19 at 13:59 BRONWYN FRAUSTO MD Feb 13, 2019 14:39
[2019-02-13] MEDS: PIPER-TAZO 3.375 GM IV (PMX) 100 ML IVPB SCH ×2 (17:06→18:00)
[2019-02-13] MEDS: LACTATED RINGER'S 1,000 ML IV SCH (17:13)
--- NOTE | 2019-02-13 19:57 | CONS ---
Assessment/Plan Assessment/Plan Assessment/Plan (Daily) Continue medical management. There are no new surgical recommendations at this time Consultation Date/Type/Reason Admit Date/Time Feb 05, 2019 at 05:27 Date of Consultation: Feb 13, 2019 Type of Consult General surgery Reason for Consultation Possible diverticulitis with microperforation and abscess Date/Time of Note DATE: 02/13/19 TIME: 19:53 Hx of Present Illness The patient is an 84-year-old Chinese speaking female who was admitted with abdominal pain. She was found to have a neoplasm in the center of her liver. 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 She is also undergone successful ERCP with stenting and CT drainage of the necrotic liver mass. She is hemodynamically stable. I have been asked to see her in regards to a possibl e sigmoid diverticulitis with abscess but I do not see any imaging studies indicating that. Review of systems: Head ears eyes nose and throat unremarkable Pulmonary: No evidence of asthma, pneumonia or shortness of breath Cardiac: No history of chest pain TX or arrhythmia Abdomen as in the HPI Past Medical History Home Meds Reported Medications Tamsulosin Hcl* (Flomax*) 0.4 Mg Cap.er.24h, 0.4 MG PO DAILY, CAP 02/05/19 Docusate Sodium* (Dok*) 250 Mg Capsule, 250 MG PO DAILY, #30 CAP 02/05/19 Esomeprazole Mag Trihydrate (Nexium) 40 Mg Capsule.dr, 40 MG PO DAILY, #30 CAP 02/05/19 Potassium Chloride* (K-Dur*) 10 Meq Tab.prt.sr, 10 MEQ PO TID, TAB 02/05/19 Atorvastatin Calcium (Atorvastatin Calcium) 10 Mg Tablet, 10 MG PO QHS, #30 TAB 02/05/19 Aspirin (Low Dose Aspirin) 81 Mg Tablet.dr, 81 MG PO DAILY, #30 TAB 02/05/19 Amlodipine Besylate* (Amlodipine Besylate*) 10 Mg Tablet, 10 MG PO BID, #30 TAB 02/05/19 Metoprolol Succinate* (Toprol XL*) 100 Mg Tab.sr.24h, 100 MG PO DAILY, #30 TAB 02/05/19 Benazepril Hcl* (Benazepril Hcl*) 20 Mg Tablet, 20 MG PO BID, #60 TAB 02/05/19 Medications Current Medications IV Flush (NS 3 ml) 3 ml PER PROTOCOL IV ; Start 02/05/19 at 06:00 Ondansetron HCl (Zofran Inj) 4 mg Q6H PRN IV NAUSEA/VOMITING Last administered on 02/10/19 06:41; Admin Dose 4 MG; Start 02/05/19 at 06:00 Acetaminophen (Tylenol Tab) 650 mg Q6H PRN PO .PAIN 1-3 OR TEMP Last administered on 02/10/19 03:22; Admin Dose 650 MG; Start 02/05/19 at 06:00 Docusate Sodium (Colace) 250 mg DAILY PO Last administered on 02/13/19 07:42; Admin Dose 250 MG; Start 02/05/19 at 10:00 Metoprolol Succinate (Toprol Xl) 100 mg DAILY PO ; Start 02/05/19 at 10:00 Metoclopramide HCl (Reglan) 5 mg Q6H PRN IV nausea/vomiting; Start 02/05/19 at 09:30 Hydralazine HCl (Apresoline) 10 mg Q6H PRN IV sbp>160; Start 02/05/19 at 09:30 Acetaminophen (Tylenol Supp) 650 mg Q6H PRN [place] FEVER Last administered on 02/05/19 18:28; Admin Dose 650 MG; Start 02/05/19 at 12:30 Pantoprazole (Protonix Tab) 40 mg DAILY@06 PO Last administered on 02/13/19 05:11; Admin Dose 40 MG; Start 02/09/19 at 06:00 Ibuprofen (Motrin) 600 mg Q6H PRN PO MILD PAIN LEVEL 1-3; Start 02/12/19 at 10:30 Acetaminophen/ Hydrocodone Bitart ([place] (5/325)) 1 tab Q4H PRN PO MODERATE PA IN LEVEL 4-6 Last administered on 02/13/19 17:13; Admin Dose 1 TAB; Start 02/12/19 at 16:30 Ibuprofen (Motrin) 400 mg Q6H PRN PO MILD PAIN(1-3) OR TEMP>38C; Start 02/12/19 at 16:30 Piperacillin Sod/ Tazobactam Sod 100 ml @ 25 mls/hr TID@02,10,18 IVPB Last administered on 02/13/19 17:06; Admin Dose 25 MLS/HR; Start 02/13/19 at 14:00; Stop 02/20/19 at 13:59 Lactated Ringer's 1,000 ml @ 75 mls/hr [id number] IV Last administered on 02/13/19at 17:13; Admin Dose 75 MLS/HR; Start 02/13/19 at 14:30 Allergies: Coded Allergies: No Known Allergy (Unverified , 02/05/19) Past Surgical History Past Surgical Hx: no surgical history Family History Significant Family History: no pertinent family hx Social History Alcohol Use: none Smoking Status: Never smoker Drug Use: none Exam/Review of Systems Exam Vitals Vital Signs Date Temp Pulse Resp B/P (MAP) Pulse Ox O2 O2 Flow FiO2 Time Delivery Rate 02/13/19 98.1 86 18 125/60 97 Room Air 14:00 (81) 02/13/19 2.0 02:26 Intake and Output 02/12/19 02/12/19 02/13/19 1515:00 23:00 07:00 IntakeIntake Total 100 ml OutputOutput Total 100 ml 180 ml BalanceBalance 0 ml -180 ml Constitutional: alert, oriented Psych: no complaints Head: normocephalic Eyes: nl conjunctiva ENMT: nl external ears & nose Neck: supple Respiratory: clear to auscultation Cardiovascular: regular rate and rhythm Gastrointestinal: soft, other (There is a drainage catheter in the right upper quadrant draining bilious fluid) Musculoskeletal: nl extremities to inspection Extremities: normal pulses Neurological: [employer]LYST II-XII intact, nl speech Skin: nl turgor Results Result Diagram: 02/13/19190402/13/191904 Results 24hrs Laboratory Tests Test 02/13/19 14:18 02/13/19 19:05 Sodium Level 143 143 Potassium Level 3.5 3.3 L Chloride Level 108 108 Carbon Dioxide Level 28 29 Anion Gap 7 6 Blood Urea Nitrogen 5 L 5 L Creatinine 0.49 0.50 Est Glomerular Filtrat Rate mL/min Glucose Level 94 97 Calcium Level 9.8 9.9 Total Bilirubin 0.8 0.5 Direct Bilirubin 0.20 # 0.00 # Indirect Bilirubin 0.6 0.5 Aspartate Amino Transf (AST/SGOT) 59 H 55 H Alanine Aminotransferase (ALT/SGPT) 38 34 Alkaline Phosphatase 313 #H 292 H Total Protein 5.4 L 5.8 L Albumin 2.5 L 2.7 L Globulin 2.90 3.10 Albumin/Globulin Ratio 0.86 0.87 White Blood Count 9.4 # Red Blood Count 3.45 L Hemoglobin 10.3 L Hematocrit 31.5 L Mean Corpuscular Volume 91.3 Mean Corpuscular Hemoglobin 29.9 Mean Corpuscular Hemoglobin Concent 32.7 Red Cell Distribution Width 17.0 H Platelet Count 304 # Mean Platelet Volume 10.6 H Immature Granulocytes % 2.400 H Neutrophils % 79.2 H Lymphocytes % 8.5 L Monocytes % 9.4 Eosinophils % 0.0 Basophils % 0.5 Nucleated Red Blood Cells % 0.0 Immature Granulocytes # 0.230 H Neutrophils # 7.4 Lymphocytes # 0.8 Monocytes # 0.9 Eosinophils # 0.0 Basophils # 0.1 Nucleated Red Blood Cells # 0.0 Medications Medication Current Medications IV Flush (NS 3 ml) 3 ml PER PROTOCOL IV ; Start 02/05/19 at 06:00 Ondansetron HCl (Zofran Inj) 4 mg Q6H PRN IV NAUSEA/VOMITING Last administered on 02/10/19at 06:41; Admin Dose 4 MG; Start 02/05/19 at 06:00 Acetaminophen (Tylenol Tab) 650 mg Q6H PRN PO .PAIN 1-3 OR TEMP Last administered on 02/10/19at 03:22; Admin Dose 650 MG; Start 02/05/19 at 06:00 Docusate Sodium (Colace) 250 mg DAILY PO Last administered on 02/13/19 07:42; Admin Dose 250 MG; Start 02/05/19 at 10:00 Metoprolol Succinate (Toprol Xl) 100 mg DAILY PO ; Start 02/05/19 at 10:00 Metoclopramide HCl (Reglan) 5 mg Q6H PRN IV nausea/vomiting; Start 02/05/19 at 09:30 Hydralazine HCl (Apresoline) 10 mg Q6H PRN IV sbp>160; Start 02/05/19 at 09:30 Acetaminophen (Tylenol Supp) 650 mg Q6H PRN RI FEVER Last administered on 02/05/19at 18:28; Admin Dose 650 MG; Start 02/05/19 at 12:30 Pantoprazole (Protonix Tab) 40 mg DAILY@06 PO Last administered on 02/13/19at 05:11; Admin Dose 40 MG; Start 02/09/19 at 06:00 Ibuprofen (Motrin) 600 mg Q6H PRN PO MILD PAIN LEVEL 1-3; Start 02/12/19 at 10:30 Acetaminophen/ Hydrocodone Bitart ([place] (5/325)) 1 tab Q4H PRN PO MODERATE PAIN LEVEL 4-6 Last administered on 02/13/19at 17:13; Admin Dose 1 TAB; Start 02/12/19 at 16:30 Ibuprofen (Motrin) 400 mg Q6H PRN PO MILD PAIN(1-3) OR TEMP>38C; Start 02/12/19 at 16:30 Piperacillin Sod/ Tazobactam Sod 100 ml @ 25 mls/hr TID@02,10,18 IVPB Last administered on 02/13/19at 17:06; Admin Dose 25 MLS/HR; Start 02/13/19 at 14:00; Stop 02/20/19 at 13:59 Lactated Ringer's 1,000 ml @ 75 mls/hr [id number] IV Last administered on 02/13/19at 17:13; Admin Dose 75 MLS/HR; Start 02/13/19 at 14:30 SARBJIT BAILEY MD Feb 13, 2019 19:57
[2019-02-13 20:00] VITALS: BP 138/87; PULSE 94; RESP 19
[2019-02-13] MEDS ORDERED: POLYETHYLENE GLYCOL 17 GM PACKET PO SCH (21:00)
[2019-02-14] MEDS: PIPER-TAZO 3.375 GM IV (PMX) 100 ML IVPB SCH ×3 (01:30→17:22)
[2019-02-14] MEDS: HYDROCODONE/APAP (5/325) TAB PO PRN ×6 (01:30→21:29)
[2019-02-14 02:40] VITALS: BP 141/64; PULSE 92; RESP 17
[2019-02-14] MEDS: LACTATED RINGER'S 1,000 ML IV SCH ×2 (03:43→15:56)
[2019-02-14] MEDS: PANTOPRAZOLE (EC) 40 MG TAB PO SCH (05:29)
[2019-02-14 07:10] VITALS: BP 137/65; PULSE 87; RESP 18
[2019-02-14 07:13] VITALS: BP 105/71; PULSE 97; RESP 18
[2019-02-14] MEDS: DOCUSATE SODIUM 250 MG CAP PO SCH (08:33)
[2019-02-14] MEDS: METOPROLOL (XL) 100 MG TAB PO SCH (08:33)
[2019-02-14] MEDS: ONDANSETRON 4 MG INJ IV PRN (08:45)
[2019-02-14] MEDS: POLYETHYLENE GLYCOL 17 GM PACKET PO SCH (12:28)
[2019-02-14] MEDS ORDERED: BISACODYL (EC) 5 MG TAB PO PRN (12:30)
--- NOTE | 2019-02-14 15:48 | PN ---
Date/Time of Note Date/Time of Note DATE: 02/14/19 TIME: 15:31 Assessment/Plan VTE Prophylaxis Risk score (from Ns)>0 risk: 4 SCD applied (from Ns): Yes Pharmacological prophylaxis: NA/contraindicated Pharm contraindication: liver dx Lines/Catheters IV C[facility] Type (from [facility] Peripheral IV Assessment/Plan Assessment/Plan Assessment: CT showing possible abscess with diverticulum perforation Hepatic mass AFP: 3.60 CEA: 5.3 CA 199: >1000 Ca125: 31.1 MRI- Peripherally enhancing, cystic versus centrally necrotic 4.2 cm lesion is seen centrally within the liver, concerning for neoplasm. ERCP 02/06/2019 High-grade papillary stricture with proximal dilatation. Unsuccessful cannulation. Attempted precut access sphincterotomy resulted in tracking adjacent to the biliary tree. Reported coffee-ground emesis/melena- resolved Normocytic anemia Transaminitis - trending down Direct hyperbilirubinemia- resolved Epigastric/RUQ pain Fevers- resolved Sigmoid diverticulitis, mild Hypokalemia-replaced History of cholecystectomy History of Renal stone -S/p lithotripsy Hypertension Dyslipidemia Urinary retention Plan: Start Reglan 10 mg every 6 IR aspiration may not be possible due to location of abscess. Recommend ID consult PPI daily Patient seen in collaboration with Dr. Nieves Subjective: Course reviewed with nursing staff Patient interviewed and examined All labs, imaging and other results reviewed Patient was reconsulted due to new findings on CT showing possible abscess with diverticulum perforation. Patient is complaining of generalized abdominal pain, nausea and vomiting. Patient is scheduled for CT-guided aspiration of the abscess however interventional radiologist might be unable to access the area, will discuss the case with the hospitalist. Recommend ID consultation. If procedure is canceled may resume the diet. PHYSICAL EXAMINATION: GENERAL: Alert & oriented x 3, SKIN: No lesions. HEAD: Normocephalic, atraumatic, no tenderness. EYES: Pupils equal reactive to light and accommodation, no discharge. EARS/NOSE AND THROAT: Ears normal, nose normal. NECK: Supple, no masses. CHEST: Inspection within normal limits. CARDIOVASCULAR: Heart: Regular rate and rhythm RESPIRATORY: Lungs clear to auscultation GASTROINTESTINAL AND LIVER: Abdomen: Soft, generalized abdominal pain, non-dis tended, no hernias, normoactive bowel sounds. Rectal: Deferred. EXTREMITIES: No cyanosis, clubbing or edema. Result Diagram: 02/14/19 0441 02/13/19 1905 Results 24hrs Laboratory Tests Test 02/13/19 19:05 02/14/19 04:41 White Blood Count 9.4 # 10.2 Red Blood Count 3.45 L 3.60 L Hemoglobin 10.3 L 10.5 L Hematocrit 31.5 L 32.2 L Mean Corpuscular Volume 91.3 89.4 Mean Corpuscular Hemoglobin 29.9 29.2 Mean Corpuscular Hemoglobin Concent 32.7 32.6 Red Cell Distribution Width 17.0 H 17.1 H Platelet Count 304 # 328 Mean Platelet Volume 10.6 H 10.8 H Immature Granulocytes % 2.400 H 2.100 H Neutrophils % 79.2 H 78.8 H Lymphocytes % 8.5 L 10.9 L Monocytes % 9.4 7.9 Eosinophils % 0.0 0.0 Basophils % 0.5 0.3 Nucleated Red Blood Cells % 0.0 0.0 Immature Granulocytes # 0.230 H 0.210 H Neutrophils # 7.4 8.0 H Lymphocytes # 0.8 1.1 Monocytes # 0.9 0.8 Eosinophils # 0.0 0.0 Basophils # 0.1 0.0 Nucleated Red Blood Cells # 0.0 0.0 Sodium Level 143 Potassium Level 3.3 L Chloride Level 108 Carbon Dioxide Level 29 Anion Gap 6 Blood Urea Nitrogen 5 L Creatinine 0.50 Est Glomerular Filtrat Rate mL/min Glucose Level 97 Calcium Level 9.9 Total Bilirubin 0.5 Direct Bilirubin 0.00 # Indirect Bilirubin 0.5 Aspartate Amino Transf (AST/SGOT) 55 H Alanine Aminotransferase (ALT/SGPT) 34 Alkaline Phosphatase 292 H Total Protein 5.8 L Albumin 2.7 L Globulin 3.10 Albumin/Globulin Ratio 0.87 CC: RAYNA NIEVES MD ; Exam/Review of Systems Exam Vitals Vital Signs Date Temp Pulse Resp B/P (MAP) Pulse Ox O2 O2 Flow FiO2 Time Delivery Rate 02/14/19 Nasal 2.0 10:25 Cannula 02/14/19 98.9 87 18 137/65 96 07:10 (89) Intake and Output 02/13/19 02/13/19 02/14/19 1515:00 23:00 07:00 IntakeIntake Total 350 ml 100 ml OutputOutput Total 50 ml 190 ml BalanceBalance 350 ml 50 ml -190 ml Results Results 24hrs Laboratory Tests Test 02/13/19 19:05 02/14/19 04:41 White Blood Count 9.4 # 10.2 Red Blood Count 3.45 L 3.60 L Hemoglobin 10.3 L 10.5 L Hematocrit 31.5 L 32.2 L Mean Corpuscular Volume 91.3 89.4 Mean Corpuscular Hemoglobin 29.9 29.2 Mean Corpuscular Hemoglobin Concent 32.7 32.6 Red Cell Distribution Width 17.0 H 17.1 H Platelet Count 304 # 328 Mean Platelet Volume 10.6 H 10.8 H Immature Granulocytes % 2.400 H 2.100 H Neutrophils % 79.2 H 78.8 H Lymphocytes % 8.5 L 10.9 L Monocytes % 9.4 7.9 Eosinophils % 0.0 0.0 Basophils % 0.5 0.3 Nucleated Red Blood Cells % 0.0 0.0 Immature Granulocytes # 0.230 H 0.210 H Neutrophils # 7.4 8.0 H Lymphocytes # 0.8 1.1 Monocytes # 0.9 0.8 Eosinophils # 0.0 0.0 Basophils # 0.1 0.0 Nucleated Red Blood Cells # 0.0 0.0 Sodium Level 143 Potassium Level 3.3 L Chloride Level 108 Carbon Dioxide Level 29 Anion Gap 6 Blood Urea Nitrogen 5 L Creatinine 0.50 Est Glomerular Filtrat Rate mL/min Glucose Level 97 Calcium Level 9.9 Total Bilirubin 0.5 Direct Bilirubin 0.00 # Indirect Bilirubin 0.5 Aspartate Amino Transf (AST/SGOT) 55 H Alanine Aminotransferase (ALT/SGPT) 34 Alkaline Phosphatase 292 H Total Protein 5.8 L Albumin 2.7 L Globulin 3.10 Albumin/Globulin Ratio 0.87 Medications Medication Current Medications IV Flush (NS 3 ml) 3 ml PER PROTOCOL IV ; Start 02/05/19 at 06:00 Ondansetron HCl (Zofran Inj) 4 mg Q6H PRN IV NAUSEA/VOMITING Last administered on 02/14/19at 08:45; Admin Dose 4 MG; Start 02/05/19 at 06:00 Acetaminophen (Tylenol Tab) 650 mg Q6H PRN PO .PAIN 1-3 OR TEMP Last administered on 02/10/19at 03:22; Admin Dose 650 MG; Start 02/05/19 at 06:00 Docusate Sodium (Colace) 250 mg DAILY PO Last administered on 02/13/19at 07:42; Admin Dose 250 MG; Start 02/05/19 at 10:00 Metoprolol Succinate (Toprol Xl) 100 mg DAILY PO ; Start 02/05/19 at 10:00 Metoclopramide HCl (Reglan) 5 mg Q6H PRN IV nausea/vomiting; Start 02/05/19 at 09:30 Hydralazine HCl (Apresoline) 10 mg Q6H PRN IV sbp>160; Start 02/05/19 at 09:30 Acetaminophen (Tylenol Supp) 650 mg Q6H PRN [place] FEVER Last administered on 02/05/19at 18:28; Admin Dose 650 MG; Start 02/05/19 at 12:30 Pantoprazole (Protonix Tab) 40 mg DAILY@06 PO Last administered on 02/14/19at 05:29; Admin Dose 40 MG; Start 02/09/19 at 06:00 Ibuprofen (Motrin) 600 mg Q6H PRN PO MILD PAIN LEVEL 1-3; Start 02/12/19 at 10:30 Acetaminophen/ Hydrocodone Bitart ([place] (5/325)) 1 tab Q4H PRN PO MODERATE PAIN LEVEL 4-6 Last administered on 02/14/19at 13:25; Admin Dose 1 TAB; Start 02/12/19 at 16:30 Ibuprofen (Motrin) 400 mg Q6H PRN PO MILD PAIN(1-3) OR TEMP>38C; Start 02/12/19 at 16:30 Piperacillin Sod/ Tazobactam Sod 100 ml @ 25 mls/hr TID@,18 IVPB Last administered on 02/14/19at 09:37; Admin Dose 25 MLS/HR; Start 02/13/19 at 14:00; Stop 02/20/19 at 13:59 Lactated Ringer's 1,000 ml @ 75 mls/hr [id number] IV Last administered on 02/13/19at 17:13; Admin Dose 75 MLS/HR; Start 02/13/19 at 14:30 Polyethylene Glycol (Miralax) 8.5 gm DAILY PO ; Start 02/14/19 at 14:00 Bisacodyl (Dulcolax) 5 mg DAILY PRN PO CONSTIPATION; Start 02/14/19 at 12:30 WYATT SCHAFFER NP Feb 14, 2019 15:45
--- NOTE | 2019-02-14 16:01 | PN ---
Date/Time of Note Date/Time of Note DATE: 02/14/19 TIME: 15:57 Assessment/Plan VTE Prophylaxis Risk score (from Nsg)>0 risk: 4 SCD applied (from Nsg): Yes Pharmacological prophylaxis: heparin Lines/Catheters IV Catheter Type (from Nrsg): Peripheral IV Assessment/Plan Hospital Course Calm but uncomfortable No distress RRR CTAB RUQ biliary drain in place Abdomen with severe pain in RLQ Ext without edema ASSESSMENT AND PLAN:84 yo F w/htn,dlp,cholecystectomy,renal stones, lithotripsy here w/ coffee-ground emesis, epigastric/right-sided abdominal pain, and black tarry stoolx 1mos duration and found to have intrahepatic mass with biliary dilitation concerning for malignancy, now s/p PTC drain and 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 Course complicated by abdominal pain and CT showing possible abscess with diverticulum perforation Abdominal fluid collection with possible perforated diverticulum: - Started on IV zoysn - It is not clear to me whether this is infected or not. IR unable to access it. Surgeyr not indicated per Dr Dallas. Will continue medical management Hepatic mass W/Biliary obstruction -CT also noted for hepatic ductal obstruction with intrahepatic duct dilatation bilaterally - s/p biopsy showing carcinoma - Surgical management will have to be performed at tertiary center per Dr Kendrick Transaminase elevation with hyperbilirubinemia secondary to above -Attempted ERCP 02/06/2019, unsuccessful. s/p Percutaneous biliary drainage. - Bilis now normalized DVT prophylaxis: SCDs PUD prophylaxis: Protonix CODE STATUS: Full code Disposition: Transfer to tertiary center for surgery Result Diagram: 02/14/19 0441 02/13/19 1905 Results 24hrs Laboratory Tests Test 02/13/19 19:05 02/14/19 04:41 White Blood Count 9.4 # 10.2 Red Blood Count 3.45 L 3.60 L Hemoglobin 10.3 L 10.5 L Hematocrit 31.5 L 32.2 L Mean Corpuscular Volume 91.3 89.4 Mean Corpuscular Hemoglobin 29.9 29.2 Mean Corpuscular Hemoglobin Concent 32.7 32.6 Red Cell Distribution Width 17.0 H 17.1 H Platelet Count 304 # 328 Mean Platelet Volume 10.6 H 10.8 H Immature Granulocytes % 2.400 H 2.100 H Neutrophils % 79.2 H 78.8 H Lymphocytes % 8.5 L 10.9 L Monocytes % 9.4 7.9 Eosinophils % 0.0 0.0 Basophils % 0.5 0.3 Nucleated Red Blood Cells % 0.0 0.0 Immature Granulocytes # 0.230 H 0.210 H Neutrophils # 7.4 8.0 H Lymphocytes # 0.8 1.1 Monocytes # 0.9 0.8 Eosinophils # 0.0 0.0 Basophils # 0.1 0.0 Nucleated Red Blood Cells # 0.0 0.0 Sodium Level 143 Potassium Level 3.3 L Chloride Level 108 Carbon Dioxide Level 29 Anion Gap 6 Blood Urea Nitrogen 5 L Creatinine 0.50 Est Glomerular Filtrat Rate mL/min Glucose Level 97 Calcium Level 9.9 Total Bilirubin 0.5 Direct Bilirubin 0.00 # Indirect Bilirubin 0.5 Aspartate Amino Transf (AST/SGOT) 55 H Alanine Aminotransferase (ALT/SGPT) 34 Alkaline Phosphatase 292 H Total Protein 5.8 L Albumin 2.7 L Globulin 3.10 Albumin/Globulin Ratio 0.87 Subjective 24 Hr Interval Summary Free Text/Dictation IR unable to access fluid collection I put the patient on zosyn yesterday, so far without much effect. Still with good amount of pain Exam/Review of Systems Exam Vitals Vital Signs Date Temp Pulse Resp B/P (MAP) Pulse Ox O2 O2 Flow FiO2 Time Delivery Rate 02/14/19 Nasal 2.0 10:25 Cannula 02/14/19 98.9 87 18 137/65 96 07:10 (89) Intake and Output 02/13/19 02/13/19 02/14/19 1515:00 23:00 07:00 IntakeIntake Total 350 ml 100 ml OutputOutput Total 50 ml 190 ml BalanceBalance 350 ml 50 ml -190 ml Results Results 24hrs Laboratory Tests Test 02/13/19 19:05 02/14/19 04:41 White Blood Count 9.4 # 10.2 Red Blood Count 3.45 L 3.60 L Hemoglobin 10.3 L 10.5 L Hematocrit 31.5 L 32.2 L Mean Corpuscular Volume 91.3 89.4 Mean Corpuscular Hemoglobin 29.9 29.2 Mean Corpuscular Hemoglobin Concent 32.7 32.6 Red Cell Distribution Width 17.0 H 17.1 H Platelet Count 304 # 328 Mean Platelet Volume 10.6 H 10.8 H Immature Granulocytes % 2.400 H 2.100 H Neutrophils % 79.2 H 78.8 H Lymphocytes % 8.5 L 10.9 L Monocytes % 9.4 7.9 Eosinophils % 0.0 0.0 Basophils % 0.5 0.3 Nucleated Red Blood Cells % 0.0 0.0 Immature Granulocytes # 0.230 H 0.210 H Neutrophils # 7.4 8.0 H Lymphocytes # 0.8 1.1 Monocytes # 0.9 0.8 Eosinophils # 0.0 0.0 Basophils # 0.1 0.0 Nucleated Red Blood Cells # 0.0 0.0 Sodium Level 143 Potassium Level 3.3 L Chloride Level 108 Carbon Dioxide Level 29 Anion Gap 6 Blood Urea Nitrogen 5 L Creatinine 0.50 Est Glomerular Filtrat Rate mL/min Glucose Level 97 Calcium Level 9.9 Total Bilirubin 0.5 Direct Bilirubin 0.00 # Indirect Bilirubin 0.5 Aspartate Amino Transf (AST/SGOT) 55 H Alanine Aminotransferase (ALT/SGPT) 34 Alkaline Phosphatase 292 H Total Protein 5.8 L Albumin 2.7 L Globulin 3.10 Albumin/Globulin Ratio 0.87 Medications Medication Current Medications IV Flush (NS 3 ml) 3 ml PER PROTOCOL IV ; Start 02/05/19 at 06:00 Ondansetron HCl (Zofran Inj) 4 mg Q6H PRN IV NAUSEA/VOMITING Last administered on 02/14/19 08:45; Admin Dose 4 MG; Start 02/05/19 at 06:00 Acetaminophen (Tylenol Tab) 650 mg Q6H PRN PO .PAIN 1-3 OR TEMP Last administered on 02/10/19 03:22; Admin Dose 650 MG; Start 02/05/19 at 06:00 Docusate Sodium (Colace) 250 mg DAILY PO Last administered on 02/13/19 07:42; Admin Dose 250 MG; Start 02/05/19 at 10:00 Metoprolol Succinate (Toprol Xl) 100 mg DAILY PO ; Start 02/05/19 at 10:00 Hydralazine HCl (Apresoline) 10 mg Q6H PRN IV sbp>160; Start 02/05/19 at 09:30 Acetaminophen (Tylenol Supp) 650 mg Q6H PRN [place] FEVER Last administered on 02/05/19at 18:28; Admin Dose 650 MG; Start 02/05/19 at 12:30 Pantoprazole (Protonix Tab) 40 mg DAILY@06 PO Last administered on 02/14/19at 05:29; Admin Dose 40 MG; Start 02/09/19 at 06:00 Ibuprofen (Motrin) 600 mg Q6H PRN PO MILD PAIN LEVEL 1-3; Start 02/12/19 at 10:30 Acetaminophen/ Hydrocodone Bitart ([place] (5/325)) 1 tab Q4H PRN PO MODERATE PAIN LEVEL 4-6 Last administered on 02/14/19at 13:25; Admin Dose 1 TAB; Start 02/12/19 at 16:30 Ibuprofen (Motrin) 400 mg Q6H PRN PO MILD PAIN(1-3) OR TEMP>38C; Start 02/12/19 at 16:30 Piperacillin Sod/ Tazobactam Sod 100 ml @ 25 mls/hr TID@02,10,18 IVPB Last administered on 02/14/19at 09:37; Admin Dose 25 MLS/HR; Start 02/13/19 at 14:00; Stop 02/20/19 at 13:59 Lactated Ringer's 1,000 ml @ 75 mls/hr [id number] IV Last administered on 02/14/19at 15:56; Admin Dose 75 MLS/HR; Start 02/13/19 at 14:30 Polyethylene Glycol (Miralax) 8.5 gm DAILY PO ; Start 02/14/19 at 14:00 Bisacodyl (Dulcolax) 5 mg DAILY PRN PO CONSTIPATION; Start 02/14/19 at 12:30 Metoclopramide HCl (Reglan) 10 mg Q6 IV ; Start 02/14/19 at 18:00 BRONWYN FRAUSTO MD Feb 14, 2019 16:01
--- NOTE | 2019-02-14 17:08 | QN ---
Documentation Comment Today's events noted The CT finding was not accessible to CT drainage Impression: No significant change. Patient will require transfer to tertiary center for higher level of care SARBJIT BAILEY MD Feb 14, 2019 17:08
[2019-02-14] MEDS: METOCLOPRAMIDE 10 MG INJ IV SCH ×2 (17:22→23:04)
[2019-02-14 19:49] VITALS: BP 141/76; PULSE 83; RESP 18
[2019-02-14] MEDS ORDERED: POTASSIUM CHLORIDE (SR) 20 MEQ TAB PO ONE (22:00)
[2019-02-15] MEDS: HYDROCODONE/APAP (5/325) TAB PO PRN ×5 (01:27→19:42)
[2019-02-15] MEDS: PIPER-TAZO 3.375 GM IV (PMX) 100 ML IVPB SCH ×3 (01:27→17:16)
[2019-02-15 02:41] VITALS: BP 143/69; PULSE 89; RESP 18
[2019-02-15] MEDS: METOCLOPRAMIDE 10 MG INJ IV SCH ×3 (05:38→17:16)
[2019-02-15] MEDS: PANTOPRAZOLE (EC) 40 MG TAB PO SCH (05:38)
[2019-02-15] MEDS: LACTATED RINGER'S 1,000 ML IV SCH ×2 (06:30→21:49)
[2019-02-15 08:20] VITALS: BP 142/67; PULSE 90; RESP 18
[2019-02-15] MEDS: POLYETHYLENE GLYCOL 17 GM PACKET PO SCH (08:56)
[2019-02-15] MEDS: DOCUSATE SODIUM 250 MG CAP PO SCH (08:57)
[2019-02-15] MEDS: METOPROLOL (XL) 100 MG TAB PO SCH (08:57)
--- NOTE | 2019-02-15 12:18 | CONS ---
Assessment/Plan Assessment/Plan Assessment/Plan (Daily) #Liver mass #Biliary obstruction - s/p unsuccessful cannulation attempt #Pancreatic Cyst #HTN #Hyperlipidemia -fliver bx consistent with cholangiocarcinoma. There is a very high chance of malignancy especially given the elevated CA 19-9>1000 -s/p percutaneous biliary drainage. -f/u Dr. Davila has evaluated the scan and states this would be a very complicated and extensive surgery that would need evaluation at a tertiary care center. -continue to monitor pancreatic cyst with serial imaging -continue current management of HTN, and HL per the primary team Patient seen in collaboration with Dr Esquivel Consultation Date/Type/Reason Admit Date/Time Feb 05, 2019 at 05:27 Initial Consult Date 02/07/19 Type of Consult oncology Reason for Consultation Liver mass Requesting Provider: JENNIE JEAN BAPTISTE NP Date/Time of Note DATE: 02/15/19 TIME: 12:17 24 HR Interval Summary Free Text/Dictation no events overnight Pending transfer to acute hospital for tertiary level care daughter at bed side- all Qs answered dw staff Constitutional: requiring O2 Detailed Summary Eyes: no complaints ENT: no complaints Respiratory: no complaints Cardiovascular: no complaints Gastrointestinal: pain, decreased appetite Musculoskeletal: other (generelized weakness) Skin: no complaints Neurologic: no complaints Exam/Review of Systems Exam Vitals Vital Signs Date Temp Pulse Resp B/P (MAP) Pulse Ox O2 O2 Flow FiO2 Time Delivery Rate 02/15/19 99.1 90 18 142/67 96 Nasal 08:20 (92) Cannula 02/15/19 2.0 08:15 Intake and Output 02/14/19 02/14/19 02/15/19 1515:00 23:00 07:00 IntakeIntake Total 100 ml 1150 ml 100 ml OutputOutput Total 400 ml 140 ml 150 ml BalanceBalance -300 ml 1010 ml -50 ml Constitutional: alert, well developed Psych: nl mood/affect Eyes: nl lids, nl sclera ENMT: nl external ears & nose Neck: non-tender Respiratory: clear to auscultation Cardiovascular: nl pulses, other (s1s2) Gastrointestinal: soft, tender (RUQ tenderness; diffuse tenderness noted) Musculoskeletal: muscle weakness Extremities: normal pulses Neurological: nl speech, other (alert/responsive) Results Result Diagram: 02/14/19 0441 02/13/19 1905 Medications Medication Current Medications IV Flush (NS 3 ml) 3 ml PER PROTOCOL IV ; Start 02/05/19 at 06:00 Ondansetron HCl (Zofran Inj) 4 mg Q6H PRN IV NAUSEA/VOMITING Last administered on 02/14/19 08:45; Admin Dose 4 MG; Start 02/05/19 at 06:00 Acetaminophen (Tylenol Tab) 650 mg Q6H PRN PO .PAIN 1-3 OR TEMP Last administered on 02/10/19 03:22; Admin Dose 650 MG; Start 02/05/19 at 06:00 Docusate Sodium (Colace) 250 mg DAILY PO Last administered on 02/15/19 08:57; Admin Dose 250 MG; Start 02/05/19 at 10:00 Metoprolol Succinate (Toprol Xl) 100 mg DAILY PO Last administered on 02/15/19 08:57; Admin Dose 100 MG; Start 02/05/19 at 10:00 Hydralazine HCl (Apresoline) 10 mg Q6H PRN IV sbp>160; Start 02/05/19 at 09:30 Acetaminophen (Tylenol Supp) 650 mg Q6H PRN [place] FEVER Last administered on 02/05/19 18:28; Admin Dose 650 MG; Start 02/05/19 at 12:30 Pantoprazole (Protonix Tab) 40 mg DAILY@06 PO Last administered on 02/15/19 05:38; Admin Dose 40 MG; Start 02/09/19 at 06:00 Ibuprofen (Motrin) 600 mg Q6H PRN PO MILD PAIN LEVEL 1-3; Start 02/12/19 at 10:30 Acetaminophen/ Hydrocodone Bitart ([place] (5/325)) 1 tab Q4H PRN PO MODERATE PAIN LEVEL 4-6 Last administered on 02/15/19 09:39; Admin Dose 1 TAB; Start 02/12/19 at 16:30 Ibuprofen (Motrin) 400 mg Q6H PRN PO MILD PAIN(1-3) OR TEMP>38C; Start 02/12/19 at 16:30 Piperacillin Sod/ Tazobactam Sod 100 ml @ 25 mls/hr TID@02,,18 IVPB Last administered on 02/15/19 09:00; Admin Dose 25 MLS/HR; Start 02/13/19 at 14:00; Stop 02/20/19 at 13:59 Lactated Ringer's 1,000 ml @ 75 mls/hr [id number] IV Last administered on 02/14/19at 15:56; Admin Dose 75 MLS/HR; Start 02/13/19 at 14:30 Polyethylene Glycol (Miralax) 8.5 gm DAILY PO ; Start 02/14/19 at 14:00 Bisacodyl (Dulcolax) 5 mg DAILY PRN PO CONSTIPATION; Start 02/14/19 at 12:30 Metoclopramide HCl (Reglan) 10 mg Q6 IV Last administered on 02/15/19at 11:04; Admin Dose 10 MG; Start 02/14/19 at 18:00 CHERELLE MERRITT Feb 15, 2019 12:18
--- NOTE | 2019-02-15 12:42 | QN ---
Documentation Comment Patient remains afebrile, and leukocytosis resolved Patient requires transfer to tertiary center for continuance of care SARBJIT BAILEY MD Feb 15, 2019 12:42
--- NOTE | 2019-02-15 14:11 | PN ---
Date/Time of Note Date/Time of Note DATE: 02/15/19 TIME: 14:10 Assessment/Plan VTE Prophylaxis Risk score (from Nsg)>0 risk: 5 SCD applied (from Nsg): Yes Pharmacological prophylaxis: heparin Lines/Catheters IV Catheter Type (from Nrsg): Peripheral IV Assessment/Plan Hospital Course Calm but uncomfortable No distress RRR CTAB RUQ biliary drain in place Abdomen with severe pain in RLQ Ext without edema ASSESSMENT AND PLAN:84 yo F w/htn,dlp,cholecystectomy,renal stones, lithotripsy here w/ coffee-ground emesis, epigastric/right-sided abdominal pain, and black tarry stoolx 1mos duration and found to have intrahepatic mass with biliary dilitation concerning for malignancy, now s/p PTC drain and 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 Course complicated by abdominal pain and poor PO intake Abdominal fluid collection with possible perforated diverticulum: - Started on IV zoysn empirically, though I do not know if this is infection or not, but beneft of abx outweighs risk at this point - It is not clear to me whether this is infected or not. IR unable to access it. Surgeyr not indicated per Dr Dallas. Will continue medical management Hepatic mass W/Biliary obstruction -CT also noted for hepatic ductal obstruction with intrahepatic duct dilatation bilaterally - s/p biopsy showing carcinoma - Surgical management will have to be performed at tertiary center per Dr Jacoby frost Transaminase elevation with hyperbilirubinemia secondary to above -Attempted ERCP 02/06/2019, unsuccessful. s/p Percutaneous biliary drainage. - Bilis now normalized DVT prophylaxis: SCDs PUD prophylaxis: Protonix CODE STATUS: Full code Disposition: Transfer to tertiary center for surgery Result Diagram: 02/14/19 0441 02/13/19 1905 Subjective 24 Hr Interval Summary Free Text/Dictation Stable RUQ pain Awaiting transfer to tertiary center Exam/Review of Systems Exam Vitals Vital Signs Date Temp Pulse Resp B/P (MAP) Pulse Ox O2 O2 Flow FiO2 Time Delivery Rate 02/15/19 99.1 90 18 142/67 96 Nasal 08:20 (92) Cannula 02/15/19 2.0 08:15 Intake and Output 02/14/19 02/14/19 02/15/19 1515:00 23:00 07:00 IntakeIntake Total 100 ml 1150 ml 100 ml OutputOutput Total 400 ml 140 ml 150 ml BalanceBalance -300 ml 1010 ml -50 ml Constitutional: alert, oriented, well developed Psych: no complaints, nl mood/affect Head: normocephalic, atraumatic Eyes: nl conjunctiva, EOMI, nl lids, nl sclera, PERRL ENMT: nl external ears & nose, nl lips & teeth, nl nasal mucosa & septum Neck: supple, non-tender Respiratory: clear to auscultation, normal air movement Cardiovascular: regular rate and rhythm, nl pulses Gastrointestinal: soft, nl liver, spleen, non-tender Musculoskeletal: nl extremities to inspection, nl gait and stance Extremities: normal pulses Neurological: [employer]ED[employer]YOR II-XII intact, nl mental status, nl speech, nl strength Skin: nl turgor; No rash or lesions Lymph: nl lymph nodes Medications Medication Current Medications IV Flush (NS 3 ml) 3 ml PER PROTOCOL IV ; Start 02/05/19 at 06:00 Ondansetron HCl (Zofran Inj) 4 mg Q6H PRN IV NAUSEA/VOMITING Last administered on 02/14/19 08:45; Admin Dose 4 MG; Start 02/05/19 at 06:00 Acetaminophen (Tylenol Tab) 650 mg Q6H PRN PO .PAIN 1-3 OR TEMP Last administered on 02/10/19 03:22; Admin Dose 650 MG; Start 02/05/19 at 06:00 Docusate Sodium (Colace) 250 mg DAILY PO Last administered on 02/15/19 08:57; Admin Dose 250 MG; Start 02/05/19 at 10:00 Metoprolol Succinate (Toprol Xl) 100 mg DAILY PO Last administered on 02/15/19 08:57; Admin Dose 100 MG; Start 02/05/19 at 10:00 Hydralazine HCl (Apresoline) 10 mg Q6H PRN IV sbp>160; Start 02/05/19 at 09:30 Acetaminophen (Tylenol Supp) 650 mg Q6H PRN [place] FEVER Last administered on 02/05/19 18:28; Admin Dose 650 MG; Start 02/05/19 at 12:30 Pantoprazole (Protonix Tab) 40 mg DAILY@06 PO Last administered on 02/15/19 05:38; Admin Dose 40 MG; Start 02/09/19 at 06:00 Ibuprofen (Motrin) 600 mg Q6H PRN PO MILD PAIN LEVEL 1-3; Start 02/12/19 at 10:30 Acetaminophen/ Hydrocodone Bitart ([place] (5/325)) 1 tab Q4H PRN PO MODERATE PAIN LEVEL 4-6 Last administered on 02/15/19at 09:39; Admin Dose 1 TAB; Start 02/12/19 at 16:30 Ibuprofen (Motrin) 400 mg Q6H PRN PO MILD PAIN(1-3) OR TEMP>38C; Start 02/12/19 at 16:30 Piperacillin Sod/ Tazobactam Sod 100 ml @ 25 mls/hr TID@02,,18 IVPB Last administered on 02/15/19at 09:00; Admin Dose 25 MLS/HR; Start 02/13/19 at 14:00; Stop 02/20/19 at 13:59 Lactated Ringer's 1,000 ml @ 75 mls/hr [id number] IV Last administered on at 15:56; Admin Dose 75 MLS/HR; Start 02/13/19 at 14:30 Polyethylene Glycol (Miralax) 8.5 gm DAILY PO ; Start 02/14/19 at 14:00 Bisacodyl (Dulcolax) 5 mg DAILY PRN PO CONSTIPATION; Start 02/14/19 at 12:30 Metoclopramide HCl (Reglan) 10 mg Q6 IV Last administered on 02/15/19at 11:04; Admin Dose 10 MG; Start 02/14/19 at 18:00 BRONWYN FRAUSTO MD Feb 15, 2019 14:11
[2019-02-15 14:45] VITALS: BP 176/85; PULSE 80; RESP 18
[2019-02-15 15:00] VITALS: BP 141/67
--- NOTE | 2019-02-15 15:29 | PN ---
Date/Time of Note Date/Time of Note DATE: 02/15/19 TIME: 15:15 Assessment/Plan VTE Prophylaxis Risk score (from Ns)>0 risk: 5 SCD applied (from Nsg): Yes Pharmacological prophylaxis: NA/contraindicated Pharm contraindication: liver dx Lines/Catheters IV [facility] ([facility]): Peripheral IV Assessment/Plan Assessment/Plan CT showing possible abscess with diverticulum perforation IR unable to access for drainage. Hepatic mass AFP: 3.60 CEA: 5.3 CA 199: >1000 Ca125: 31.1 MRI- Peripherally enhancing, cystic versus centrally necrotic 4.2 cm lesion is seen centrally within the liver, concerning for neoplasm. ERCP 02/06/2019 High-grade papillary stricture with proximal dilatation. Unsuccessful cannulation. Attempted precut access sphincterotomy resulted in tracking adjacent to the biliary tree. Reported coffee-ground emesis/melena- resolved Normocytic anemia Transaminitis - trending down Direct hyperbilirubinemia- resolved Epigastric/RUQ pain Fevers- resolved Sigmoid diverticulitis, mild Hypokalemia-replaced History of cholecystectomy History of Renal stone -S/p lithotripsy Hypertension Dyslipidemia Urinary retention Plan: Possible plan for transfer to tertiary care center. Empiric antibiotics since abscess drainage not able to be performed. Continue reglan 10 mg q6 Recommend ID consult PPI daily Patient seen in collaboration with Dr. Nieves Subjective: Course reviewed with nursing staff Patient interviewed and examined All labs, imaging and other results reviewed Patient is comfortable in bed, denies pain, tolerating diet. IR unable to access the diverticular abscess, thus started on empiric broad spectrum antibiotics. Planned for transfer to tertiary care center for further intervention of cholangiocarcinoma. Continue to monitor. PHYSICAL EXAMINATION: GENERAL: Alert & oriented x 3, SKIN: No lesions. HEAD: Normocephalic, atraumatic, no tenderness. EYES: Pupils equal reactive to light and accommodation, no discharge. EARS/NOSE AND THROAT: Ears normal, nose normal. NECK: Supple, no masses. CHEST: Inspection within normal limits. CARDIOVASCULAR: Heart: Regular rate and rhythm RESPIRATORY: Lungs clear to auscultation GASTROINTESTINAL AND LIVER: Abdomen: Soft, generalized abdominal pain, non- distended, no hernias, normoactive bowel sounds. Rectal: Deferred. EXTREMITIES: No cyanosis, clubbing or edema. Result Diagram: 02/14/19 0441 02/13/19 1905 CC: RAYNA NIEVES MD ; Exam/Review of Systems Exam Vitals Vital Signs Date Temp Pulse Resp B/P (MAP) Pulse Ox O2 O2 Flow FiO2 Time Delivery Rate 02/15/19 141/67 15:00 (91) 02/15/19 98.8 80 18 97 Nasal 14:45 Cannula 02/15/19 2.0 08:15 Intake and Output 02/14/19 02/14/19 02/15/19 1515:00 23:00 07:00 IntakeIntake Total 100 ml 1150 ml 100 ml OutputOutput Total 400 ml 140 ml 150 ml BalanceBalance -300 ml 1010 ml -50 ml Medications Medication Current Medications IV Flush (NS 3 ml) 3 ml PER PROTOCOL IV ; Start 02/05/19 at 06:00 Ondansetron HCl (Zofran Inj) 4 mg Q6H PRN IV NAUSEA/VOMITING Last administered on 02/14/19 08:45; Admin Dose 4 MG; Start 02/05/19 at 06:00 Acetaminophen (Tylenol Tab) 650 mg Q6H PRN PO .PAIN 1-3 OR TEMP Last administered on 02/10/19 03:22; Admin Dose 650 MG; Start 02/05/19 at 06:00 Docusate Sodium (Colace) 250 mg DAILY PO Last administered on 02/15/19 08:57; Admin Dose 250 MG; Start 02/05/19 at 10:00 Metoprolol Succinate (Toprol Xl) 100 mg DAILY PO Last administered on 02/15/19 08:57; Admin Dose 100 MG; Start 02/05/19 at 10:00 Hydralazine HCl (Apresoline) 10 mg Q6H PRN IV sbp>160; Start 02/05/19 at 09:30 Acetaminophen (Tylenol Supp) [address] FEVER Last administered on 02/05/19 18:28; Admin Dose 650 MG; Start 02/05/19 at 12:30 Pantoprazole (Protonix Tab) 40 mg DAILY@06 PO Last administered on 02/15/19 05:38; Admin Dose 40 MG; Start 02/09/19 at 06:00 Ibuprofen (Motrin) 600 mg Q6H PRN PO MILD PAIN LEVEL 1-3; Start 02/12/19 at 10:30 Acetaminophen/ Hydrocodone Bitart ([place] (5/325)) 1 tab Q4H PRN PO MODERATE PAIN LEVEL 4-6 Last administered on 02/15/19at 14:23; Admin Dose 1 TAB; Start 02/12/19 at 16:30 Ibuprofen (Motrin) 400 mg Q6H PRN PO MILD PAIN(1-3) OR TEMP>38C; Start 02/12/19 at 16:30 Piperacillin Sod/ Tazobactam Sod 100 ml @ 25 mls/hr TID@,,18 IVPB Last ad ministered on 02/15/19at 09:00; Admin Dose 25 MLS/HR; Start 02/13/19 at 14:00; Stop 02/20/19 at 13:59 Lactated Ringer's 1,000 ml @ 75 mls/hr [id number] IV Last administered on 02/14/19at 15:56; Admin Dose 75 MLS/HR; Start 02/13/19 at 14:30 Polyethylene Glycol (Miralax) 8.5 gm DAILY PO ; Start 02/14/19 at 14:00 Bisacodyl (Dulcolax) 5 mg DAILY PRN PO CONSTIPATION; Start 02/14/19 at 12:30 Metoclopramide HCl (Reglan) 10 mg Q6 IV Last administered on 02/15/19at 11:04; Admin Dose 10 MG; Start 02/14/19 at 18:00 ADAM HAMILTON NP Feb 15, 2019 15:26
[2019-02-15 19:57] VITALS: BP 163/73; PULSE 83; RESP 18
[2019-02-15] MEDS: ONDANSETRON 4 MG INJ IV PRN (20:21)
[2019-02-16] MEDS: HYDROCODONE/APAP (5/325) TAB PO PRN ×6 (00:39→21:12)
[2019-02-16] MEDS: METOCLOPRAMIDE 10 MG INJ IV SCH ×4 (00:39→17:25)
[2019-02-16 02:00] VITALS: BP 148/74; PULSE 78; RESP 18
[2019-02-16] MEDS: PIPER-TAZO 3.375 GM IV (PMX) 100 ML IVPB SCH ×3 (02:04→17:25)
[2019-02-16] MEDS: PANTOPRAZOLE (EC) 40 MG TAB PO SCH (05:59)
[2019-02-16 07:39] VITALS: BP 131/66; PULSE 83; RESP 18
[2019-02-16] MEDS: POLYETHYLENE GLYCOL 17 GM PACKET PO SCH (08:41)
[2019-02-16] MEDS: LACTATED RINGER'S 1,000 ML IV SCH (08:47)
[2019-02-16] MEDS: DOCUSATE SODIUM 250 MG CAP PO SCH (08:47)
[2019-02-16] MEDS: METOPROLOL (XL) 100 MG TAB PO SCH (08:48)
--- NOTE | 2019-02-16 09:58 | QN ---
Documentation Comment GI evaluation is noted No significant change As there are no new surgical recommendations, will sign off and see again prn your request SARBJIT BAILEY MD Feb 16, 2019 09:58
--- NOTE | 2019-02-16 13:43 | CONS ---
Assessment/Plan Assessment/Plan Assessment/Plan (Daily) #Liver mass #Biliary obstruction - s/p unsuccessful cannulation attempt #Pancreatic Cyst #HTN #Hyperlipidemia -fliver bx consistent with cholangiocarcinoma. There is a very high chance of malignancy especially given the elevated CA 19-9>1000 -s/p percutaneous biliary drainage. -f/u Dr. Davila has evaluated the scan and states this would be a very complicated and extensive surgery that would need evaluation at a tertiary care center. -continue to monitor pancreatic cyst with serial imaging -continue current management of HTN, and HL per the primary team Patient seen in collaboration with Dr Esquivel Consultation Date/Type/Reason Admit Date/Time Feb 05, 2019 at 05:27 Initial Consult Date 02/07/19 Type of Consult oncology Requesting Provider: JENNIE JEAN BAPTISTE NP Date/Time of Note DATE: 02/16/19 TIME: 13:42 24 HR Interval Summary Free Text/Dictation no events overnight c/o abdominal pain- effective pain control Pending transfer to acute hospital for tertiary level care daughter at bed side- all Qs answered dw staff Constitutional: requiring O2 Detailed Summary Eyes: no complaints ENT: no complaints Respiratory: no complaints Cardiovascular: no complaints Gastrointestinal: no complaints Genitourinary: no complaints Musculoskeletal: other (generelized weakness) Neurologic: no complaints Endocrine: no complaints Lymphatic: no complaints Psychological: nl mood/affect Immunologic: no complaints Exam/Review of Systems Exam Vitals Vital Signs Date Temp Pulse Resp B/P (MAP) Pulse Ox O2 O2 Flow FiO2 Time Delivery Rate 02/16/19 Nasal 2.0 08:30 Cannula 02/16/19 98.3 83 18 131/66 97 07:39 (87) Intake and Output 02/15/19 02/15/19 02/16/19 1515:00 23:00 07:00 IntakeIntake Total 100 ml 1190 ml 350 ml OutputOutput Total 130 ml 140 ml BalanceBalance -30 ml 1190 ml 210 ml Constitutional: alert, well developed Psych: nl mood/affect Eyes: nl lids, nl sclera ENMT: nl external ears & nose Neck: non-tender Respiratory: clear to auscultation Cardiovascular: nl pulses, other Gastrointestinal: soft, tender (ROQ - tenderness noted ) Musculoskeletal: nl extremities to inspection Extremities: normal pulses Neurological: nl speech Results Result Diagram: 02/14/19 0441 02/13/19 1905 Results 24hrs Laboratory Tests Test 02/16/19 00:45 Stool Occult Blood POSITIVE Medications Medication Current Medications IV Flush (NS 3 ml) 3 ml PER PROTOCOL IV ; Start 02/05/19 at 06:00 Ondansetron HCl (Zofran Inj) 4 mg Q6H PRN IV NAUSEA/VOMITING Last administered on 02/15/19 20:21; Admin Dose 4 MG; Start 02/05/19 at 06:00 Acetaminophen (Tylenol Tab) 650 mg Q6H PRN PO .PAIN 1-3 OR TEMP Last administered on 02/10/19 03:22; Admin Dose 650 MG; Start 02/05/19 at 06:00 Docusate Sodium (Colace) 250 mg DAILY PO Last administered on 02/16/19 08:47; Admin Dose 250 MG; Start 02/05/19 at 10:00 Metoprolol Succinate (Toprol Xl) 100 mg DAILY PO Last administered on 02/16/19 08:48; Admin Dose 100 MG; Start 02/05/19 at 10:00 Hydralazine HCl (Apresoline) 10 mg Q6H PRN IV sbp>160 Last administered on 02/15/19 20:15; Admin Dose 10 MG; Start 02/05/19 at 09:30 Acetaminophen (Tylenol Supp) 650 mg Q6H PRN [place] FEVER Last administered on 02/05/19 18:28; Admin Dose 650 MG; Start 02/05/19 at 12:30 Pantoprazole (Protonix Tab) 40 mg DAILY@06 PO Last administered on 02/16/19 05:59; Admin Dose 40 MG; Start 02/09/19 at 06:00 Ibuprofen (Motrin) 600 mg Q6H PRN PO MILD PAIN LEVEL 1-3; Start 02/12/19 at 10:30 Acetaminophen/ Hydrocodone Bitart ([place] (5/325)) 1 tab Q4H PRN PO MODERATE PAIN LEVEL 4-6 Last administered on 02/16/19 12:49; Admin Dose 1 TAB; Start 02/12/19 at 16:30 Ibuprofen (Motrin) 400 mg Q6H PRN PO MILD PAIN(1-3) OR TEMP>38C; Start 02/12/19 at 16:30 Piperacillin Sod/ Tazobactam Sod 100 ml @ 25 mls/hr TID@02,10,18 IVPB Last administered on 02/16/19at 09:01; Admin Dose 25 MLS/HR; Start 02/13/19 at 14:00; Stop 02/20/19 at 13:59 Lactated Ringer's 1,000 ml @ 75 mls/hr [id number] IV Last administered on 02/16/19at 08:47; Admin Dose 75 MLS/HR; Start 02/13/19 at 14:30 Polyethylene Glycol (Miralax) 8.5 gm DAILY PO ; Start 02/14/19 at 14:00 Bisacodyl (Dulcolax) 5 mg DAILY PRN PO CONSTIPATION; Start 02/14/19 at 12:30 Metoclopramide HCl (Reglan) 10 mg Q6 IV Last administered on 02/16/19at 11:48; Admin Dose 10 MG; Start 02/14/19 at 18:00 CHERELLE MERRITT Feb 16, 2019 13:43
[2019-02-16 14:00] VITALS: BP 122/61; PULSE 71; RESP 18
--- NOTE | 2019-02-16 14:38 | PN ---
Date/Time of Note Date/Time of Note DATE: 02/16/19 TIME: 14:34 Assessment/Plan VTE Prophylaxis Risk score (from Ns)>0 risk: 4 SCD applied (from Ns): Yes Pharmacological prophylaxis: NA/contraindicated Pharm contraindication: liver dx Lines/Catheters IV Catheter Type (from [facility]): Peripheral IV Assessment/Plan Assessment/Plan CT showing possible abscess with diverticulum perforation IR unable to access for drainage. Hepatic mass AFP: 3.60 CEA: 5.3 CA 199: >1000 Ca125: 31.1 MRI- Peripherally enhancing, cystic versus centrally necrotic 4.2 cm lesion is seen centrally within the liver, concerning for neoplasm. ERCP 02/06/2019 High-grade papillary stricture with proximal dilatation. Unsuccessful cannulation. Attempted precut access sphincterotomy resulted in tracking adjacent to the biliary tree. Reported coffee-ground emesis/melena- resolved Normocytic anemia Transaminitis - trending down Direct hyperbilirubinemia- resolved Epigastric/RUQ pain Fevers- resolved Sigmoid diverticulitis, mild Hypokalemia-replaced History of cholecystectomy History of Renal stone -S/p lithotripsy Hypertension Dyslipidemia Urinary retention Plan: Possible plan for transfer to tertiary care center. Continue empiric antibiotics for abscess Continue reglan 10 mg q6 Recommend ID consult PPI daily Patient seen in collaboration with Dr. Nieves Subjective: Course reviewed with nursing staff Patient interviewed and examined All labs, imaging and other results reviewed Patient is comfortable in bed, denies pain, tolerating diet. Planned for transfer to tertiary care center for further intervention of cholangiocarcinoma. Discussed with family at bedside. Continue to monitor. PHYSICAL EXAMINATION: GENERAL: Alert & oriented x 3, SKIN: No lesions. HEAD: Normocephalic, atraumatic, no tenderness. EYES: Pupils equal reactive to light and accommodation, no discharge. EARS/NOSE AND THROAT: Ears normal, nose normal. NECK: Supple, no masses. CHEST: Inspection within normal limits. CARDIOVASCULAR: Heart: Regular rate and rhythm RESPIRATORY: Lungs clear to auscultation GASTROINTESTINAL AND LIVER: Abdomen: Soft, generalized abdominal pain, non- distended, no hernias, normoactive bowel sounds. Rectal: Deferred. EXTREMITIES: No cyanosis, clubbing or edema. Result Diagram: 02/14/19 0441 02/13/19 1905 Results 24hrs Laboratory Tests Test 02/16/19 00:45 Stool Occult Blood POSITIVE CC: RAYNA NIEVES MD ; Exam/Review of Systems Exam Vitals Vital Signs Date Temp Pulse Resp B/P (MAP) Pulse Ox O2 O2 Flow FiO2 Time Delivery Rate 02/16/19 Nasal 2.0 08:30 Cannula 02/16/19 98.3 83 18 131/66 97 07:39 (87) Intake and Output 02/15/19 02/15/19 02/16/19 1515:00 23:00 07:00 IntakeIntake Total 100 ml 1190 ml 350 ml OutputOutput Total 130 ml 140 ml BalanceBalance -30 ml 1190 ml 210 ml Results Results 24hrs Laboratory Tests Test 02/16/19 00:45 Stool Occult Blood POSITIVE Medications Medication Current Medications IV Flush (NS 3 ml) 3 ml PER PROTOCOL IV ; Start 02/05/19 at 06:00 Ondansetron HCl (Zofran Inj) 4 mg Q6H PRN IV NAUSEA/VOMITING Last administered on 02/15/19 20:21; Admin Dose 4 MG; Start 02/05/19 at 06:00 Acetaminophen (Tylenol Tab) 650 mg Q6H PRN PO .PAIN 1-3 OR TEMP Last administered on 02/10/19 03:22; Admin Dose 650 MG; Start 02/05/19 at 06:00 Docusate Sodium (Colace) 250 mg DAILY PO Last administered on 02/16/19 08:47; Admin Dose 250 MG; Start 02/05/19 at 10:00 Metoprolol Succinate (Toprol Xl) 100 mg DAILY PO Last administered on 02/16/19 08:48; Admin Dose 100 MG; Start 02/05/19 at 10:00 Hydralazine HCl (Apresoline) 10 mg Q6H PRN IV sbp>160 Last administered on 02/15/19 20:15; Admin Dose 10 MG; Start 02/05/19 at 09:30 Acetaminophen (Tylenol Supp) 650 mg Q6H PRN [place] FEVER Last administered on 02/05/19 18:28; Admin Dose 650 MG; Start 02/05/19 at 12:30 Pantoprazole (Protonix Tab) 40 mg DAILY@06 PO Last administered on 02/16/19 05:59; Admin Dose 40 MG; Start 02/09/19 at 06:00 Ibuprofen (Motrin) 600 mg Q6H PRN PO MILD PAIN LEVEL 1-3; Start 02/12/19 at 10:30 Acetaminophen/ Hydrocodone Bitart ([place] (5/325)) 1 tab Q4H PRN PO MODERATE PAIN LEVEL 4-6 Last administered on 02/16/19at 12:49; Admin Dose 1 TAB; Start 02/12/19 at 16:30 Ibuprofen (Motrin) 400 mg Q6H PRN PO MILD PAIN(1-3) OR TEMP>38C; Start 02/12/19 at 16:30 Piperacillin Sod/ Tazobactam Sod 100 ml @ 25 mls/hr TID@02,10,18 IVPB Last administered on 02/16/19at 09:01; Admin Dose 25 MLS/HR; Start 02/13/19 at 14:00; Stop 02/20/19 at 13:59 Polyethylene Glycol (Miralax) 8.5 gm DAILY PO ; Start 02/14/19 at 14:00 Bisacodyl (Dulcolax) 5 mg DAILY PRN PO CONSTIPATION; Start 02/14/19 at 12:30 Metoclopramide HCl (Reglan) 10 mg Q6 IV Last administered on 02/16/19at 11:48; Admin Dose 10 MG; Start 02/14/19 at 18:00 ADAM HAMILTON NP Feb 16, 2019 14:38
--- NOTE | 2019-02-16 19:08 | PN ---
Date/Time of Note Date/Time of Note DATE: 02/16/19 TIME: 19:07 Assessment/Plan VTE Prophylaxis Risk score (from Nsg)>0 risk: 4 SCD applied (from Nsg): Yes Pharmacological prophylaxis: heparin Lines/Catheters IV Catheter Type (from Nrsg): Peripheral IV Assessment/Plan Hospital Course Calm No distress RRR CTAB RUQ biliary drain in place Abdomen with severe pain in RLQ Ext without edema ASSESSMENT AND PLAN:84 yo F w/htn,dlp,cholecystectomy,renal stones, lithotripsy here w/ coffee-ground emesis, epigastric/right-sided abdominal pain, and black tarry stoolx 1mos duration and found to have intrahepatic mass with biliary dilitation concerning for malignancy, now s/p PTC drain and 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 Course complicated by abdominal pain and poor PO intake.. Pending transfer to [facility] for resection of liver mass Abdominal fluid collection with possible perforated diverticulum: - Started on IV zoysn empirically, though I do not know if this is infection or not, but beneft of abx outweighs risk at this point - It is not clear to me whether this is infected or not. IR unable to access it. Surgeyr not indicated per Dr Dallas. Will continue medical management Hepatic mass W/Biliary obstruction -CT also noted for hepatic ductal obstruction with intrahepatic duct dilatation bilaterally - s/p biopsy showing carcinoma - Surgical management will have to be performed at tertiary center per Dr Kendrick Transaminase elevation with hyperbilirubinemia secondary to above -Attempted ERCP 02/06/2019, unsuccessful. s/p Percutaneous biliary drainage. - Bilis now normalized DVT prophylaxis: SCDs PUD prophylaxis: Protonix CODE STATUS: Full code Disposition: Transfer to tertiary center for surgery Result Diagram: 02/14/19 0441 02/13/19 1905 Results 24hrs Laboratory Tests Test 02/16/19 00:45 Stool Occult Blood POSITIVE Subjective 24 Hr Interval Summary Free Text/Dictation No change to clinical status Still wtih RUQ pain I spoke to [facility] surgeon, case being presented to liver specialists Exam/Review of Systems Exam Vitals Vital Signs Date Temp Pulse Resp B/P (MAP) Pulse Ox O2 O2 Flow FiO2 Time Delivery Rate 02/16/19 2.0 16:30 02/16/19 98.2 71 18 122/61 99 Nasal 14:00 (81) Cannula Intake and Output 02/15/19 02/15/19 02/16/19 1515:00 23:00 07:00 IntakeIntake Total 100 ml 1190 ml 350 ml OutputOutput Total 130 ml 140 ml BalanceBalance -30 ml 1190 ml 210 ml Results Results 24hrs Laboratory Tests Test 02/16/19 00:45 Stool Occult Blood POSITIVE Medications Medication Current Medications IV Flush (NS 3 ml) 3 ml PER PROTOCOL IV ; Start 02/05/19 at 06:00 Ondansetron HCl (Zofran Inj) 4 mg Q6H PRN IV NAUSEA/VOMITING Last administered on 02/15/19 20:21; Admin Dose 4 MG; Start 02/05/19 at 06:00 Acetaminophen (Tylenol Tab) 650 mg Q6H PRN PO .PAIN 1-3 OR TEMP Last administered on 02/10/19 03:22; Admin Dose 650 MG; Start 02/05/19 at 06:00 Docusate Sodium (Colace) 250 mg DAILY PO Last administered on 02/16/19 08:47; Admin Dose 250 MG; Start 02/05/19 at 10:00 Metoprolol Succinate (Toprol Xl) 100 mg DAILY PO Last administered on 02/16/19 08:48; Admin Dose 100 MG; Start 02/05/19 at 10:00 Hydralazine HCl (Apresoline) 10 mg Q6H PRN IV sbp>160 Last administered on 02/15/19 20:15; Admin Dose 10 MG; Start 02/05/19 at 09:30 Acetaminophen (Tylenol Supp) 650 mg Q6H PRN [place] FEVER Last administered on 02/05/19 18:28; Admin Dose 650 MG; Start 02/05/19 at 12:30 Pantoprazole (Protonix Tab) 40 mg DAILY@06 PO Last administered on 02/16/19 05:59; Admin Dose 40 MG; Start 02/09/19 at 06:00 Ibuprofen (Motrin) 600 mg Q6H PRN PO MILD PAIN LEVEL 1-3; Start 02/12/19 at 10:30 Acetaminophen/ Hydrocodone Bitart ([place] (5/325)) 1 tab Q4H PRN PO MODERATE PAIN LEVEL 4-6 Last administered on 02/16/19 17:25; Admin Dose 1 TAB; Start 02/12/19 at 16:30 Ibuprofen (Motrin) 400 mg Q6H PRN PO MILD PAIN(1-3) OR TEMP>38C; Start 02/12/19 at 16:30 Piperacillin Sod/ Tazobactam Sod 100 ml @ 25 mls/hr TID@02,10,18 IVPB Last ad ministered on 02/16/19at 17:25; Admin Dose 25 MLS/HR; Start 02/13/19 at 14:00; Stop 02/20/19 at 13:59 Polyethylene Glycol (Miralax) 8.5 gm DAILY PO ; Start 02/14/19 at 14:00 Bisacodyl (Dulcolax) 5 mg DAILY PRN PO CONSTIPATION; Start 02/14/19 at 12:30 Metoclopramide HCl (Reglan) 10 mg Q6 IV Last administered on 02/16/19at 17:25; Admin Dose 10 MG; Start 02/14/19 at 18:00 BRONWYN FRAUSTO MD Feb 16, 2019 19:08
[2019-02-16 20:00] VITALS: BP 134/69; PULSE 72; RESP 17
[2019-02-17] MEDS: PIPER-TAZO 3.375 GM IV (PMX) 100 ML IVPB SCH ×2 (01:09→09:11)
[2019-02-17] MEDS: METOCLOPRAMIDE 10 MG INJ IV SCH ×3 (01:09→12:22)
[2019-02-17] MEDS: HYDROCODONE/APAP (5/325) TAB PO PRN ×4 (01:17→15:15)
[2019-02-17 02:08] VITALS: BP 135/65; PULSE 78; RESP 17
[2019-02-17] MEDS: PANTOPRAZOLE (EC) 40 MG TAB PO SCH (05:59)
[2019-02-17 08:56] VITALS: BP 131/55; PULSE 78; RESP 18
[2019-02-17] MEDS: POLYETHYLENE GLYCOL 17 GM PACKET PO SCH ×2 (09:00→09:11)
[2019-02-17] MEDS: DOCUSATE SODIUM 250 MG CAP PO SCH (09:10)
[2019-02-17] MEDS: METOPROLOL (XL) 100 MG TAB PO SCH (09:11)
[2019-02-17] MEDS: ONDANSETRON 4 MG INJ IV PRN ×2 (09:19→15:17)
--- NOTE | 2019-02-17 10:33 | CONS ---
Assessment/Plan Assessment/Plan Hospital Course (Demo Recall) #Liver mass #Biliary obstruction - s/p unsuccessful cannulation attempt #Pancreatic Cyst #HTN #Hyperlipidemia #Perforated diverticular abscess -liver bx consistent with cholangiocarcinoma. There is a very high chance of malignancy especially given the elevated CA 19-9>1000 -s/p percutaneous biliary drainage. -f/u Dr. Davila has evaluated the scan and states this would be a very complicated and extensive surgery that would need evaluation at a tertiary care center. Pt has since been accepted to [facility] -continue antibiotics for intrabdominal abscess -continue to monitor pancreatic cyst with serial imaging -continue current management of HTN, and HL per the primary team Thank you for the opportunity to participate in this patients care A total of 40 minutes of face to face time was spent speaking with the patient, of which greater than 50% was spent in counseling and coordination of care and the detailed question and answer session. Consultation Date/Type/Reason Admit Date/Time Feb 05, 2019 at 05:27 Initial Consult Date 02/07/19 Type of Consult oncology Reason for Consultation liver mass Requesting Provider: JENNIE JEAN BAPTISTE NP Date/Time of Note DATE: 02/17/19 TIME: 10:17 24 HR Interval Summary Free Text/Dictation pt remains on antibiotics for perforated abscess Exam/Review of Systems Exam Vitals Vital Signs Date Temp Pulse Resp B/P (MAP) Pulse Ox O2 O2 Flow FiO2 Time Delivery Rate 02/17/19 97.9 78 18 131/55 95 08:56 (80) 02/17/19 2.0 05:36 02/16/19 Nasal 20:00 Cannula Intake and Output 02/16/19 02/16/19 02/17/19 1515:00 23:00 07:00 IntakeIntake Total 100 ml 240 ml OutputOutput Total 150 ml 90 ml BalanceBalance -50 ml 150 ml Constitutional: oriented, distress, frail Head: normocephalic Eyes: nl conjunctiva ENMT: nl external ears & nose Neck: supple Respiratory: clear to auscultation Cardiovascular: regular rate and rhythm Gastrointestinal: soft, other (percutaneous biliary drain in place) Musculoskeletal: nl extremities to inspection Extremities: normal pulses Results Result Diagram: 02/17/19 0444 02/17/194 Results 24hrs Laboratory Tests Test 02/17/19 04:44 White Blood Count 11.2 H Red Blood Count 3.65 L Hemoglobin 10.7 L Hematocrit 33.3 L Mean Corpuscular Volume 91.2 Mean Corpuscular Hemoglobin 29.3 Mean Corpuscular Hemoglobin Concent 32.1 Red Cell Distribution Width 17.3 H Platelet Count 448 #H Mean Platelet Volume 10.5 H Immature Granulocytes % 2.200 H Neutrophils % 76.6 Lymphocytes % 12.8 L Monocytes % 7.5 Eosinophils % 0.0 Basophils % 0.9 Nucleated Red Blood Cells % 0.0 Immature Granulocytes # 0.250 H Neutrophils # 8.6 H Lymphocytes # 1.4 Monocytes # 0.8 Eosinophils # 0.0 Basophils # 0.1 Nucleated Red Blood Cells # 0.0 Sodium Level 144 Potassium Level 3.6 Chloride Level 107 Carbon Dioxide Level 29 Anion Gap 8 Blood Urea Nitrogen 8 Creatinine 0.65 Est Glomerular Filtrat Rate mL/min Glucose Level 71 Calcium Level 9.6 Total Bilirubin 0.5 Direct Bilirubin 0.00 Indirect Bilirubin 0.5 Aspartate Amino Transf (AST/SGOT) 44 Alanine Aminotransferase (ALT/SGPT) 27 Alkaline Phosphatase 331 H Total Protein 6.2 Albumin 2.8 L Globulin 3.40 H Albumin/Globulin Ratio 0.82 Medications Medication Current Medications IV Flush (NS 3 ml) 3 ml PER PROTOCOL IV ; Start 02/05/19 at 06:00 Ondansetron HCl (Zofran Inj) 4 mg Q6H PRN IV NAUSEA/VOMITING Last administered on 02/17/19 09:19; Admin Dose 4 MG; Start 02/05/19 at 06:00 Acetaminophen (Tylenol Tab) 650 mg Q6H PRN PO .PAIN 1-3 OR TEMP Last administered on 02/10/19 03:22; Admin Dose 650 MG; Start 02/05/19 at 06:00 Docusate Sodium (Colace) 250 mg DAILY PO Last administered on 02/17/19 09:10; Admin Dose 250 MG; Start 02/05/19 at 10:00 Metoprolol Succinate (Toprol Xl) 100 mg DAILY PO Last administered on 02/17/19 09:11; Admin Dose 100 MG; Start 02/05/19 at 10:00 Hydralazine HCl (Apresoline) 10 mg Q6H PRN IV sbp>160 Last administered on 02/15/19 20:15; Admin Dose 10 MG; Start 02/05/19 at 09:30 Acetaminophen (Tylenol Supp) 650 mg Q6H PRN [place] FEVER Last administered on 02/05/19 18:28; Admin Dose 650 MG; Start 02/05/19 at 12:30 Pantoprazole (Protonix Tab) 40 mg DAILY@06 PO Last administered on 02/17/19 05:59; Admin Dose 40 MG; Start 02/09/19 at 06:00 Ibuprofen (Motrin) 600 mg Q6H PRN PO MILD PAIN LEVEL 1-3; Start 02/12/19 at 10:30 Acetaminophen/ Hydrocodone Bitart ([place] (5/325)) 1 tab Q4H PRN PO MODERATE PAIN LEVEL 4-6 Last administered on 02/17/19 05:59; Admin Dose 1 TAB; Start at 16:30 Ibuprofen (Motrin) 400 mg Q6H PRN PO MILD PAIN(1-3) OR TEMP>38C; Start 02/12/19 at 16:30 Piperacillin Sod/ Tazobactam Sod 100 ml @ 25 mls/hr TID@02,10,18 IVPB Last administered on 02/17/19 09:11; Admin Dose 25 MLS/HR; Start 02/13/19 at 14:00; Stop 02/20/19 at 13:59 Polyethylene Glycol (Miralax) 8.5 gm DAILY PO Last administered on 02/17/19 09:11; Admin Dose 8.5 GM; Start 02/14/19 at 14:00 Bisacodyl (Dulcolax) 5 mg DAILY PRN PO CONSTIPATION; Start 02/14/19 at 12:30 Metoclopramide HCl (Reglan) 10 mg Q6 IV Last administered on 02/17/19 05:59; Admin Dose 10 MG; Start 02/14/19 at 18:00 MARK FORREST M.D. Feb 17, 2019 10:28
--- NOTE | 2019-02-17 15:47 | PN ---
Date/Time of Note Date/Time of Note DATE: 02/17/19 TIME: 15:45 Assessment/Plan VTE Prophylaxis Risk score (from Ns)>0 risk: 5 SCD applied (from Ns): Yes Pharmacological prophylaxis: NA/contraindicated Pharm contraindication: surgical contra Lines/Catheters IV [facility]atheter [facility] (from [facility]): Saline Lock Assessment/Plan Hospital Course ASSESSMENT AND PLAN:84 yo F w/htn,dlp,cholecystectomy,renal stones, lithotripsy here w/ coffee-ground emesis, epigastric/right-sided abdominal pain, and black tarry stoolx 1mos duration and found to have intrahepatic mass with biliary dilation concerning for malignancy, now s/p PTC drain and biopsies of mass showing poorly differentiated carcinoma. Course complicated by abdominal pain and poor PO intake.. Pending transfer to tertiary center for resection of liver mass Abdominal fluid collection with possible perforated diverticulum: - Started on IV zoysn empirically, though I do not know if this is infection or not, the benefit of antibiotics outweighs risk at this point - It is not clear to me whether this is infected or not. IR unable to access it. Surgery not indicated per Dr Dallas. Will continue medical management Hepatic mass W/Biliary obstruction -CT also noted for hepatic ductal obstruction with intrahepatic duct dilatation bilaterally - s/p biopsy showing carcinoma - Surgical management will have to be performed at tertiary center per Dr Kendrick Transaminase elevation with hyperbilirubinemia secondary to above -Attempted ERCP 02/06/2019, unsuccessful. s/p Percutaneous biliary drainage. - Bilis now normalized DVT prophylaxis: SCDs PUD prophylaxis: Protonix CODE STATUS: Full code Disposition: Transfer to tertiary [facility] for [facility] Result Diagram: 02/17/19 0444 02/17/19 0444 Results 24hrs Laboratory Tests Test 02/17/19 04:44 White Blood Count 11.2 H Red Blood Count 3.65 L Hemoglobin 10.7 L Hematocrit 33.3 L Mean Corpuscular Volume 91.2 Mean Corpuscular Hemoglobin 29.3 Mean Corpuscular Hemoglobin Concent 32.1 Red Cell Distribution Width 17.3 H Platelet Count 448 #H Mean Platelet Volume 10.5 H Immature Granulocytes % 2.200 H Neutrophils % 76.6 Lymphocytes % 12.8 L Monocytes % 7.5 Eosinophils % 0.0 Basophils % 0.9 Nucleated Red Blood Cells % 0.0 Immature Granulocytes # 0.250 H Neutrophils # 8.6 H Lymphocytes # 1.4 Monocytes # 0.8 Eosinophils # 0.0 Basophils # 0.1 Nucleated Red Blood Cells # 0.0 Sodium Level 144 Potassium Level 3.6 Chloride Level 107 Carbon Dioxide Level 29 Anion Gap 8 Blood Urea Nitrogen 8 Creatinine 0.65 Est Glomerular Filtrat Rate mL/min Glucose Level 71 Calcium Level 9.6 Total Bilirubin 0.5 Direct Bilirubin 0.00 Indirect Bilirubin 0.5 Aspartate Amino Transf (AST/SGOT) 44 Alanine Aminotransferase (ALT/SGPT) 27 Alkaline Phosphatase 331 H Total Protein 6.2 Albumin 2.8 L Globulin 3.40 H Albumin/Globulin Ratio 0.82 Subjective 24 Hr Interval Summary Gastrointestinal: pain Exam/Review of Systems Exam Vitals Vital Signs Date Temp Pulse Resp B/P (MAP) Pulse Ox O2 O2 Flow FiO2 Time Delivery Rate 02/17/19 Nasal 2.0 09:00 Cannula 02/17/19 97.9 78 18 131/55 95 08:56 (80) Intake and Output 02/16/19 02/16/19 02/17/19 1515:00 23:00 07:00 IntakeIntake Total 100 ml 240 ml OutputOutput Total 150 ml 90 ml BalanceBalance -50 ml 150 ml Constitutional: alert, oriented Respiratory: clear to auscultation Cardiovascular: regular rate and rhythm Gastrointestinal: soft; No distended Musculoskeletal: nl extremities to inspection Results Results 24hrs Laboratory Tests Test 02/17/19 04:44 White Blood Count 11.2 H Red Blood Count 3.65 L Hemoglobin 10.7 L Hematocrit 33.3 L Mean Corpuscular Volume 91.2 Mean Corpuscular Hemoglobin 29.3 Mean Corpuscular Hemoglobin Concent 32.1 Red Cell Distribution Width 17.3 H Platelet Count 448 #H Mean Platelet Volume 10.5 H Immature Granulocytes % 2.200 H Neutrophils % 76.6 Lymphocytes % 12.8 L Monocytes % 7.5 Eosinophils % 0.0 Basophils % 0.9 Nucleated Red Blood Cells % 0.0 Immature Granulocytes # 0.250 H Neutrophils # 8.6 H Lymphocytes # 1.4 Monocytes # 0.8 Eosinophils # 0.0 Basophils # 0.1 Nucleated Red Blood Cells # 0.0 Sodium Level 144 Potassium Level 3.6 Chloride Level 107 Carbon Dioxide Level 29 Anion Gap 8 Blood Urea Nitrogen 8 Creatinine 0.65 Est Glomerular Filtrat Rate mL/min Glucose Level 71 Calcium Level 9.6 Total Bilirubin 0.5 Direct Bilirubin 0.00 Indirect Bilirubin 0.5 Aspartate Amino Transf (AST/SGOT) 44 Alanine Aminotransferase (ALT/SGPT) 27 Alkaline Phosphatase 331 H Total Protein 6.2 Albumin 2.8 L Globulin 3.40 H Albumin/Globulin Ratio 0.82 Medications Medication Current Medications IV Flush (NS 3 ml) 3 ml PER PROTOCOL IV ; Start 02/05/19 at 06:00 Ondansetron HCl (Zofran Inj) 4 mg Q6H PRN IV NAUSEA/VOMITING Last administered on 02/17/19 15:17; Admin Dose 4 MG; Start 02/05/19 at 06:00 Acetaminophen (Tylenol Tab) 650 mg Q6H PRN PO .PAIN 1-3 OR TEMP Last administered on 02/10/19 03:22; Admin Dose 650 MG; Start 02/05/19 at 06:00 Docusate Sodium (Colace) 250 mg DAILY PO Last administered on 02/17/19 09:10; Admin Dose 250 MG; Start 02/05/19 at 10:00 Metoprolol Succinate (Toprol Xl) 100 mg DAILY PO Last administered on 02/17/19 09:11; Admin Dose 100 MG; Start 02/05/19 at 10:00 Hydralazine HCl (Apresoline) 10 mg Q6H PRN IV sbp>160 Last administered on 02/15/19 20:15; Admin Dose 10 MG; Start 02/05/19 at 09:30 Acetaminophen (Tylenol Supp) 650 mg Q6H PRN [place] FEVER Last administered on 02/05/19 18:28; Admin Dose 650 MG; Start 02/05/19 at 12:30 Pantoprazole (Protonix Tab) 40 mg DAILY@06 PO Last administered on 02/17/19 05:59; Admin Dose 40 MG; Start 02/09/19 at 06:00 Ibuprofen (Motrin) 600 mg Q6H PRN PO MILD PAIN LEVEL 1-3; Start 02/12/19 at 10:30 Acetaminophen/ Hydrocodone Bitart ([place] (5/325)) 1 tab Q4H PRN PO MODERATE PAIN LEVEL 4-6 Last administered on 02/17/19 15:15; Admin Dose 1 TAB; Start 02/12/19 at 16:30 Ibuprofen (Motrin) 400 mg Q6H PRN PO MILD PAIN(1-3) OR TEMP>38C; Start 02/12/19 at 16:30 Piperacillin Sod/ Tazobactam Sod 100 ml @ 25 mls/hr TID@02,10,18 IVPB Last administered on 02/17/19at 09:11; Admin Dose 25 MLS/HR; Start 02/13/19 at 14:00; Stop 02/20/19 at 13:59 Polyethylene Glycol (Miralax) 8.5 gm DAILY PO ; Start 02/14/19 at 14:00 Bisacodyl (Dulcolax) 5 mg DAILY PRN PO CONSTIPATION; Start 02/14/19 at 12:30 Metoclopramide HCl (Reglan) 10 mg Q6 IV Last administered on 02/17/19at 12:22; Admin Dose 10 MG; Start 02/14/19 at 18:00 ROXANA GONZALES Feb 17, 2019 15:47
--- NOTE | 2019-02-17 16:54 | PN ---
Date/Time of Note Date/Time of Note DATE: 02/17/19 TIME: 16:53 Assessment/Plan VTE Prophylaxis Risk score (from Ns)>0 risk: 5 SCD applied (from Nsg): Yes Pharmacological prophylaxis: other (scds) Lines/Catheters IV [facility]from [facility] Saline Lock Assessment/Plan Hospital Course Assessment/Plan CT showing possible abscess with diverticulum perforation IR unable to access for drainage. Hepatic mass AFP: 3.60 CEA: 5.3 CA 199: >1000 Ca125: 31.1 MRI- Peripherally enhancing, cystic versus centrally necrotic 4.2 cm lesion is seen centrally within the liver, concerning for neoplasm. ERCP 02/06/2019 High-grade papillary stricture with proximal dilatation. Unsuccessful cannulation. Attempted precut access sphincterotomy resulted in tracking adjacent to the biliary tree. Reported coffee-ground emesis/melena- resolved Normocytic anemia Transaminitis - trending down Direct hyperbilirubinemia- resolved Epigastric/RUQ pain Fevers- resolved Sigmoid diverticulitis, mild Hypokalemia-replaced History of cholecystectomy History of Renal stone -S/p lithotripsy Hypertension Dyslipidemia Urinary retention Plan: Transfer to tertiary care center. Continue empiric antibiotics for abscess Continue Reglan 10 mg q6 Recommend ID consult PPI daily Patient seen in collaboration with Dr. Nieves Subjective: Course reviewed with nursing staff Patient interviewed and examined All labs, imaging and other results reviewed Patient is comfortable in bed, denies pain, tolerating diet. Planned for transfer to tertiary care center tonight for further intervention of cholangiocarcinoma. Continue to monitor. PHYSICAL EXAMINATION: GENERAL: Alert & oriented x 3, SKIN: No lesions. HEAD: Normocephalic, atraumatic, no tenderness. EYES: Pupils equal reactive to light and accommodation, no discharge. EARS/NOSE AND THROAT: Ears normal, nose normal. NECK: Supple, no masses. CHEST: Inspection within normal limits. CARDIOVASCULAR: Heart: Regular rate and rhythm RESPIRATORY: Lungs clear to auscultation GASTROINTESTINAL AND LIVER: Abdomen: Soft, generalized abdominal pain, non- distended, no hernias, normoactive bowel sounds. Rectal: Deferred. EXTREMITIES: No cyanosis, clubbing or edema. Result Diagram: 02/17/19 0444 02/17/19 0444 Results 24hrs Laboratory Tests Test 02/17/19 04:44 White Blood Count 11.2 H Red Blood Count 3.65 L Hemoglobin 10.7 L Hematocrit 33.3 L Mean Corpuscular Volume 91.2 Mean Corpuscular Hemoglobin 29.3 Mean Corpuscular Hemoglobin Concent 32.1 Red Cell Distribution Width 17.3 H Platelet Count 448 #H Mean Platelet Volume 10.5 H Immature Granulocytes % 2.200 H Neutrophils % 76.6 Lymphocytes % 12.8 L Monocytes % 7.5 Eosinophils % 0.0 Basophils % 0.9 Nucleated Red Blood Cells % 0.0 Immature Granulocytes # 0.250 H Neutrophils # 8.6 H Lymphocytes # 1.4 Monocytes # 0.8 Eosinophils # 0.0 Basophils # 0.1 Nucleated Red Blood Cells # 0.0 Sodium Level 144 Potassium Level 3.6 Chloride Level 107 Carbon Dioxide Level 29 Anion Gap 8 Blood Urea Nitrogen 8 Creatinine 0.65 Est Glomerular Filtrat Rate mL/min Glucose Level 71 Calcium Level 9.6 Total Bilirubin 0.5 Direct Bilirubin 0.00 Indirect Bilirubin 0.5 Aspartate Amino Transf (AST/SGOT) 44 Alanine Aminotransferase (ALT/SGPT) 27 Alkaline Phosphatase 331 H Total Protein 6.2 Albumin 2.8 L Globulin 3.40 H Albumin/Globulin Ratio 0.82 Exam/Review of Systems Exam Vitals Vital Signs Date Temp Pulse Resp B/P (MAP) Pulse Ox O2 O2 Flow FiO2 Time Delivery Rate 02/17/19 Nasal 2.0 09:00 Cannula 02/17/19 97.9 78 18 131/55 95 08:56 (80) Intake and Output 02/16/19 02/16/19 02/17/19 1414:59 22:59 06:59 IntakeIntake Total 100 ml 240 ml OutputOutput Total 150 ml 90 ml BalanceBalance -50 ml 150 ml Results Results 24hrs Laboratory Tests Test 02/17/19 04:44 White Blood Count 11.2 H Red Blood Count 3.65 L Hemoglobin 10.7 L Hematocrit 33.3 L Mean Corpuscular Volume 91.2 Mean Corpuscular Hemoglobin 29.3 Mean Corpuscular Hemoglobin Concent 32.1 Red Cell Distribution Width 17.3 H Platelet Count 448 #H Mean Platelet Volume 10.5 H Immature Granulocytes % 2.200 H Neutrophils % 76.6 Lymphocytes % 12.8 L Monocytes % 7.5 Eosinophils % 0.0 Basophils % 0.9 Nucleated Red Blood Cells % 0.0 Immature Granulocytes # 0.250 H Neutrophils # 8.6 H Lymphocytes # 1.4 Monocytes # 0.8 Eosinophils # 0.0 Basophils # 0.1 Nucleated Red Blood Cells # 0.0 Sodium Level 144 Potassium Level 3.6 Chloride Level 107 Carbon Dioxide Level 29 Anion Gap 8 Blood Urea Nitrogen 8 Creatinine 0.65 Est Glomerular Filtrat Rate mL/min Glucose Level 71 Calcium Level 9.6 Total Bilirubin 0.5 Direct Bilirubin 0.00 Indirect Bilirubin 0.5 Aspartate Amino Transf (AST/SGOT) 44 Alanine Aminotransferase (ALT/SGPT) 27 Alkaline Phosphatase 331 H Total Protein 6.2 Albumin 2.8 L Globulin 3.40 H Albumin/Globulin Ratio 0.82 Medications Medication Current Medications IV Flush (NS 3 ml) 3 ml PER PROTOCOL IV ; Start 02/05/19 at 06:00 Ondansetron HCl (Zofran Inj) 4 mg Q6H PRN IV NAUSEA/VOMITING Last administered on 02/17/19 15:17; Admin Dose 4 MG; Start 02/05/19 at 06:00 Acetaminophen (Tylenol Tab) 650 mg Q6H PRN PO .PAIN 1-3 OR TEMP Last administered on 02/10/19 03:22; Admin Dose 650 MG; Start 02/05/19 at 06:00 Docusate Sodium (Colace) 250 mg DAILY PO Last administered on 02/17/19 09:10; Admin Dose 250 MG; Start 02/05/19 at 10:00 Metoprolol Succinate (Toprol Xl) 100 mg DAILY PO Last administered on 02/17/19 09:11; Admin Dose 100 MG; Start 02/05/19 at 10:00 Hydralazine HCl (Apresoline) 10 mg Q6H PRN IV sbp>160 Last administered on 02/15/19 20:15; Admin Dose 10 MG; Start 02/05/19 at 09:30 Acetaminophen (Tylenol Supp) 650 mg Q6H PRN [place] FEVER Last administered on 02/05/19 18:28; Admin Dose 650 MG; Start 02/05/19 at 12:30 Pantoprazole (Protonix Tab) 40 mg DAILY@06 PO Last administered on 02/17/19 05:59; Admin Dose 40 MG; Start 02/09/19 at 06:00 Ibuprofen (Motrin) 600 mg Q6H PRN PO MILD PAIN LEVEL 1-3; Start 02/12/19 at 10:30 Acetaminophen/ Hydrocodone Bitart ([place] (5/325)) 1 tab Q4H PRN PO MODERATE PAIN LEVEL 4-6 Last administered on 02/17/19at 15:15; Admin Dose 1 TAB; Start 02/12/19 at 16:30 Ibuprofen (Motrin) 400 mg Q6H PRN PO MILD PAIN(1-3) OR TEMP>38C; Start 02/12/19 at 16:30 Piperacillin Sod/ Tazobactam Sod 100 ml @ 25 mls/hr TID@02,10,18 IVPB Last administered on 02/17/19at 09:11; Admin Dose 25 MLS/HR; Start 02/13/19 at 14:00; Stop 02/20/19 at 13:59 Polyethylene Glycol (Miralax) 8.5 gm DAILY PO ; Start 02/14/19 at 14:00 Bisacodyl (Dulcolax) 5 mg DAILY PRN PO CONSTIPATION; Start 02/14/19 at 12:30 Metoclopramide HCl (Reglan) 10 mg Q6 IV Last administered on 02/17/19at 12:22; Admin Dose 10 MG; Start 02/14/19 at 18:00 MENDY WONG Feb 17, 2019 16:54
== END 2019-02-17 17:28 | disposition short-term general hospital (02) | DRG 408 ==
LOC: E/R 02:23 → 5EC 05:27
PROVIDERS: ADMIT Family Medicine; ATTEND Internal Medicine
PROC: 0F9C8ZZ Drainage of Ampulla of Vater, Via Natural or Artificial Opening Endoscopic (ICD-10-PCS; 2019-02-06)
PROC: 0F9 Hepatobiliary System and Pancreas, Drainage (ICD-10-PCS; principal; 2019-02-07)
PROC: 0FB13ZX Excision of Right Lobe Liver, Percutaneous Approach, Diagnostic (ICD-10-PCS; 2019-02-10)
DX: C22.1 Intrahepatic bile duct carcinoma (principal); K83.1 Obstruction of bile duct; K92.1 Melena; E87.0 Hyperosmolality and hypernatremia; K86.2 Cyst of pancreas; K57.20 Diverticulitis of large intestine with perforation and abscess without bleeding; D64.9 Anemia, unspecified; E78.5 Hyperlipidemia, unspecified; E87.6 Hypokalemia; E80.6 Other disorders of bilirubin metabolism; I10 Essential (primary) hypertension; R33.9 Retention of urine, unspecified; R16.0 Hepatomegaly, not elsewhere classified; Z79.82 Long term (current) use of aspirin
CPT/HCPCS: 36415; 71045; 74176; 74177; 74181; 74182; 74330; 75982; 76705; 76942; 77012; 80048; 80053; 80061; 80076; 81003; 82105; 82150; 82270; 82378; 83036; 83605; 83690; 83735; 84443; 84484; 85025; 85610; 85730; 86301; 86304; 86850; 86900; 86901; 87045; 87086; 88307; 88313; 88341; 88342; 93005; 96361; 96365; 96366; C9113; J0360; J0690; J1100; J1610; J2250; J2270; J2405; J2543; J2765; J3010; J3475; J3480; J7030; J7040; J7042; J7120; Q9967